=== PATIENT | female | born 1970 ===

== ENCOUNTER 2020-07-27 08:48 | Outpatient (REF) | payer OTHER, SELFPAY ==
[2020-07-27 13:50] LABS: CT PCR NOT DETECTED (Not Detect.)
[2020-07-27 13:52] LABS: NG PCR NOT DETECTED (Not Detect.)
[2020-07-28 08:00] LABS: Syphilis Screen Nonreactive (Nonreactive)
[2020-07-28 08:55] LABS: ~HepC Num1 0.29 S/CO (0.00-0.79); ~Hepatitis C Antibody Nonreactive (Nonreactive)
[2020-07-28 09:29] LABS: HBsAGNum1 0.22 S/CO (0.00-0.99); Hepatitis B Surface Antigen Negative (Negative)
[2020-07-28 09:34] LABS: BV Int Neg Control Negative (Negative); BV Int Pos Control Positive (Positive)
[2020-08-02 08:29] LABS: HIV AB/AG Nonreactive (Nonreactive); HIV Num 1 0.11 S/CO (0.00-0.99)
[2020-08-03 06:16] LABS: HPV mRNA E6/E7 Not Detected (Not Detected)
== END 2020-07-27 08:49 | disposition home or self-care (01) ==
LOC: CF 08:48
PROVIDERS: PCP Internal Medicine; Visit Provider Advanced Practice Midwife
DX: Z01.419 Encounter for gynecological examination (general) (routine) without abnormal findings (principal); Z11.59 Encounter for screening for other viral diseases; Z11.4 Encounter for screening for human immunodeficiency virus [HIV]; Z11.3 Encounter for screening for infections with a predominantly sexual mode of transmission; N89.8 Other specified noninflammatory disorders of vagina; R32 Unspecified urinary incontinence
CPT/HCPCS: 86695; 86696; 86780; 86803; 87340; 87389; 87480; 87491; 87510; 87591; 87624; 87625; 87660; 88142

== ENCOUNTER 2020-08-04 10:05 | Outpatient (REF) | payer OTHER, SELFPAY | END 2020-08-04 10:06 | disposition home or self-care (01) | LOC: HO.LAB 10:05 | PROVIDERS: PCP Internal Medicine; Visit Provider Internal Medicine | DX: Z20.828 Contact with and (suspected) exposure to other viral communicable diseases (principal) | CPT/HCPCS: 87635 ==

== ENCOUNTER 2020-09-11 07:52 | Outpatient (REF) | payer OTHER, SELFPAY ==
--- NOTE | 2020-09-11 07:57 | MM_ITS ---
EXAMINATION: MM SCREENING DIGITAL BREAST TOMOSYNTHESIS, BILATERAL CLINICAL INFORMATION: Screening. Asymptomatic. The lifetime risk of breast cancer based on the Tyrer-Cuzick Model is 7%. COMPARISON: Mammography: 09/06/2019, 08/21/2018, 08/25/2017, 04/08/2016 TECHNIQUE: Digital breast tomosynthesis is performed in both the craniocaudal and mediolateral oblique views along with computer-aided detection (CAD). Synthesized 2D images are generated from the tomosynthesis. FINDINGS: There are scattered areas of fibroglandular density (ACR BI-RADS breast composition Category b). Parenchymal pattern is similar to prior studies. There is no developing density or interval mass or architectural abnormality. There is small stable lobulated density mid 12:00 right breast. No abnormal calcifications. The skin contours are smooth. MM/MM tomosynthesis screening BI IMPRESSION: No significant changes from prior studies. ASSESSMENT: BI-RADS 2: Benign RECOMMENDATION: Routine annual mammography screening. This patient's information was entered into a reminder system with a target due date for their next mammogram.
== END 2020-09-11 07:53 | disposition home or self-care (01) ==
LOC: HO.MAMMO 07:52
PROVIDERS: PCP Internal Medicine; Visit Provider Hospitalist
DX: Z12.31 Encounter for screening mammogram for malignant neoplasm of breast (principal)
CPT/HCPCS: 77063; 77067

== ENCOUNTER → 2020-11-19 10:16 | Outpatient (REF) | payer OTHER, SELFPAY ==
--- NOTE | 2020-11-19 10:27 | ECG_ITS ---
Test Reason : UNSPEC CHEST PAIN Blood Pressure : / mmHG Vent. Rate : 073 BPM Atrial Rate : 073 BPM P-R Int : 142 ms QRS Dur : 070 ms QT Int : 376 ms P-R-T Axes : 012 -04 -17 degrees QTc Int : 414 ms Sinus rhythm with Premature atrial complexes Nonspecific T wave abnormality Abnormal ECG When compared with ECG of 11-APR-2017 11:44, Premature atrial complexes are now Present Referred By: Millie Agee Electronically Signed By:Rangle Nava
== END ==
LOC: HO.CARD 10:16
PROVIDERS: PCP Internal Medicine; Visit Provider Nurse Practitioner Family
DX: R07.9 Chest pain, unspecified (principal)
CPT/HCPCS: 93005

== ENCOUNTER 2020-11-20 07:51 | Outpatient (REF) | payer OTHER, SELFPAY ==
[2020-11-20 08:11] LABS: MANUAL DIFF FLAG NO
[2020-11-20 08:25] LABS: Basophils Percent Auto 0.6 % (0-2); Eosinophils Absolute Auto 0.1 X10*3/uL (0.0-0.4); Eosinophils Percent Auto 0.8 % (0-4); Hematocrit 34.7 % (37-47); Hemoglobin 10.9 g/dl (12.0-16.0); Imm Gran Abs Auto 0.01 X10*3/uL (0.00-0.03); Imm Gran Pct Auto 0.2 % (0.0-0.4); Lymphocytes Absolute Auto 2.3 X10*3/uL (1.2-4.9); Lymphocytes Percent Auto 36.3 % (20-40); Mean Corpuscular HGB Conc 31.4 g/dl (31.0-35.0); Mean Corpuscular Volume 85.9 fL (80-98); Mean Platelet Volume 9.7 fL (9.4-12.3); Monocytes Absolute Auto 0.6 X10*3/uL (0.1-1.2); Monocytes Percent Auto 9.3 % (2-11); Neutrophils Absolute Auto 3.3 X10*3/uL (2.0-8.3); Neutrophils Percent Auto 52.8 % (45-73); Platelet Count 363 X10*3/uL (160-400); Red Blood Count 4.04 X10*6/uL (4.20-5.50); Red Cell Distribution Width 16.5 % (11.0-16.0); White Blood Count 6.2 X10*3/uL (4.8-10.8)
[2020-11-20 08:42] LABS: Anion Gap 9 (12-20); Blood Urea Nitrogen 12 mg/dL (9-16); Calcium 8.5 mg/dL (8.4-10.2); Carbon Dioxide 29 mmol/L (22-29); Chloride 105 mmol/L (96-108); Cholesterol 177 mg/dL; Estimated Glomerular Filt Rate > 60; Glucose Fasting 97 mg/dL (60-99); HDL Cholesterol 42 mg/dL; LDL Cholesterol Calculated 123 mg/dl; Potassium 4.3 mmol/L (3.3-5.1); Sodium 139 mmol/L (135-145); Triglycerides 61 mg/dL
[2020-11-20 08:48] LABS: Troponin-I High Sensitivity < 3.5 ng/L (<3.5-17.0)
== END 2020-11-20 07:52 | disposition home or self-care (01) ==
LOC: HO.LAB 07:51
PROVIDERS: PCP Internal Medicine; Visit Provider Nurse Practitioner Family
DX: R07.9 Chest pain, unspecified (principal)
CPT/HCPCS: 36415; 80048; 80061; 84484; 85025

== ENCOUNTER 2021-01-12 10:35 | Outpatient (REF) | payer OTHER, SELFPAY ==
--- NOTE | ~2021-01-12 | XR_ITS ---
EXAMINATION: BILATERAL FOOT X-RAY CLINICAL INFORMATION: Pain COMPARISON: CT of the left foot October 2019 and x-ray October 2014. X-ray of the right foot March 2019 TECHNIQUE: 3 views of each foot FINDINGS: Left: Bone alignment is normal. No fracture or dislocation is seen. Joint spaces are normal. There are small calcaneal spurs. Right foot: Bone alignment is normal. No fracture or dislocation is seen. Joint spaces are normal. There are small calcaneal spurs. XR/XR foot RT 2V IMPRESSION: Small bilateral calcaneal spurs.
--- NOTE | ~2021-01-12 | XR_ITS ---
EXAMINATION: BILATERAL FOOT X-RAY CLINICAL INFORMATION: Pain COMPARISON: CT of the left foot October 2019 and x-ray October 2014. X-ray of the right foot March 2019 TECHNIQUE: 3 views of each foot FINDINGS: Left: Bone alignment is normal. No fracture or dislocation is seen. Joint spaces are normal. There are small calcaneal spurs. Right foot: Bone alignment is normal. No fracture or dislocation is seen. Joint spaces are normal. There are small calcaneal spurs. XR/XR foot LT 2V IMPRESSION: Small bilateral calcaneal spurs.
--- NOTE | ~2021-01-12 | XR_ITS ---
EXAMINATION: XR LUMBOSACRAL SPINE CLINICAL INFORMATION: Pain COMPARISON: None TECHNIQUE: Three views of the lumbosacral spine. FINDINGS: The vertebral bodies and posterior elements are normal. The disc spaces are preserved and the vertebral alignment is normal. The paraspinal soft tissues are normal. XR/XR lumbar spine 2-3V IMPRESSION: Unremarkable examination.
[2021-01-12 12:02] LABS: MANUAL DIFF FLAG NO
[2021-01-12 12:12] LABS: Basophils Percent Auto 0.7 % (0-2); Eosinophils Percent Auto 0.7 % (0-4); Hematocrit 37.3 % (37-47); Hemoglobin 11.9 g/dl (12.0-16.0); Imm Gran Abs Auto 0.01 X10*3/uL (0.00-0.03); Imm Gran Pct Auto 0.2 % (0.0-0.4); Lymphocytes Absolute Auto 2.3 X10*3/uL (1.2-4.9); Lymphocytes Percent Auto 39.8 % (20-40); Mean Corpuscular HGB Conc 31.9 g/dl (31.0-35.0); Mean Corpuscular Hemoglobin 27.7 pg (27.0-33.0); Mean Corpuscular Volume 86.7 fL (80-98); Mean Platelet Volume 10.5 fL (9.4-12.3); Monocytes Absolute Auto 0.6 X10*3/uL (0.1-1.2); Monocytes Percent Auto 10.4 % (2-11); Neutrophils Absolute Auto 2.8 X10*3/uL (2.0-8.3); Neutrophils Percent Auto 48.2 % (45-73); Platelet Count 381 X10*3/uL (160-400); Red Cell Distribution Width 17.6 % (11.0-16.0); White Blood Count 5.9 X10*3/uL (4.8-10.8)
[2021-01-12 12:42] LABS: Alanine Aminotransferase 22 U/L (0-31); Albumin Level 4.2 g/dL (3.5-5.0); Alkaline Phosphatase 92 U/L (39-117); Anion Gap 13 (12-20); Aspartate Amino Transferase 28 U/L (5-31); Bilirubin Total 0.3 mg/dL (0.0-1.0); Blood Urea Nitrogen 11 mg/dL (9-16); C Reactive Protein 0.19 mg/dL (< or = 0.50); Calcium 8.9 mg/dL (8.4-10.2); Carbon Dioxide 26 mmol/L (22-29); Chloride 104 mmol/L (96-108); Estimated Glomerular Filt Rate > 60; Glucose Random 89 mg/dL (60-115); Potassium 4.1 mmol/L (3.3-5.1); Rheumatoid Factor < 15.0 IU/mL (<15.0); Sodium 139 mmol/L (135-145); Total Protein 6.9 g/dL (6.5-8.0)
[2021-01-12 12:52] LABS: Erythrocyte Sedimentation Rate 10 MM/HR (0-20)
[2021-01-12 13:03] LABS: Thyroid Stimulating Hormone 1.63 uIU/mL (0.32-4.0)
[2021-01-13 15:27] LABS: Cyclic Citrullinated Peptide <16 UNITS
[2021-01-14 22:17] LABS: Anti Nuclear Antibody Pattern Nuclear, Nucleolar; Anti Nuclear Antibody Screen POSITIVE (NEGATIVE); Anti Nuclear Antibody Titer 1:40 titer
[2021-01-16 14:06] LABS: Vitamin D 25-OH, D2 <4 ng/mL; Vitamin D 25-OH, D3 26 ng/mL; Vitamin D 25-OH, Total 26 ng/mL (30-100)
== END 2021-01-12 10:36 | disposition home or self-care (01) ==
LOC: HO.LAB 10:35
PROVIDERS: PCP Internal Medicine; Visit Provider Student in an Organized Health Care Education/Training Program
DX: M25.50 Pain in unspecified joint (principal); Z79.899 Other long term (current) drug therapy
CPT/HCPCS: 36415; 72100; 73620; 80053; 82306; 84443; 85025; 85652; 86038; 86039; 86140; 86200; 86431; 99202

== ENCOUNTER → 2021-01-13 13:01 | Outpatient (BNVA) | payer OTHER, SELFPAY | PROVIDERS: PCP Internal Medicine; Visit Provider Internal Medicine Cardiovascular Disease | DX: I49.1 Atrial premature depolarization (principal); R00.2 Palpitations | CPT/HCPCS: 93005; 99202 ==

== ENCOUNTER → 2021-02-24 13:54 | Outpatient (BNVA) | payer OTHER, SELFPAY | PROVIDERS: PCP Internal Medicine; Visit Provider Nurse Practitioner Family ==

== ENCOUNTER 2021-02-28 10:18 | Outpatient (REF) | payer OTHER, SELFPAY ==
[2021-02-28 11:08] LABS: MANUAL DIFF FLAG NO
[2021-02-28 11:19] LABS: Basophils Percent Auto 0.6 % (0-2); Eosinophils Percent Auto 0.3 % (0-4); Hematocrit 39.3 % (37-47); Hemoglobin 12.7 g/dl (12.0-16.0); Imm Gran Abs Auto 0.02 X10*3/uL (0.00-0.03); Imm Gran Pct Auto 0.3 % (0.0-0.4); Lymphocytes Percent Auto 32.4 % (20-40); Mean Corpuscular HGB Conc 32.3 g/dl (31.0-35.0); Mean Corpuscular Hemoglobin 28.5 pg (27.0-33.0); Mean Corpuscular Volume 88.1 fL (80-98); Monocytes Absolute Auto 0.5 X10*3/uL (0.1-1.2); Monocytes Percent Auto 7.8 % (2-11); Neutrophils Absolute Auto 3.7 X10*3/uL (2.0-8.3); Neutrophils Percent Auto 58.6 % (45-73); Platelet Count 355 X10*3/uL (160-400); Red Blood Count 4.46 X10*6/uL (4.20-5.50); Red Cell Distribution Width 16.1 % (11.0-16.0); White Blood Count 6.3 X10*3/uL (4.8-10.8)
[2021-02-28 11:38] LABS: Iron 56 mcg/dL (30-160); Percent Iron Saturation 16 % (15-50); Total Iron Binding Capacity 349 mcg/dL (228-428); Unsaturated Iron Binding 293 ug/dL
[2021-02-28 11:51] LABS: HIV AB/AG Nonreactive (Nonreactive); HIV Num 1 0.09 S/CO (0.00-0.99); ~HepC Num1 0.23 S/CO (0.00-0.79); ~Hepatitis C Antibody Nonreactive (Nonreactive)
[2021-02-28 11:57] LABS: HBsAGNum1 0.24 S/CO (0.00-0.99); Hepatitis B Surface Antigen Negative (Negative)
[2021-02-28 15:10] LABS: Syphilis Screen Nonreactive (Nonreactive)
[2021-03-01 01:37] LABS: CT PCR NOT DETECTED (Not Detect.); NG PCR NOT DETECTED (Not Detect.)
[2021-03-02 20:52] LABS: TS Negative Control Passed; TS Panel A 1; TS Panel B 0; TS Positive Control Passed; TSpotTB Negative (SeeBelow)
[2021-03-08 17:17] LABS: HSV 1 IgM IFA Negative (Negative); HSV 2 IgM IFA Negative (Negative)
== END 2021-02-28 10:19 | disposition home or self-care (01) ==
LOC: HO.LAB 10:18
PROVIDERS: Advanced Practice Midwife; Absent Provider Internal Medicine; PCP Internal Medicine; Visit Provider Nurse Practitioner Family
DX: Z01.419 Encounter for gynecological examination (general) (routine) without abnormal findings (principal); Z11.1 Encounter for screening for respiratory tuberculosis; Z01.84 Encounter for antibody response examination; Z11.3 Encounter for screening for infections with a predominantly sexual mode of transmission; Z20.2 Contact with and (suspected) exposure to infections with a predominantly sexual mode of transmission; K21.9 Gastro-esophageal reflux disease without esophagitis; D64.9 Anemia, unspecified
CPT/HCPCS: 36415; 83540; 85025; 86481; 86695; 86696; 86780; 86803; 87338; 87340; 87389; 87491; 87591

== ENCOUNTER → 2021-03-03 10:17 | Outpatient (BNVA) | payer OTHER, SELFPAY | PROVIDERS: PCP Internal Medicine; Visit Provider Student in an Organized Health Care Education/Training Program | DX: M25.50 Pain in unspecified joint (principal) | CPT/HCPCS: 99212 ==

== ENCOUNTER → 2021-03-18 12:52 | Outpatient (REF) | payer OTHER, SELFPAY ==
--- NOTE | 2021-03-18 12:56 | CA_ITS ---
Transthoracic Echocardiogram Patient (Last, First, Middle): Tere Schulte D Gender: Female Date of : 1970 Age: 50 Procedure Date: 03/18/2021 Procedure Type: Transthoracic Echocardiogram Location: OP Height: 162.56 cm Weight: 73.48 kg BSA: 1.79 m2 Heart Rate: bpm BP: 106 / 66 mmHg Bridge Repairer: Scott MD: Rangel Nava MD Symptoms: I49.1 - Atrial premature depolarization Study Quality: Good ECG Rhythm: Sinus Conclusions: - The left ventricular systolic function is normal. The visually estimated ejection fraction is between 55-60%. - No obvious valvular pathology seen on this study. Findings Left Ventricle Normal left ventricular cavity size. There is normal left ventricular wall thickness. The left ventricular systolic function is normal. The visually estimated ejection fraction is between 55-60%. There is no evidence of regional wall motion abnormalities. Diastolic function is normal for age. Right Ventricle Normal right ventricular cavity size and systolic function. Atria The left atrium is normal in size. The right atrium is normal in size. Aortic Valve There is a normal trileaflet aortic valve. There is no aortic valve stenosis. There is no aortic valve regurgitation. Mitral Valve The mitral valve appears normal. There is trace mitral valve regurgitation. There is no mitral valve stenosis. Pulmonic Valve The pulmonic valve was not well visualized. Tricuspid Valve Normal tricuspid valve structure. There is mild tricuspid valve regurgitation. The pulmonary artery systolic pressure is normal. Great Vessels The asc aorta and aortic arch are normal in size. Venous The inferior vena cava is normal in size and collapses greater than 50% with inspiration. Pericardium/Pleural There is no evidence of pericardial effusion. Prior Study Comparison No significant change compared to prior study dated: 09/01/2017. Recommendations, Care & Conclusions No obvious valvular pathology seen on this study. Measurements 2D Linear Measurements RVIDd: 3.10 RVIDd Index: 1.73 IVSd: 0.72 0.6-0.9/0.6-1.0 cm LVIDd: 4.48 3.9-5.3/4.2-5.9 cm LVIDd Index: 2.50 2.4-3.2/2.2-3.1 cm/m2 LVIDs: 2.59 2.0-3.6 cm LVPWd: 0.81 0.7-1.1 cm Ao Root: 2.90 2.1-3.5 cm LA Diam: 3.60 2.7-3.8/3.0-4.0 cm LAIDs Index: 2.01 1.5-2.3 cm/m2 LV Mass: 131.92 67-162/88-224 g LV Mass Index: 73.70 43-95/49-115 g/m2 LVOT Diam: 2.10 3.0+(-)1.3 cm 2D Systolic Function EF 4C: 56.70 >55% EF 2C: 61.90 >55% EF BiP: 57.80 >55% Mitral Valve MV Pk E: 0.69 MV PK A: 0.57 MV Decel Time: 301.00 E/A: 1.20 E'Lateral: 12.40 E'Medial: 11.30 E/E' Med: 6.10 E/E' Lat: 5.60 Aortic Valve AoV Pk Srini: 1.45 AoV Mn Srini: 1.05 AoV VTI: 0.28 AoV Pk Grad: 8.00 Aov Mn Grad: 5.00 MELCHOR Cont.VTI: 3.03 LVOT LVOT Pk Srini: 1.37 LVOT Mn Srini: 0.84 LVOT VTI: 0.25 LVOT Pk Grad: 8.00 LVOT Mn Grad: 3.00 LVOT Diam: 2.10 LVOT Area: 3.46 Diastolic Function MV Pk E: 0.69 MV Pk A: 0.57 E/A: 1.20 E'Medial: 11.30 E/E' Med: 6.10 E' Laterial: 12.40 E/E' Lat: 5.60 Tricuspid Valve TR Pk Srini: 2.21 TR Pk Grad: 20.00 RA Press: 3.00 RVSP: 23.00 Great Vessels Aorta Ao Root-2D: 2.90 2.0-3.7 cm Ao Asc: 2.50 2.1-3.4 cm Ao Arch: 2.70 Updated in Other Vendor System with Status of Final Donald Trevino MD electronically signed on 03/19/2021 12:38:35 PM with status of Final
--- NOTE | 2021-03-18 13:30 | ECG_ITS ---
Hook-up date: 2021-03-18 13:50:00 Duration: 47:59:00 Test Indications: ATRIAL PREMATURE DEPOLARIZATION Medications: 838807 QRS complexes 202 Ventricular ectopics which represent <1 % of total QRS comp. 2161 Supraventricular ectopics which represent 1 % of total QRS comp. * Paced QRS complexs which represent % of total QRS comp. VENTRICULAR ECTOPY 200 Isolated 3 Bigeminal Cycles 1 Couplets 0 Runs 0 Beats in Runs * Beats LONGEST at * BPM at :: -- * Beats FASTEST at * BPM at :: -- SUPRAVENTRICULAR ECTOPY 1792 Isolated 88 Couplets 35 Runs 193 Beats in Runs 17 Beats LONGEST at 142 BPM at 17:01:17 2021-03-19 3 Beats FASTEST at 161 BPM at 09:34:26 2021-03-19 HEART RATES 57 MIN at 03:51:45 2021-03-19 75 AVG 144 MAX at 14:52:47 2021-03-18 LONGEST RR 1.1440 secs at 11:31:01 2021-03-20 S-T LEVELS Channel 1 - 128 mm at 13:50:00 2021-03-18 - 128 mm at 13:50:00 2021-03-18 Channel 2 - 128 mm at 13:50:00 2021-03-18 - 128 mm at 13:50:00 2021-03-18 Channel 3 - 128 mm at 03:30:91 -- - 128 mm at 03:30:91 Basic rhythm Normal sinus rhythm No long pause or profound bradycardia Frequent Premature atrial complexes Occasional Premature ventricular complexes Patient did not report any symptoms in the diary Referred By: Rangel Nava Overread By: RADHA ROSA MD
== END ==
LOC: HO.CARD 12:52
PROVIDERS: Visit Provider Internal Medicine Cardiovascular Disease
DX: I49.1 Atrial premature depolarization (principal)
CPT/HCPCS: 93225; 93226; 93306

== ENCOUNTER → 2021-03-28 10:46 | Outpatient (BNVA) | payer OTHER, SELFPAY | PROVIDERS: PCP Internal Medicine; Visit Provider Nurse Practitioner Family ==

== ENCOUNTER 2021-03-30 10:42 | Outpatient (REF) | payer OTHER, SELFPAY ==
[2021-03-31 02:21] LABS: CT PCR NOT DETECTED (Not Detect.); NG PCR NOT DETECTED (Not Detect.)
[2021-03-31 09:41] LABS: BV Int Neg Control Negative (Negative); BV Int Pos Control Positive (Positive)
== END 2021-03-30 10:43 | disposition home or self-care (01) ==
LOC: HO.LAB 10:42
PROVIDERS: PCP Internal Medicine; Visit Provider Advanced Practice Midwife
DX: N76.0 Acute vaginitis (principal); R32 Unspecified urinary incontinence; R10.2 Pelvic and perineal pain; Z20.2 Contact with and (suspected) exposure to infections with a predominantly sexual mode of transmission
CPT/HCPCS: 81003; 87086; 87147; 87480; 87491; 87510; 87591; 87660; 99212

== ENCOUNTER 2021-04-23 11:19 | Emergency (ER) | payer OTHER, SELFPAY ==
--- NOTE | ~2021-04-23 | CT_ITS ---
EXAMINATION: CT ABDOMEN AND PELVIS WITH CONTRAST CLINICAL INFORMATION: Diffuse abdominal pain. Constipation. History of celiac disease. COMPARISON: CT of the abdomen and pelvis done on 03/18/2014. TECHNIQUE: Multidetector volumetric images were obtained from the superior aspect of the liver through the pubic symphysis following administration 85 mL of Omnipaque 350 intravenous contrast. I personally reviewed the images and, if necessary, I edited the report. I agree with the report as now presented. Oral contrast: No This CT examination was performed using dose optimization techniques as appropriate, variously including the following: *Automated exposure control *Adjustment of mA and/or kV according to patient size (this includes techniques or standardized protocols for targeted exams where dose is matched to indication/reason for exam; i.e. extremities or head) *Use of iterative reconstruction technique DLP: 605 mGy-cm FINDINGS: LUNG BASES: The visualized lung bases are unremarkable. LIVER, GALLBLADDER, AND BILIARY TREE: The liver is normal in size, shape, and attenuation. No focal hepatic lesion or biliary ductal dilatation is present. The gallbladder is unremarkable with no evidence of radiopaque gallstones, gallbladder wall thickening, or obvious pericholecystic inflammatory changes. PANCREAS: Unremarkable. SPLEEN: Unremarkable. ADRENAL GLANDS: Unremarkable. KIDNEYS AND URETERS: The kidneys are normal in size, shape, and attenuation. No hydronephrosis, hydroureter, or calculi seen. No perinephric stranding. BLADDER: Unremarkable. GASTROINTESTINAL TRACT: The small and large bowel are unremarkable. The appendix is unremarkable. Tip of the appendix is located along the inferior surface of the right lobe of the liver. ABDOMINAL WALL: No significant hernia is appreciated. LYMPH NODES: Normal. VASCULAR: Unremarkable. PELVIC VISCERA: Unremarkable. OSSEOUS STRUCTURES: Unremarkable. CT/CT abdomen pelvis w con IMPRESSION: No CT evidence of any acute intra-abdominal and/or intrapelvic pathology is present.
[2021-04-23 11:39] VITALS: BP 99/60; PULSE 79; RESP 21; TEMP 36.8; O2SAT 98; BMI 29.5
[2021-04-23 12:01] VITALS: BP 99/60; PULSE 79; RESP 21; TEMP 36.8; O2SAT 98
[2021-04-23] MEDS: 0.9 % Sodium Chloride 1,000 ML 999 ML IVCONT (12:43)
[2021-04-23] MEDS: Ketorolac Tromethamine 30 MG/ML VIAL IVPUSH (12:43)
[2021-04-23] MEDS: ondansetron HCL 4 MG/2 ML VIAL IVPUSH (12:44)
[2021-04-23 12:49] LABS: MANUAL DIFF FLAG NO
[2021-04-23 12:50] LABS: Basophils Percent Auto 0.3 % (0-2); Eosinophils Percent Auto 0.5 % (0-4); Hematocrit 37.9 % (37-47); Hemoglobin 12.3 g/dl (12.0-16.0); Imm Gran Abs Auto 0.04 X10*3/uL (0.00-0.03); Imm Gran Pct Auto 0.5 % (0.0-0.4); Lymphocytes Absolute Auto 1.5 X10*3/uL (1.2-4.9); Lymphocytes Percent Auto 17.8 % (20-40); Mean Corpuscular HGB Conc 32.5 g/dl (31.0-35.0); Mean Corpuscular Hemoglobin 28.9 pg (27.0-33.0); Mean Corpuscular Volume 89.2 fL (80-98); Mean Platelet Volume 9.6 fL (9.4-12.3); Monocytes Absolute Auto 0.6 X10*3/uL (0.1-1.2); Neutrophils Absolute Auto 6.3 X10*3/uL (2.0-8.3); Neutrophils Percent Auto 73.9 % (45-73); Platelet Count 360 X10*3/uL (160-400); Red Blood Count 4.25 X10*6/uL (4.20-5.50); Red Cell Distribution Width 14.7 % (11.0-16.0); White Blood Count 8.6 X10*3/uL (4.8-10.8)
[2021-04-23 12:56] LABS: INTERNATIONAL NORM RATIO 1.1 (0.9-1.1)
--- NOTE | 2021-04-23 13:13 | ED_ITS ---
HPI - Abdominal Pain General Chief Complaint: Abdominal Pain Stated Complaint: abdominal pain Time Seen by Provider: 04/23/21 12:12 Source: patient Mode of arrival: ambulatory Limitations: language barrier ( Ugandan-speaking) History of Present Illness HPI narrative: 50-year-old female with a past medical history of celiac disease, chronic kidney disease, constipation, GERD, anemia, anxiety and depression, herpes, premature atrial contractions and polyarthralgia presenting to the ED with complaints of Nausea with diffuse abdominal pain with associated constipation despite taking her senna on medications for her constipation. She denies any fevers, vomiting, chest pain, shortness of breath, diarrhea, black or bloody stools, dysuria, hematuria or any other symptoms complaints or concerns at this time. MD elicited complaint: abdominal pain Pertinent past history: none ( celiac disease) Onset (ago): day(s) ( today) Pain Consistency: constant Location: diffuse Severity: moderate Quality: cramping, aching and fullness Radiation: none Migration to: no migration Exacerbating factors: nothing Relieving factors: nothing Associated symptoms: nausea and constipation Treatments prior to arrival: other (senna last night no symptomatic relief) Related Data Home Medications Medication Instructions Recorded Confirmed fluticasone propionate 50 1 spray INTRANASAL DAILY 07/27/20 02/22/21 mcg/actuation nasal spray,suspension Previous Rx's Medication Instructions Recorded ferrous sulfate 325 mg (65 mg 325 mg PO DAILY 90 Days #90 tab 11/24/20 iron) tablet cholecalciferol (vitamin D3) 25 25 mcg PO DAILY #30 tab 01/19/21 mcg (1,000 unit) tablet escitalopram oxalate 10 mg tablet 10 mg PO DAILY 90 Days #90 tab 02/22/21 ketoconazole 2 % shampoo 1 appl TOPICAL 2XW 30 Days #120 ml 02/22/21 omeprazole 20 mg capsule,delayed 20 mg PO DAILY 90 Days #90 cap 02/22/21 release sennosides 8.6 mg capsule 8.6 mg PO BEDTIME 90 Days #90 cap 02/22/21 clotrimazole-betamethasone 1 1 appl TOPICAL BID PRN 7 Days #45 g 03/30/21 %-0.05 % topical cream fluconazole 150 mg tablet 150 mg PO ONCE PRN 1 Days #1 tab 03/30/21 polyethylene glycol 3350 [Miralax] 17 g PO DAILY #238 g 04/23/21 simethicone 166 mg PO BEDTIME PRN #14 cap 04/23/21 Allergies Allergy/AdvReac Type Severity Reaction Status Date / Time gluten [GLUTEN] Allergy Intermediate CELIAC Verified 04/23/21 11:39 DISEASE Penicillins [PENICILLINS] Allergy Intermediate AGITATION Unverified 04/23/21 11:39 Review of Systems Review of Systems Constitutional : No Weight loss, No Fever, No Chills, No Night Sweats, No Fatigue, NoMalaise ENT/Mouth: No ear pain, No sore throat, No Difficulty swallowing Cardiovascular : No Chest Pain, No SOB, No Dyspnea on Exertion, No Orthopnea, NoEdema, No Palpitations Respiratory : No Cough, No Sputum, No Wheezing, No Dyspnea Gastrointestinal : positive nausea /abdominal pain /constipation, No Vomiting, No Diarrhea, No blood streaked emesis, No coffee-ground emesis, No gross hematemesis, No blood streak stool, No gross hematochezia, No Melena Genitourinary : No irregular bleeding, No Dysuria, No Urinary Frequency, No Hematuria,No Urinary Incontinence, No Urgency, No Flank Pain Musculoskeletal : No joint pain, No Myalgias, No Joint Swelling Skin : No Skin Lesions, No rash Neuro : No Weakness, No Numbness, No Paresthesias, No Loss of Consciousness, NoDizziness, No Headache Psych : No Social Issues, Heme/Lymph: No Bruising, No Bleeding,No Lymphadenopathy Endocrine : No Polyuria, No Polydipsia, No Temperature Intolerance Yes all other systems are reviewed and are negative Physical Exam Vital Signs: Vital Signs: Last Vital Signs Temp 98.3 F 04/23/21 12:01 Pulse 79 04/23/21 12:01 Resp 21 H 04/23/21 12:01 BP 99/60 04/23/21 12:01 Pulse Ox 98 04/23/21 12:01 Body Mass Index 29.5 vital signs have been reviewed as normal and appeared to be correct. Blood pressure normal. Heart rate normal. Respiration rate normal. Temperature normal. Oxygen saturation normal. Appearance: Alert. Oriented X3. No acute distress. Head: Normal external exam. Normocephalic. Eyes: PERRLA. EOMI. Conjunctiva and sclera normal. Eyelids normal. ENT: Pharynx normal. Uvula midline. Moist mucous membranes. Neck: Normal inspection. Neck supple. FROM. No adenopathy. No meningeal signs. CVS: Normal heart rate and rhythm. Heart sound normal. No murmurs noted. Pulses normal throughout. Respiratory: No respiratory distress. Painless inspiration. Breath sounds normal. No wheezes/rales/rhonchi noted. Chest nontender. No accessory muscle usage noted or decreased air movement noted. Abdomen: Soft and mild tenderness diffusely. Nondistended. No guarding. No rigidity. Bowel sounds normal in all 4 quadrants. No distention noted. No organomegaly noted. No visible injury noted. No rebound tenderness. Negative Rovsing sign. Negative obturator's sign. Negative psoas sign. Negative Hand sign. Back: No CVA tenderness. Full range of motion noted. Skin: Skin warm and dry. Normal skin color. Normal skin turgor. No rashes/lesions/lacerations noted. Extremities: Extremities exhibit normal range of motion. Extremities nontender. Neuro: Oriented X 3. No motor deficit. No sensory deficit. Reflexes normal. Normal steady gait. Course Course Course Narrative: 12:25am - 50-year-old female with a past medical history of celiac disease, chronic kidney disease, constipation, GERD, anemia, anxiety and depression, herpes, premature atrial contractions and polyarthralgia presenting to the ED with complaints of Nausea with diffuse abdominal pain with associated constipation despite taking her senna on medications for her constipation. Plan: Labs, CT scan abdomen pelvis with IV contrast, UA. Provide a L of IV fluids, 4 mg of Zofran and 30 mg of IV Toradol then re-evaluate. Reevaluation(s) Reevaluation #1: - Labs returned and all within normal limits. UA within normal limits no evidence of UTI. CT scan abdomen and pelvis negative for any acute processes only revealed chronic changes. Therefore will DC home with MiraLax and instructions return if any new or worsening symptoms to follow up with primary care provider. Patient understands agrees with this plan. Time: 14:58 [facility] - Abdominal Pain Medical Records Attestation: I reviewed the patient's medical records. Lab Data Attestation: I reviewed the patient's lab results. Result diagrams: 04/23/21 12:40 04/23/21 12:40 Labs: Lab Results 04/23/21 04/23/21 04/23/21 Range/Units 12:40 12:40 12:40 WBC 8.6 (4.8-10.8) X10*3/uL RBC 4.25 (4.20-5.50) X10*6/uL Hgb 12.3 (12.0-16.0) g/dl Hct 37.9 (37-47) % MCV 89.2 (80-98) fL MCH 28.9 (27.0-33.0) pg MCHC 32.5 (31.0-35.0) g/dl RDW 14.7 (11.0-16.0) % Plt Count 360 (160-400) X10*3/uL MPV 9.6 (9.4-12.3) fL Immature Gran % (Auto) 0.5 H (0.0-0.4) % Neut % (Auto) 73.9 H (45-73) % Lymph % (Auto) 17.8 L (20-40) % Dodge % (Auto) 7.0 (2-11) % Eos % (Auto) 0.5 (0-4) % Baso % (Auto) 0.3 (0-2) % Lymph # (Auto) 1.5 (1.2-4.9) X10*3/uL Dodge # (Auto) 0.6 (0.1-1.2) X10*3/uL Eos # (Auto) 0.0 (0.0-0.4) X10*3/uL Baso # (Auto) 0.0 (0.0-0.2) X10*3/uL Abs Immat Gran (auto) 0.04 H (0.00-0.03) X10*3/uL Absolute Neuts (auto) 6.3 (2.0-8.3) X10*3/uL Absolute Nucleated RBC 0.000 (0.0-0.012) X10*3/uL Nucleated RBC % (auto) 0.0 (0.0-0.2) /100WBC PT 12.0 (9.9-13.0) SEC INR 1.1 (0.9-1.1) Sodium 138 (135-145) mmol/L Potassium 4.3 (3.3-5.1) mmol/L Chloride 108 (96-108) mmol/L Carbon Dioxide 22 (22-29) mmol/L Anion Gap 12 (12-20) BUN 12 (9-16) mg/dL Creatinine 0.75 (0.5-1.4) mg/dL Estim Creat Clear Calc 89.7 Estimated GFR > 60 Random Glucose 90 (60-115) mg/dL Calcium 9.2 (8.4-10.2) mg/dL Magnesium 2.0 (1.6-2.6) mg/dL Total Bilirubin 0.4 (0.0-1.0) mg/dL AST 27 (5-31) U/L ALT 27 (0-31) U/L Alkaline Phosphatase 80 (39-117) U/L Total Protein 6.6 (6.5-8.0) g/dL Albumin 3.9 (3.5-5.0) g/dL Urine Color Urine Appearance Urine pH (5.0-8.0) Ur Specific [place] (1.005-1.025) Urine Protein (NEG-TRACE) MG/DL Urine Glucose (UA) (NEG) MG/DL Urine Ketones (NEG) MG/DL Urine Blood (NEG) Urine Nitrite (NEG) Ur Leukocyte Esterase (NEG) 04/23/21 Range/Units 14:45 WBC (4.8-10.8) X10*3/uL RBC (4.20-5.50) X10*6/uL Hgb (12.0-16.0) g/dl Hct (37-47) % MCV (80-98) fL MCH (27.0-33.0) pg MCHC (31.0-35.0) g/dl RDW (11.0-16.0) % Plt Count (160-400) X10*3/uL MPV (9.4-12.3) fL Immature Gran % (Auto) (0.0-0.4) % Neut % (Auto) (45-73) % Lymph % (Auto) (20-40) % Dodge % (Auto) (2-11) % Eos % (Auto) (0-4) % Baso % (Auto) (0-2) % Lymph # (Auto) (1.2-4.9) X10*3/uL [place] # (Auto) (0.1-1.2) X10*3/uL Eos # (Auto) (0.0-0.4) X10*3/uL Baso # (Auto) (0.0-0.2) X10*3/uL Abs Immat Gran (auto) (0.00-0.03) X10*3/uL Absolute Neuts (auto) (2.0-8.3) X10*3/uL Absolute Nucleated RBC (0.0-0.012) X10*3/uL Nucleated RBC % (auto) (0.0-0.2) /100WBC PT (9.9-13.0) SEC INR (0.9-1.1) Sodium (135-145) mmol/L Potassium (3.3-5.1) mmol/L Chloride (96-108) mmol/L Carbon Dioxide (22-29) mmol/L Anion Gap (12-20) BUN (9-16) mg/dL Creatinine (0.5-1.4) mg/dL Estim Creat Clear Calc Estimated GFR Random Glucose (60-115) mg/dL Calcium (8.4-10.2) mg/dL Magnesium (1.6-2.6) mg/dL Total Bilirubin (0.0-1.0) mg/dL AST (5-31) U/L ALT (0-31) U/L Alkaline Phosphatase (39-117) U/L Total Protein (6.5-8.0) g/dL Albumin (3.5-5.0) g/dL Urine Color YELLOW Urine Appearance CLEAR Urine pH 6.5 (5.0-8.0) Ur Specific [place] <= 1.005 (1.005-1.025) Urine Protein NEG (NEG-TRACE) MG/DL Urine Glucose (UA) NEG (NEG) MG/DL Urine Ketones NEG (NEG) MG/DL Urine Blood NEG (NEG) Urine Nitrite NEG (NEG) Ur Leukocyte Esterase NEG (NEG) Imaging Data CT scan abdomen pelvis with IV contrast: Attestation: I personally reviewed and interpreted this imaging study as follows: Radiologist's impression: FINDINGS: LUNG BASES: The visualized lung bases are unremarkable. LIVER, GALLBLADDER, AND BILIARY TREE: The liver is normal in size, shape, and attenuation. No focal hepatic lesion or biliary ductal dilatation is present. The gallbladder is unremarkable with no evidence of radiopaque gallstones, gallbladder wall thickening, or obvious pericholecystic inflammatory changes. PANCREAS: Unremarkable. SPLEEN: Unremarkable. ADRENAL GLANDS: Unremarkable. KIDNEYS AND URETERS: The kidneys are normal in size, shape, and attenuation. No hydronephrosis, hydroureter, or calculi seen. No perinephric stranding. BLADDER: Unremarkable. GASTROINTESTINAL TRACT: The small and large bowel are unremarkable. The appendix is unremarkable. Tip of the appendix is located along the inferior surface of the right lobe of the liver. ABDOMINAL WALL: No significant hernia is appreciated. LYMPH NODES: Normal. VASCULAR: Unremarkable. PELVIC VISCERA: Unremarkable. OSSEOUS STRUCTURES: Unremarkable. CT/CT abdomen pelvis w con IMPRESSION: No CT evidence of any acute intra-abdominal and/or intrapelvic pathology is present. Discharge Plan Discharge Clinical Impression: Flatus Patient Disposition: Home, Self-Care Instructions: Constipation (ED), High Fiber Diet (ED), Gas and Bloating (ED) Prescriptions: New simethicone 166 mg capsule 166 mg PO BEDTIME PRN (Reason: abdominal distention) Qty: 14 RF: 0 polyethylene glycol 3350 [Miralax] 17 gram/dose powder 17 g PO DAILY Qty: 238 RF: 0 No Action ferrous sulfate 325 mg (65 mg iron) tablet 325 mg PO DAILY 90 Days Qty: 90 RF: 1 cholecalciferol (vitamin D3) [Vitamin D3] 25 mcg (1,000 unit) tablet 25 mcg PO DAILY Qty: 30 RF: 5 senna 8.6 mg capsule 8.6 mg PO BEDTIME 90 Days Qty: 90 RF: 3 omeprazole 20 mg capsule,delayed release(DR/EC) 20 mg PO DAILY 90 Days Qty: 90 RF: 3 ketoconazole 2 % shampoo 1 appl topical 2XW 30 Days Qty: 120 RF: 6 escitalopram oxalate 10 mg tablet 10 mg PO DAILY 90 Days Qty: 90 RF: 1 fluconazole [Diflucan] 150 mg tablet 150 mg PO ONCE PRN (Reason: personal) 1 Days Qty: 1 RF: 0 clotrimazole-betamethasone 1-0.05 % cream 1 appl topical BID PRN (Reason: itching) 7 Days Qty: 45 RF: 0 fluticasone propionate [Flonase Allergy Relief] 50 mcg/actuation spray,suspension 1 spray intranasal DAILY RF: 0 Referrals: Sisi Perez MD [Primary Care Provider] - 2 days Print Language: [place] [facility] Past Medical History Attestation statement: The following information was validated with the patient. Medical History Adult celiac disease Anemia Anxiety and depression Chest pain Depression GERD (gastroesophageal reflux disease) Herpes History of celiac disease Hx of chronic kidney disease Hx of constipation Hx of gastroesophageal reflux (GERD) PAC (premature atrial contraction) Polyarthralgia Surgical History Hx of section Hx of varicose vein ligation and stripping Family History Family History Mother Hx of diabetes mellitus Hx of hypertensive heart disease Father Hx of diabetes mellitus Hx of hypertensive heart disease Paternal Uncle History of colon cancer Maternal Grandmother Cancer Daughter No problems noted. Sister No problems noted. Son No problems noted. Son No problems noted. Brother No problems noted. Social History Social History Household Members: None Alcohol intake: unknown Smoked in Last 30 Days: No Use of substances other than those prescribed or required for medical reasons: No Advance Directives: Yes Advance Directives Information Provided: Yes Advance Directives on File: No Patient : No Current occupational status: employed
[2021-04-23 13:26] LABS: Alanine Aminotransferase 27 U/L (0-31); Albumin Level 3.9 g/dL (3.5-5.0); Alkaline Phosphatase 80 U/L (39-117); Anion Gap 12 (12-20); Aspartate Amino Transferase 27 U/L (5-31); Bilirubin Total 0.4 mg/dL (0.0-1.0); Blood Urea Nitrogen 12 mg/dL (9-16); Calcium 9.2 mg/dL (8.4-10.2); Carbon Dioxide 22 mmol/L (22-29); Chloride 108 mmol/L (96-108); Creatinine Clr Calc Pharmacy 89.7; Estimated Glomerular Filt Rate > 60; Glucose Random 90 mg/dL (60-115); Potassium 4.3 mmol/L (3.3-5.1); Sodium 138 mmol/L (135-145); Total Protein 6.6 g/dL (6.5-8.0)
[2021-04-23] MEDS: iohexoL 350 MG/ML 100 ML INFUS..BTL IV (14:18)
[2021-04-23 14:50] LABS: Glucose Urine UA NEG (NEG); Leukocyte Esterase Urine NEG (NEG); Nitrite Urine NEG (NEG); PH 6.5 (5.0-8.0); Specific Gravity - Urine <= 1.005 (1.005-1.025); Urine Blood NEG (NEG); Urine Ketones NEG (NEG); Urine Protein NEG (NEG-TRACE)
[2021-04-23 14:51] LABS: Appearance Urine CLEAR; Color Urine YELLOW
[2021-04-23 15:10] VITALS: BP 108/71; PULSE 76; RESP 16; TEMP 36.6; O2SAT 98
== END 2021-04-23 15:18 | disposition home or self-care (01) ==
PROVIDERS: Physician Assistant Medical; Emergency Provider Emergency Medicine Emergency Medical Services; PCP Internal Medicine
DX: R14.3 Flatulence (principal); R10.9 Unspecified abdominal pain; K90.0 Celiac disease; N18.9 Chronic kidney disease, unspecified
CPT/HCPCS: 36415; 74177; 80053; 81003; 83735; 85025; 85610; 96361; 96374; 96375; 99284; 99285; J1885; J2405; Q9967

== ENCOUNTER 2021-09-24 15:12 | Emergency (ER) | payer OTHER, SELFPAY | END 2021-09-24 17:30 | disposition left against medical advice (07) | PROVIDERS: Emergency Provider Emergency Medicine; PCP Internal Medicine | DX: M54.9 Dorsalgia, unspecified (principal) ==

== ENCOUNTER 2021-09-27 14:48 | Outpatient (REF) | payer OTHER, SELFPAY ==
--- NOTE | ~2021-09-27 | MM_ITS ---
EXAMINATION: MM SCREENING DIGITAL BREAST TOMOSYNTHESIS, BILATERAL CLINICAL INFORMATION: Screening. Asymptomatic. The lifetime risk of breast cancer based on the Tyrer-Cuzick Model is 10.7%. COMPARISON: Mammography: September 11, 2020 and studies dating back to January 07, 2014 TECHNIQUE: Digital breast tomosynthesis is performed in both the craniocaudal and mediolateral oblique views along with computer-aided detection (CAD). Synthesized 2D images are generated from the tomosynthesis. FINDINGS: There are scattered areas of fibroglandular density (ACR BI-RADS breast composition Category b). There are no significant masses, abnormal calcifications, or other abnormalities. MM/MM tomosynthesis screening BI IMPRESSION: There are no significant changes from prior study. ASSESSMENT: BI-RADS 1: Negative RECOMMENDATION: Routine annual mammography screening. This patient's information was entered into a reminder system with a target due date for their next mammogram.
== END 2021-09-27 14:49 | disposition home or self-care (01) ==
LOC: HO.MAMMO 14:48
PROVIDERS: Visit Provider Internal Medicine
DX: Z12.31 Encounter for screening mammogram for malignant neoplasm of breast (principal)
CPT/HCPCS: 77063; 77067

== ENCOUNTER → 2021-09-28 10:52 | Outpatient (BNVA) | payer OTHER, SELFPAY | PROVIDERS: PCP Internal Medicine; Referring Provider Internal Medicine; Visit Provider Nurse Practitioner Family | DX: K58.1 Irritable bowel syndrome with constipation (principal); K21.9 Gastro-esophageal reflux disease without esophagitis; K59.04 Chronic idiopathic constipation; R14.0 Abdominal distension (gaseous) | CPT/HCPCS: 99212 ==

== ENCOUNTER 2021-10-10 09:36 | Outpatient (REF) | payer OTHER, SELFPAY ==
[2021-10-10 09:51] LABS: MANUAL DIFF FLAG NO
[2021-10-10 10:08] LABS: Basophils Percent Auto 0.6 % (0-2); Eosinophils Absolute Auto 0.1 X10*3/uL (0.0-0.4); Eosinophils Percent Auto 1.3 % (0-4); Hematocrit 39.5 % (37.0-47.0); Hemoglobin 12.7 g/dl (12.0-16.0); Imm Gran Abs Auto 0.01 X10*3/uL (0.00-0.03); Imm Gran Pct Auto 0.2 % (0.0-0.4); Lymphocytes Percent Auto 31.7 % (20-40); Mean Corpuscular HGB Conc 32.2 g/dl (31.0-35.0); Mean Corpuscular Hemoglobin 28.9 pg (27.0-33.0); Mean Corpuscular Volume 89.8 fL (80.0-98.0); Mean Platelet Volume 9.9 fL (9.4-12.3); Monocytes Absolute Auto 0.6 X10*3/uL (0.1-1.2); Monocytes Percent Auto 9.1 % (2-11); Neutrophils Absolute Auto 3.5 x10*3/uL (2.0-8.3); Neutrophils Percent Auto 57.1 % (45-73); Platelet Count 401 X10*3/uL (160-400); Red Cell Distribution Width 15.4 % (11.0-16.0); White Blood Count 6.2 X10*3/uL (4.8-10.8)
[2021-10-10 10:36] LABS: Alanine Aminotransferase 28 U/L (0-31); Alkaline Phosphatase 84 U/L (39-117); Anion Gap 12 (12-20); Aspartate Amino Transferase 30 U/L (5-31); Bilirubin Total 0.3 mg/dL (0.0-1.0); Blood Urea Nitrogen 13 mg/dL (9-16); Calcium 9.2 mg/dL (8.4-10.2); Carbon Dioxide 25 mmol/L (22-29); Chloride 108 mmol/L (96-108); Cholesterol 185 mg/dL; Estimated Glomerular Filt Rate > 60; Glucose Fasting 89 mg/dL (60-99); HDL Cholesterol 35 mg/dL; LDL Cholesterol Calculated 132 mg/dl; Potassium 4.6 mmol/L (3.3-5.1); Sodium 140 mmol/L (135-145); Total Protein 7.1 g/dL (6.5-8.0); Triglycerides 93 mg/dL
[2021-10-16 13:16] LABS: Vitamin D 25-OH, D2 <4 ng/mL; Vitamin D 25-OH, D3 25 ng/mL; Vitamin D 25-OH, Total 25 ng/mL (30-100)
== END 2021-10-10 09:37 | disposition home or self-care (01) ==
LOC: HO.LAB 09:36
PROVIDERS: PCP Internal Medicine; Visit Provider Internal Medicine
DX: Z00.00 Encounter for general adult medical examination without abnormal findings (principal); E55.9 Vitamin D deficiency, unspecified; E78.5 Hyperlipidemia, unspecified; D64.9 Anemia, unspecified; Z87.19 Personal history of other diseases of the digestive system
CPT/HCPCS: 36415; 80053; 80061; 82306; 85025

== ENCOUNTER 2021-10-25 17:02 | Emergency (ER) | payer OTHER, SELFPAY ==
[2021-10-25 18:08] VITALS: BP 113/76; PULSE 81; RESP 18; TEMP 36.4; O2SAT 99; BMI 29.5
[2021-10-25 18:23] LABS: Appearance Urine CLEAR; Color Urine YELLOW; Glucose Urine UA NEG (NEG); Leukocyte Esterase Urine NEG (NEG); Nitrite Urine NEG (NEG); Urine Blood NEG (NEG); Urine Ketones NEG (NEG); Urine Protein NEG (NEG-TRACE)
[2021-10-25 20:25] VITALS: BP 119/83; PULSE 73; RESP 16; O2SAT 100
--- NOTE | 2021-10-25 20:36 | ED_ITS ---
HPI - Back Pain/Injury General Chief Complaint: Back Pain/Injury Stated Complaint: back pain x 2 months Time Seen by Provider: 10/25/21 20:36 Source: patient Mode of arrival: ambulatory Limitations: no limitations History of Present Illness HPI Narrative: 51 y/o female presenting with acute on chronic middle right sided back pain. She reports pain started in July and she has had multiple rounds of medications for this and seen multiple different providers. She had normal x-rays. She reports being given muscle relaxers, pain patches, anti- inflammatories with minimal relief. She denies any shortness of breath or chest pain. She reports the pain is radiating down the right side of her back. Pain is worse with palpation, movement and deep breaths. She has no urinary symptoms. She denies any nausea, vomiting, abdominal pain. She works as a [employer] does a lot of bending and twisting but denies any heavy lifting. MD elicited complaint: back pain Pertinent past history: prior back pain Onset (ago): month(s) Timing: constant Severity: moderate Similar Symptoms Previously: Yes Quality: spasming and throbbing Location: right upper back Radiation: other (Right lower back) Exacerbating factors: movement, deep breaths and coughing/sneezing Relieving factors: immobilization Context: unknown Associated symptoms: denies other symptoms Treatments prior to arrival: other medications Related Data Home Medications Medication Instructions Recorded Confirmed fluticasone propionate 50 1 spray INTRANASAL DAILY 07/27/20 10/18/21 mcg/actuation nasal spray,suspension (Flonase Allergy Relief) Previous Rx's Medication Instructions Recorded ketoconazole 2 % shampoo 1 appl TOPICAL 2XW 30 Days #120 ml 02/22/21 clotrimazole-betamethasone 1 1 appl TOPICAL BID PRN 7 Days #45 g 03/30/21 %-0.05 % topical cream sennosides 8.6 mg capsule (senna) 8.6 mg PO BEDTIME 90 Days #90 cap 05/25/21 cholecalciferol (vitamin D3) 25 25 mcg PO DAILY #30 tab 07/19/21 mcg (1,000 unit) tablet (Vitamin D3) pantoprazole 40 mg tablet,delayed 40 mg PO DAILY #30 tab 09/28/21 release simethicone 180 mg capsule (Gas 180 mg PO BID PRN #60 cap 12/08/21 Relief (simethicone)) escitalopram oxalate 10 mg tablet 10 mg PO DAILY 90 Days #90 tab 10/05/21 linaclotide 145 mcg capsule 145 mcg PO DAILY #30 cap 10/05/21 (Linzess) baclofen 10 mg tablet 10 mg PO BEDTIME PRN #7 tab 10/18/21 ibuprofen 600 mg tablet 600 mg PO Q8H PRN #21 tab 10/18/21 hydrocodone 5 mg-acetaminophen 325 1 tab PO Q8H PRN #8 tab 10/25/21 mg tablet naproxen 500 mg tablet 500 mg PO BID PRN #20 tab 10/25/21 Allergies Allergy/AdvReac Type Severity Reaction Status Date / Time gluten [GLUTEN] Allergy Intermediate CELIAC Verified 10/25/21 18:08 DISEASE Penicillins [PENICILLINS] Allergy Intermediate AGITATION Verified 10/25/21 18:08 Review of Systems Review of Systems: Constitutional: No Fever, No Chills Cardiovascular: No Chest Pain, No SOB Respiratory: No Cough, No Sputum Gastrointestinal: No Nausea, No Vomiting, No Diarrhea, No abdominal Pain Genitourinary: No Dysuria, No Urinary Frequency, No Hematuria Musculoskeletal: + joint pain, + Myalgias Skin: No Skin Lesions, No rash Neuro: No Weakness, No Numbness Heme/Lymph: No Bruising, No Lymphadenopathy PMFSH Past Medical History Medical History Adult celiac disease Anemia Anxiety and depression Chest pain Depression GERD (gastroesophageal reflux disease) Herpes History of celiac disease Hx of chronic kidney disease Hx of constipation Hx of gastroesophageal reflux (GERD) Mild recurrent major depression PAC (premature atrial contraction) Physical exam Polyarthralgia Surgical History Hx of section Hx of varicose vein ligation and stripping Family History Family History Mother Hx of diabetes mellitus Hx of hypertensive heart disease Father Hx of diabetes mellitus Hx of hypertensive heart disease Paternal Uncle History of colon cancer Maternal Grandmother Cancer Daughter No problems noted. Sister No problems noted. Son No problems noted. Son No problems noted. Brother No problems noted. Social History Social History Household Members: None Housing: Apartment Alcohol intake: current Alcohol intake frequency: a few times a month Alcohol type: hard liquor Patient Tobacco Use Status: Former Tobacco user Tobacco use type: Cigarette e-Cigarette/Vaping Use: Never Used Second Hand Smoke Exposure: No Advance Directives: No Advance Directives Information Provided: Yes service: No Current occupational status: employed Current occupational exposures/hazards: No Cognitive needs: No Hearing needs: No Vision needs: No Physical Exam Vital Signs: Vital Signs: Last Vital Signs Temp 97.6 F 10/25/21 18:08 Pulse 73 10/25/21 20:25 Resp 16 10/25/21 20:25 BP 119/83 10/25/21 20:25 Pulse Ox 100 10/25/21 20:25 BMI result Body Mass Index 29.5 Appearance: Alert. Oriented X3. No acute distress. Eyes: Pupils equal, round and reactive to light. ENT: Pharynx normal. Neck: Normal inspection. Neck supple. CVS: Normal heart rate and rhythm. Pulses normal. Respiratory: No respiratory distress. Breath sounds normal. Abdomen: Soft and nontender. +BS x4 Back: middle right thoracic area with soft tissue tenderness and palpable muscle spasm. no spinal tenderness. no CVA tenderness Skin: Skin warm and dry. Normal skin color. Normal skin turgor. No rashes. Extremities: No lower extremity edema. Neuro: Oriented X 3.Grossly normal, nonfocal Course Course Course Narrative: 51-year-old female presents to the ER with acute on chronic middle right thoracic back pain, nontraumatic and has been going on since July. She has no urinary symptoms. She has palpable tenderness and spasm on exam consistent with muscular pain. Will give her a dose of oxycodone and Toradol and reassess. Her urinalysis is negative for infection or blood. She had recent x-rays that were negative. Her lungs are clear, doubt PE. Reevaluation(s) Reevaluation #1: Patient feeling better after medication. She was encourage follow-up with her primary care doctor. She has appointment physical therapy on Sunday. Will give her short course of narcotics for acute pain as well as NSAID for anti-inflammatory effects. Stable for discharge home with close outpatient follow-up. MDM - Back Pain/Injury Lab Data Labs: Lab Results 10/25/21 Range/Units 18:17 Urine Color YELLOW Urine Appearance CLEAR Urine pH 6.0 (5.0-8.0) Ur Specific [place] 1.020 (1.005-1.025) Urine Protein NEG (NEG-TRACE) MG/DL Urine Glucose (UA) NEG (NEG) MG/DL Urine Ketones NEG (NEG) MG/DL Urine Blood NEG (NEG) Urine Nitrite NEG (NEG) Ur Leukocyte Esterase NEG (NEG) Critical Care Time Critical Care Time Critical Care Time: No Discharge Plan Discharge Clinical Impression: Muscle strain of right upper back Qualifiers: Encounter type: initial encounter Qualified Code(s): S29.012A - Strain of muscle and tendon of back wall of thorax, initial encounter Patient Disposition: Home, Self-Care Instructions: Thoracic Back Strain (ED) Additional Instructions: Your pain is most likely muscular. Your urine test was normal. No bending, lifting or twisting. Use ice several times per day for 20 minutes at a time for the next 48 hours and then change to heat. Take medications as prescribed to help with pain and discomfort. Follow up with your Primary Care Doctor this week. If your pain worsens, if you develop new numbness, tingling, weakness, loss of function or incontinence call 911 or come back to the ER right away for evaluation. Lo m?s probable es que [place] dolor sea muscular. [place] an?lisis de orina fue normal. Sin agacharse, levantar ni torcer. Use hielo varias veces al d?a dino 20 minutos a la vez dino las pr?ximas 48 horas y luego cambie a calor. Tiburones los medicamentos recetados para aliviar el dolor y la incomodidad. Kassie un seguimiento con [place] m?dico de atenci?n primaria esta semana. Si [place] dolor empeora, si presenta entumecimiento, hormigueo, debilidad, p?rdida de funci?n o incontinencia nuevos, llame al 911 o regrese a la perla de emergencias de inmediato para lucinda evaluaci?n. Prescriptions: New naproxen 500 mg tablet 500 mg PO BID PRN (Reason: pain) Qty: 20 RF: 0 hydrocodone-acetaminophen 5-325 mg tablet 1 tab PO Q8H PRN (Reason: pain) Qty: 8 RF: 0 No Action senna 8.6 mg capsule 8.6 mg PO BEDTIME 90 Days Qty: 90 RF: 3 cholecalciferol (vitamin D3) [Vitamin D3] 25 mcg (1,000 unit) tablet 25 mcg PO DAILY Qty: 30 RF: 5 Linzess 145 mcg capsule 145 mcg PO DAILY Qty: 30 RF: 2 ketoconazole 2 % shampoo 1 appl topical 2XW 30 Days Qty: 120 RF: 6 escitalopram oxalate 10 mg tablet 10 mg PO DAILY 90 Days Qty: 90 RF: 1 baclofen 10 mg tablet 10 mg PO BEDTIME PRN (Reason: pain) Qty: 7 RF: 0 ibuprofen 600 mg tablet 600 mg PO Q8H PRN (Reason: pain) Qty: 21 RF: 0 clotrimazole-betamethasone 1-0.05 % cream 1 appl topical BID PRN (Reason: itching) 7 Days Qty: 45 RF: 0 fluticasone propionate [Flonase Allergy Relief] 50 mcg/actuation spray,suspension 1 spray intranasal DAILY RF: 0 pantoprazole 40 mg tablet,delayed release (DR/EC) 40 mg PO DAILY Qty: 30 RF: 2 simethicone [Gas Relief (simethicone)] 180 mg capsule 180 mg PO BID PRN (Reason: abdominal distention) Qty: 60 RF: 1
[2021-10-25] MEDS: oxyCODONE HCl Immed Release 5 MG TABLET PO (21:03)
[2021-10-25] MEDS: Ketorolac Tromethamine 30 MG/ML VIAL IM (21:03)
== END 2021-10-25 22:17 | disposition home or self-care (01) ==
PROVIDERS: Emergency Provider Emergency Medicine Emergency Medical Services; PCP Internal Medicine
DX: S29.012A Strain of muscle and tendon of back wall of thorax, initial encounter (principal); X50.0XXA Overexertion from strenuous movement or load, initial encounter; Y93.89 Activity, other specified; Y92.9 Unspecified place or not applicable; Y99.9 Unspecified external cause status
CPT/HCPCS: 81003; 96372; 99283; 99284; J1885

== ENCOUNTER → 2021-11-07 11:40 | Outpatient (BNVA) | payer OTHER, SELFPAY | PROVIDERS: PCP Internal Medicine; Referring Provider Internal Medicine; Visit Provider Nurse Practitioner Family | DX: K21.9 Gastro-esophageal reflux disease without esophagitis (principal); K59.04 Chronic idiopathic constipation | CPT/HCPCS: 99212 ==

== ENCOUNTER 2021-11-13 11:02 | Emergency (ER) | payer OTHER, SELFPAY ==
--- NOTE | ~2021-11-13 | XR_ITS ---
EXAMINATION: XR KNEE, RIGHT CLINICAL INFORMATION: Pain post fall COMPARISON: Previous x-ray July 2016 TECHNIQUE: Four views of the right knee. FINDINGS: Bones and soft tissues are normal. No fracture or joint effusion. Alignment is anatomic. Joint spaces are well maintained. No abnormal soft tissue calcification. XR/XR knee RT 4V IMPRESSION: Normal right knee.
--- NOTE | ~2021-11-13 | CT_ITS ---
CT HEAD WITHOUT IV CONTRAST CT CERVICAL SPINE WITHOUT IV CONTRAST CT MAXILLOFACIAL WITHOUT IV CONTRAST INDICATION: Loss of consciousness with headache. COMPARISON: Head CT 03/16/2019. TECHNIQUE: Multidetector CT acquisitions of the head, maxillofacial region, and cervical spine were obtained without IV contrast. Multiplanar reformats were acquired and utilized for image interpretation. This CT examination was performed using dose optimization techniques as appropriate, variously including the following: *Automated exposure control *Adjustment of mA and/or kV according to patient size (this includes techniques or standardized protocols for targeted exams where dose is matched to indication/reason for exam; i.e. extremities or head) *Use of iterative reconstruction technique FINDINGS: HEAD: There is no intracranial hemorrhage, hydrocephalus, extra-axial surface collection, midline shift, or other herniation pattern. Betts to white matter differentiation is diffusely maintained without evidence of an evolved acute territorial infarct. The basilar cisterns are preserved. No significant soft tissue abnormality. No acute osseous abnormality. The paranasal sinuses and the mastoid air cells are well aerated. MAXILLOFACIAL: Slightly depressed nasal bone fractures bilaterally, on the right side associated with soft tissue swelling and mild subcutaneous gas. No additional fractures. Small retention cyst within the right maxillary sinus. Nasal septum deviated to the right side. Bony orbits are intact. CERVICAL SPINE: There is anatomic alignment of the vertebral bodies and posterior elements. There is no acute fracture and there is no acute subluxation. The craniocervical and atlantoaxial articulations are normal. There is no prevertebral soft tissue swelling. No significant soft tissue abnormality within the neck. The visualized lung apices are clear. CT/CT cervical spine wo con IMPRESSION: - Slightly depressed nasal bone fractures bilaterally, on the right side associated with soft tissue swelling and mild subcutaneous gas. - No acute intracranial findings. - No acute osseous findings within the cervical spine.
[2021-11-13 11:07] VITALS: BP 142/76; PULSE 90; O2SAT 98
--- NOTE | 2021-11-13 11:12 | ED_ITS ---
HPI - Fall General Chief Complaint: General Medical <ELSA Edwards - Last Filed: 11/13/21 14:04> Stated Complaint: fell on water <ELSA Edwards - Last Filed: 11/13/21 14:04> Time Seen by Provider: 11/13/21 11:04 <ELSA Edwards - Last Filed: 11/13/21 14:04> Source: patient <ELSA Edwards - Last Filed: 11/13/21 14:04> Mode of arrival: ambulatory <ELSA Edwards Last Filed: 11/13/21 14:04> Limitations: no limitations <ELSA Edwards Last Filed: 11/13/21 14:04> History of Present Illness HPI Narrative: This is a 51-year-old female past medical history significant for celiac disease, depression presenting to the emergency department status post fall with pain to her nose, head, neck and face. Patient tells me that she got her sneaker caught on something on the ground, she fell forward, she tried to catch herself on a cabinet however she was unable to catch herself so she ended up hitting her face on the cabinet, and falling to the ground. She tells me this happened just prior to her arrival. She also reports associated right knee pain which she hit when she fell on the ground. Patient is not on blood thinners. She tells me that she think she lost consciousness. She denies vision changes, nausea, vomiting, abdominal pain, chest pain, shortness of breath. She also denies all preceding symptoms. <ELSA Edwards - Last Filed: 11/13/21 14:04> MD complaint: fall <ELSA Edwards Last Filed: 11/13/21 14:04> Onset (ago): minute(s) (30) <ELSA Edwards Last Filed: 11/13/21 14:04> Fall from: standing <ELSA Edwards - Last Filed: 11/13/21 14:04> Fall witnessed: no <ELSA Edwards Last Filed: 11/13/21 14:04> Place fall occurred: home <ELSA Edwards - Last Filed: 11/13/21 14:04> Loss of consciousness: yes <ELSA Edwards - Last Filed: 11/13/21 14:04> Prolonged down time: no <ELSA Edwards - Last Filed: 11/13/21 14:04> Symptoms prior to fall: none <ELSA Edwards - Last Filed: 11/13/21 14:04> Context: tripped/slipped <ELSA Edwards - Last Filed: 11/13/21 14:04> Location of injury: head, face and neck <ELSA Edwards - Last Filed: 11/13/21 14:04> Severity: moderate <ELSA Edwards - Last Filed: 11/13/21 14:04> Quality: aching <ELSA Edwards - Last Filed: 11/13/21 14:04> Associated symptoms (after fall): headache <ELSA Edwards - Last Filed: 11/13/21 14:04> Related Data Home Medications: Home Medications Medication Instructions Recorded Confirmed fluticasone propionate 50 1 spray INTRANASAL DAILY 07/27/20 10/18/21 mcg/actuation nasal spray,suspension (Flonase Allergy Relief) Previous Rx's Medication Instructions Recorded ketoconazole 2 % shampoo 1 appl TOPICAL 2XW 30 Days #120 ml 02/22/21 clotrimazole-betamethasone 1 1 appl TOPICAL BID PRN 7 Days #45 g 03/30/21 %-0.05 % topical cream simethicone 180 mg capsule (Gas 180 mg PO BID PRN #60 cap 09/28/21 Relief (simethicone)) escitalopram oxalate 10 mg tablet 10 mg PO DAILY 90 Days #90 tab 10/05/21 baclofen 10 mg tablet 10 mg PO BEDTIME PRN #7 tab 10/18/21 ibuprofen 600 mg tablet 600 mg PO Q8H PRN #21 tab 10/18/21 hydrocodone 5 mg-acetaminophen 325 1 tab PO Q8H PRN #8 tab 10/25/21 mg tablet naproxen 500 mg tablet 500 mg PO BID PRN #20 tab 10/25/21 cholecalciferol (vitamin D3) 50 50 mcg PO DAILY #90 cap 11/07/21 mcg (2,000 unit) capsule linaclotide 145 mcg capsule 145 mcg PO DAILY #90 cap 11/07/21 (Linzess) pantoprazole 40 mg tablet,delayed 40 mg PO DAILY #90 tab 11/07/21 release oxycodone 5 mg capsule 5 mg PO BID PRN #8 cap 11/13/21 <ELSA Edwards Last Filed: 11/13/21 14:04> Allergies/Adverse Reactions: Allergies Allergy/AdvReac Type Severity Reaction Status Date / Time gluten [GLUTEN] Allergy Intermediate CELIAC Verified 11/07/21 11:43 DISEASE Penicillins [PENICILLINS] Allergy Intermediate AGITATION Verified 11/07/21 11:43 <ELSA Edwards Last Filed: 11/13/21 14:04> Review of Systems Review of Systems: Constitutional : No Weight loss, No Fever, No Chills, No Fatigue, No Malaise ENT/Mouth : No sore throat, No Rhinorrhea Eyes: No Eye Pain, No Swelling, No Redness Cardiovascular : No Chest Pain, No SOB, No Dyspnea on Exertion, No Orthopnea, No Edema, No Palpitations Respiratory : No Cough, No Sputum, No Wheezing Gastrointestinal : No Nausea, No Vomiting, No Diarrhea, No Constipation, No abdominal Pain, No Hematochezia, No Melena Genitourinary : No Dysuria, No Urinary Frequency, No Hematuria, Musculoskeletal : No joint pain, No Myalgias, No Joint Swelling, + pain to face, +pain to nose, + neck pain Skin : No Skin Lesions, No rash Neuro : No Weakness, No Numbness, No Dizziness, + Headache Psych : No Anxiety/Panic, No Depression All other systems reviewed and are negative <ELSA Edwards Last Filed: 11/13/21 14:04> Yes all other systems are reviewed and are negative <ELSA Edwards Last Filed: 11/13/21 14:04> [facility] Past Medical History Attestation statement: The following information was validated with the patient. <ELSA Edwards Last Filed: 11/13/21 14:04> Source: old records reviewed and nursing notes reviewed <ELSA Edwards - Last Filed: 11/13/21 14:04> Medical History: Medical History Adult celiac disease Anemia Anxiety and depression Chest pain Depression GERD (gastroesophageal reflux disease) Herpes History of celiac disease Hx of chronic kidney disease Hx of constipation Hx of gastroesophageal reflux (GERD) Mild recurrent major depression PAC (premature atrial contraction) Physical exam Polyarthralgia <ELSA Edwards - Last Filed: 11/13/21 14:04> Surgical History: Surgical History Hx of section Hx of varicose vein ligation and stripping <ELSA Edwards - Last Filed: 11/13/21 14:04> Family History Family History: Family History Mother Hx of diabetes mellitus Hx of hypertensive heart disease Father Hx of diabetes mellitus Hx of hypertensive heart disease Paternal Uncle History of colon cancer Maternal Grandmother Cancer Daughter No problems noted. Sister No problems noted. Son No problems noted. Son No problems noted. Brother No problems noted. <ELSA Edwards - Last Filed: 11/13/21 14:04> Social History Social History: Social History Household Members: None Housing: Apartment Alcohol intake: current Alcohol intake frequency: a few times a month Alcohol type: hard liquor Patient Tobacco Use Status: Former Tobacco user Tobacco use type: Cigarette e-Cigarette/Vaping Use: Never Used Second Hand Smoke Exposure: No Advance Directives: No Advance Directives Information Provided: No Patient : No service: No Current occupational status: employed Current occupational exposures/hazards: No Cognitive needs: No Hearing needs: No Vision needs: No <ELSA Edwards - Last Filed: 11/13/21 14:04> Physical Exam Vital Signs: Vital Signs: Last Vital Signs Temp 97.7 F 11/13/21 11:17 Pulse 73 11/13/21 11:17 Resp 18 11/13/21 13:20 BP 117/57 L 11/13/21 11:17 Pulse Ox 97 11/13/21 11:17 BMI result Body Mass Index 29.5 VSS <ELSA Edwards - Last Filed: 11/13/21 14:04> Vital Signs: Last Vital Signs Temp 97.7 F 11/13/21 11:17 Pulse 73 11/13/21 11:17 Resp 18 11/13/21 13:20 BP 117/57 L 11/13/21 11:17 Pulse Ox 97 11/13/21 11:17 BMI result Body Mass Index 29.5 <Narinder Johnson MD - Last Filed: 11/15/21 06:51> Appearance: Alert.? Oriented X3.? No acute distress.? Head: Normocephalic, atraumatic, no step-offs or deformities Eyes: Pupils equal, round and reactive to light.? ENT: Pharynx normal.?+ pain with palpation over bilateral sides of nose, and bridge of nose. + deformity to nose + pain w/ palpation of bilateral zygomatic arches. Neck: Normal inspection.? Neck supple.? CVS: Normal heart rate and rhythm.? Pulses normal.? Respiratory: No respiratory distress.? Breath sounds normal.? Abdomen: Soft and nontender.? Skin: Skin warm and dry.? Normal skin color.? Normal skin turgor.? Extremities: No lower extremity edema.? No calf ttp. 5/5 strength to bilateral upper and lower extremities, + pain with ROM of right knee Back: No midline tenderness, no C-spine tenderness, full range of motion, no CVA tenderness bilaterally +pain with palpation of paraspinous muscles in cervical region Neuro: Oriented X 3.? No motor deficit.? No sensory deficit. <ELSA Edwards - Last Filed: 11/13/21 14:04> Course Reevaluation(s) Reevaluation #1: CT shows no intracranial hemorrhages, no acute findings with the cervical spine. It does show however, a slightly depressed nasal bone fracture bilaterally with soft tissue swelling. I discussed these findings with my attending . I have also discussed these findings with the patient and advised her to follow-up with ENT. I have given her strict return precautions and have advised her to return with new or worsening symptoms. I have provided her information with ENT is in the area so she can call and make an appointment as soon as possible. I have also given patient narcotics for pain as she reports severe 10/10 pain. Comfortable discharge home. I attest that I have reviewed patients [facility], and at the time prescribing the patient a controlled substance is appropriate based off of patients diagnosis and treatment plan. <ELSA Edwards - Last Filed: 11/13/21 14:04> Time: 14:03 <ELSA Edwards - Last Filed: 11/13/21 14:04> MDM - Fall MDM Narrative Medical decision making narrative: 1120 51 yo female presnts to ED w/ right knee pain, face pain and pain to her nose s/p falling forward and hitting her head on a cabinet, + LOC, not on thinners. PE with palpation over bilateral sides of nose, and bridge of nose. There is a deformity to nose and pain w/ palpation of bilateral zygomatic arches. Also pain with palpation of paraspinous muscles in cervical region. She also reprots pain with ROM of righ knee. Neuro nonfocal Plan - ct head/ brain, cervical spine and facial bones. Xray of right knee <ELSA Edwards - Last Filed: 11/13/21 14:04> Medical Records Attestation: I reviewed the patient's medical records. <ELSA Edwards - Last Filed: 11/13/21 14:04> Lab Data Attestation: I reviewed the patient's lab results. <ELSA Edwards - Last Filed: 11/13/21 14:04> Labs: Lab Results 11/13/21 Range/Units 13:19 Urine Test NEGATIVE (NEGATIVE) <ELSA Edwards - Last Filed: 11/13/21 14:04> Lab Results 11/13/21 Range/Units 13:19 Urine Test NEGATIVE (NEGATIVE) <Narinder Johnson MD - Last Filed: 11/15/21 06:51> Imaging Data r. knee xray : Attestation: I personally reviewed and interpreted this imaging study as follows: <ELSA Edwards - Last Filed: 11/13/21 14:04> Radiologist's impression: FINDINGS: Bones and soft tissues are normal. No fracture or joint effusion. Alignment is anatomic. Joint spaces are well maintained. No abnormal soft tissue calcification.? XR/XR knee RT 4V IMPRESSION: Normal right knee. ? <ELSA Edwards - Last Filed: 11/13/21 14:04> facial bones, head, cervical spine: Attestation: I personally reviewed and interpreted this imaging study as follows: <ELSA Edwards - Last Filed: 11/13/21 14:04> Radiologist's impression: CT/CT facial bones wo con IMPRESSION: - Slightly depressed nasal bone fractures bilaterally, on the right side associated with soft tissue swelling and mild subcutaneous gas. ? - No acute intracranial findings. ? - No acute osseous findings within the cervical spine. <ELSA Edwards - Last Filed: 11/13/21 14:04> Critical Care Time Critical Care Time Critical Care Time: No <ELSA Edwards - Last Filed: 11/13/21 14:04> Discharge Plan Discharge Clinical Impression: Fall, Knee pain, Fracture of nasal bones <ELSA Edwards - Last Filed: 11/13/21 14:04> Patient Disposition: Home, Self-Care <ELSA Edwards - Last Filed: 11/13/21 14:04> Instructions: Nasal Fracture (ED) <ELSA Edwards - Last Filed: 11/13/21 14:04> Additional Instructions: Take your medications as prescribed. If you were prescribed antibiotics today, it is important that you take your medication to their entirety, do not skip any doses, do not finish them early. Follow-up with your primary care provider this week. Follow up with ENT Return to the emergency department with new or worsening symptoms. In case of emergency call 911 [facility], [address] [address], [place] [address] <ELSA Edwards - Last Filed: 11/13/21 14:04> Prescriptions: New oxycodone 5 mg capsule 5 mg PO BID PRN (Reason: pain) Qty: 8 RF: 0 No Action naproxen 500 mg tablet 500 mg PO BID PRN (Reason: pain) Qty: 20 RF: 0 hydrocodone-acetaminophen 5-325 mg tablet 1 tab PO Q8H PRN (Reason: pain) Qty: 8 RF: 0 ketoconazole 2 % shampoo 1 appl topical 2XW 30 Days Qty: 120 RF: 6 escitalopram oxalate 10 mg tablet 10 mg PO DAILY 90 Days Qty: 90 RF: 1 baclofen 10 mg tablet 10 mg PO BEDTIME PRN (Reason: pain) Qty: 7 RF: 0 ibuprofen 600 mg tablet 600 mg PO Q8H PRN (Reason: pain) Qty: 21 RF: 0 clotrimazole-betamethasone 1-0.05 % cream 1 appl topical BID PRN (Reason: itching) 7 Days Qty: 45 RF: 0 fluticasone propionate [Flonase Allergy Relief] 50 mcg/actuation spray,suspension 1 spray intranasal DAILY RF: 0 simethicone [Gas Relief (simethicone)] 180 mg capsule 180 mg PO BID PRN (Reason: abdominal distention) Qty: 60 RF: 1 cholecalciferol (vitamin D3) 50 mcg (2,000 unit) capsule 50 mcg PO DAILY Qty: 90 RF: 3 pantoprazole 40 mg tablet,delayed release (DR/EC) 40 mg PO DAILY Qty: 90 RF: 2 Linzess 145 mcg capsule 145 mcg PO DAILY Qty: 90 RF: 2 <ELSA Edwards - Last Filed: 11/13/21 14:04> Referrals: Juan Hoffman [Physician] - 2 days Sisi Perez MD [Primary Care Provider] - 2 days <ELSA Edwards - Last Filed: 11/13/21 14:04> Stand Alone Forms: Work/School Release <ELSA Edwards - Last Filed: 11/13/21 14:04> Interventions: ED Discharge Assessment Last Done: 11/13/21 14:17 <ELSA Edwards - Last Filed: 11/13/21 14:04> Discharge Date/Time: 11/13/21 14:17 <ELSA Edwards - Last Filed: 11/13/21 14:04>
[2021-11-13 11:17] VITALS: BP 117/57; PULSE 73; RESP 18; TEMP 36.5; O2SAT 97; BMI 29.5
[2021-11-13] MEDS: oxyCODONE HCl Immed Release 5 MG TABLET PO (12:12)
[2021-11-13 13:20] VITALS: RESP 18
[2021-11-13 13:40] LABS: UPreg QC Valid YES; Urine Pregnancy NEGATIVE (NEGATIVE)
== END 2021-11-13 14:17 | disposition home or self-care (01) ==
PROVIDERS: Physician Assistant; Emergency Provider Emergency Medicine; PCP Internal Medicine
DX: S02.2XXA Fracture of nasal bones, initial encounter for closed fracture (principal); S89.91XA Unspecified injury of right lower leg, initial encounter; M25.561 Pain in right knee; M54.2 Cervicalgia; W01.190A Fall on same level from slipping, tripping and stumbling with subsequent striking against furniture, initial encounter; Y93.9 Activity, unspecified; Y92.000 Kitchen of unspecified non-institutional (private) residence as the place of occurrence of the external cause; Y99.9 Unspecified external cause status; Z79.899 Other long term (current) drug therapy; Z87.891 Personal history of nicotine dependence
CPT/HCPCS: 70450; 70486; 72125; 73564; 81025; 99283

== ENCOUNTER 2021-11-28 11:29 | Outpatient (REF) | payer OTHER, SELFPAY ==
[2021-11-28 17:05] LABS: CT PCR NOT DETECTED (Not Detect.); NG PCR NOT DETECTED (Not Detect.)
[2021-11-29 09:05] LABS: BV Int Neg Control Negative (Negative); BV Int Pos Control Positive (Positive)
== END 2021-11-28 11:30 | disposition home or self-care (01) ==
LOC: HO.LAB 11:29
PROVIDERS: PCP Internal Medicine; Visit Provider Advanced Practice Midwife
DX: Z01.419 Encounter for gynecological examination (general) (routine) without abnormal findings (principal); Z20.2 Contact with and (suspected) exposure to infections with a predominantly sexual mode of transmission
CPT/HCPCS: 87480; 87491; 87510; 87591; 87660

== ENCOUNTER 2022-03-02 08:14 | Outpatient (REF) | payer OTHER, SELFPAY ==
[2022-03-02 10:35] LABS: HIV AB/AG Nonreactive (Nonreactive); HIV Num 1 0.14 S/CO (0.00-0.99); ~HepC Num1 0.25 S/CO (0.00-0.79); ~Hepatitis C Antibody Nonreactive (Nonreactive)
[2022-03-03 04:17] LABS: HBsAGNum1 0.25 S/CO (0.00-0.99); Hepatitis B Surface Antigen Negative (Negative)
[2022-03-03 08:34] LABS: Syphilis Screen Nonreactive (Nonreactive)
== END 2022-03-02 08:15 | disposition home or self-care (01) ==
LOC: HO.LAB 08:14
PROVIDERS: PCP Internal Medicine; Visit Provider Advanced Practice Midwife
DX: Z12.4 Encounter for screening for malignant neoplasm of cervix (principal); Z11.4 Encounter for screening for human immunodeficiency virus [HIV]; Z20.2 Contact with and (suspected) exposure to infections with a predominantly sexual mode of transmission
CPT/HCPCS: 36415; 86780; 86803; 87340; 87389

== ENCOUNTER → 2022-05-15 11:45 | Outpatient (BNVA) | payer OTHER, SELFPAY | PROVIDERS: PCP Internal Medicine; Referring Provider Internal Medicine; Visit Provider Nurse Practitioner Family | DX: K59.01 Slow transit constipation (principal); K90.0 Celiac disease; K64.9 Unspecified hemorrhoids | CPT/HCPCS: 99212 ==

== ENCOUNTER 2022-07-09 11:50 | Emergency (ER) | payer OTHER, SELFPAY ==
[2022-07-09 11:59] VITALS: BP 118/67; PULSE 73; RESP 18; TEMP 37.2; O2SAT 98; BMI 29.2
--- NOTE | 2022-07-09 14:25 | PC.NURSE ---
called x3 to triage for reassessment. Presumed LWT at 1725
== END 2022-07-09 15:30 | disposition left against medical advice (07) ==
LOC: HO.ED 15:27
PROVIDERS: Emergency Provider Emergency Medicine; PCP Internal Medicine
DX: M54.2 Cervicalgia (principal)
CPT/HCPCS: 99281

== ENCOUNTER 2022-08-12 11:34 | Emergency (ER) | payer OTHER, SELFPAY ==
[2022-08-12 11:37] VITALS: BP 121/78; PULSE 73; RESP 18; TEMP 36.7; O2SAT 99; BMI 29.5
--- OUTSIDE RECORDS SUMMARY | 2022-08-12 13:51 | XMS_ITS ---
:1970 Author Care Team Providers Name Role Phone MARIEL COLLIER MD Primary Care Provider [phone] KVNG FIGUEROA PA-C Referring Provider [phone] MIK LIM Rn Home [facility] [phone] Allergies Code Code System Name Reaction Severity Status Onset Penicillins ? ? Active ? Medications Name Status Start Date Stop Date ? ? acetaminophen 300 mg-codeine 30 mg tablet Active ? Not available TOME JUAN LUIS TABLETA POR V?A ORAL CADA SEIS HORAS CUANDO SEA NECESARIO PARA EL DOLOR aspirin 81 mg tablet,delayed release Active ? Not available TOME JUAN LUIS TABLETA POR VIA ORAL TODOS LOS COBB azithromycin 250 mg tablet Completed ? 12/03 TOME 2 TABLETAS POR V?A ORAL HOY, [place] TOME 1 TABLETA POR D?A ZUNILDA 4 D? bupropion HCl 100 mg tablet Completed ? 04/23 TOME JUAN LUIS TABLETA DOS VECES AL ANJALI bupropion HCl XL 150 mg 24 hr tablet, extended release Completed ? 05/21/2017 TAKE 1 TABLET IN THE MORNING bqkhpofbvn-zwepgytzxhgxd-fuvvazbl 50 mg-325 mg-40 mg tablet Acti ve ? Not available TOME JUAN LUIS TABLETA TODOS LOS COBB CUANDO SEA NECESARIO Calcium 500 + D Active ? Not available calcium carbonate 600 mg-vitamin D3 20 mcg (800 unit) tablet Act get ? Not available TOME JUAN LUIS TABLETA POR VIA ORAL DOS VECES AL ANJALI cholecalciferol (vitamin D3) 25 mcg (1,000 unit) capsule Active ? Not available TOME JUAN LUIS CAPSULA POR V?A ORAL TODOS LOS D? clindamycin HCl 300 mg capsule Completed ? 0 07/03/2017 TAKE ONE CAPSULE BY MOUTH EVERY 6 HOURS UNTIL FINISHED Daily-Brandee tablet Active ? Not available TOME JUAN LUIS TABLETA POR VIA ORAL TODOS LOS COBB docusate sodium 100 mg capsule Active ? N ot available TOME JUAN LUIS CAPSULA POR VIA ORAL TODOS LOS COBB CUANDO SEA NECESAR IO famotidine 40 mg tablet Completed ? 07/03/20 17 TOME JUAN LUIS TABLETA POR VIA ORAL DOS VECES AL ANJALI CUANDO SEA NECESARIO FOR REFLUX fluconazole 150 mg tablet Completed ? 2017 TAKE ONE TABLET TODAY, REPEAT IN 3 DAYS IF SYMPTOMS PERSIST fluticasone propionate 50 mcg/actuation nasal spray,suspension A ctive ? Not available PUMP 1 SPRAY INTO CADA VENTANILLA DE LA NARIZ TODOS LOS D? ibuprofen 600 mg tablet Completed ? 12/26/19 18 TOME JUAN LUIS TABLETA POR V?A ORAL CADA OCHO HORAS CUANDO SEA NECESARIO PARA EL DOLOR ibuprofen 800 mg tablet Completed ? 12/26/19 18 TAKE 1 TABLET BY MOUTH EVERY 6 TO 8 HOURS NEEDED lactulose 10 gram/15 mL oral solution Active ? Not available TAKE 15 ML ONCE A DAY ORALLY 30 DAY(S) lidocaine-prilocaine 2.5 %-2.5 % topical cream Active ? Not available APLIQUE AL ?ENEIDA AFECTADA CADA DOS HORAS PRIOR TO PROCEDURE loratadine 10 mg tablet Active ? Not avai lable TAKE 1 TABLET EVERY DAY lorazepam 1 mg tablet Active ? Not availa ble TOME JUAN LUIS TABLETA POR V?A ORAL TODOS LOS D? AL ACOSTARSE Y 1 TABLETA 2 HORAS ANTES DEL PROCEDIMIENT Motrin IB 200 mg tablet Completed ? 07/03/20 17 Take 1 tablet every 6 hours by oral route. oxycodone 5 mg tablet Active ? Not availa ble TOME JUAN LUIS TABLETA POR V?A ORAL CADA CUATRO HORAS CUANDO SEA NECE SARIO Oyster Shell Calcium-Vitamin D3 500 mg-5 mcg (200 unit) tablet A ctive ? Not available TAKE 1 TABLET BY MOUTH ONCE A DAY Pain and Fever 325 mg tablet Active ? Not available TOME DOS TABLETAS POR V?A ORAL CADA SEIS HORAS CUANDO SEA NECES ARIO polyethylene glycol 3350 17 gram oral powder packet Active ? Not available TAKE 1 PACKET (17GM) DAILY senna Completed ? 12/25/2017 senna 8.6 mg tablet Active ? Not availabl e TOME DOS TABLETAS POR V?A ORAL TODOS LO S D? AL ACOSTARSE CUANDO SEA NECESARIO sulfamethoxazole 800 mg-trimethoprim 160 mg tablet Completed ? 12/25/2017 TOME JUAN LUIS TABLETA POR V?A ORAL CADA DOCE HORAS tizanidine 2 mg tablet Completed ? 7 TAKE 1 TABLET BY MOUTH EVERY 8 HOURS NEEDED tramadol 50 mg tablet Active ? Not availa ble TOME JUAN LUIS TABLETA POR VIA ORAL CADA SEIS HORAS CUANDO SEA NECESARIO PARA EL DOLOR triamcinolone acetonide 0.025 % topical cream Active ? Not available APPLY TO AFFECTED AREA TWICE A DAY vitamin A Active ? Not available vitamin A 10,000 unit capsule Active ? No t available TOME JUAN LUIS CAPSULA POR VIA ORAL TODOS LOS COBB WITH FOOD OR MILK Vitamin D3 25 mcg (1,000 unit) tablet Active ? Not available TAKE 1 TABLET EVERY DAY Voltaren 1 % topical gel Active ? Not efren ilable APPLY 4G TO THE AFFECTED AREA 3 TIMES A DAY Problems Name Status Onset Date Source ? Lumbosacral Spondylosis without Myelopathy Active 05/21 ? Displacement of Lumbar Intervertebral Disc without Myelopathy Ac tive 05/21/2017 ? Spinal Stenosis of Lumbar Region Active 05/21/2017 ? Lumbosacral Radiculitis Active 05/21/2017 ? Muscle Pain Active 05/21/2017 ? Procedures Date Name Performed by ? ? Other Information not avai lable Notes: Right leg vein stripping ? Other Information not avai lable Notes: Biopsy ? Caesarean Section Information not avai lable Notes: times 3 Results Lab Results None recorded. Past Encounters None recorded. Social History Tobacco Smoking Status Never Smoker Vaccine List None recorded. Plan of Care Reminders Provider Appointments None recorded. ? ? Lab None recorded. ? ? Referral None recorded. ? ? Procedures None recorded. ? ? Surgeries None recorded. ? ? Imaging None recorded. ? ? Vitals 12/25/2017 02:00PM PROCEDURE Height Blood Pressure 5 ft 4 in 122/88 mm[Hg] 12/03/2017 02:00PM RETURN Height Weight BMI Blood Pressure 5 ft 4 in 174 lbs 29.9 kg/m2 114/84 mm[Hg] 09/10/2017 11:00AM RETURN Height Blood Pressure 5 ft 4 in 116/72 mm[Hg] 07/17/2017 11:00AM PROCEDURE Height Blood Pressure 5 ft 4 in 117/76 mm[Hg] 07/03/2017 11:30AM RETURN Height Blood Pressure 5 ft 4 in 106/77 mm[Hg] 05/21/2017 01:00PM RETURN Height Blood Pressure 5 ft 4 in 03/27/2017 03:00PM PROCEDURE Height Blood Pressure 5 ft 4 in 121/73 mm[Hg] 03/08/2017 10:00AM NEW PATIENT VISIT Height Weight BMI Blood Pressure 5 ft 4 in 174 lbs 29.9 kg/m2 114/75 mm[Hg]
--- NOTE | 2022-08-12 14:32 | ED.GENADULT ---
HPI - General Adult General Chief complaint: General Medical Stated complaint: Hemorrhoid Time Seen by Provider: 08/12/22 13:50 Source: patient Mode of arrival: ambulatory History of Present Illness HPI narrative: 51-year-old female with a past medical history of anemia, celiac disease, anxiety/depression, GERD, presenting to the ED complaining painful hemorrhoid x months. Reports intermittent bleeding. Has been using OTC medications without relief. Denies abdominal pain, flank pain, dysuria/hematuria, lightheadedness Related Data Home Medications Medication Instructions Recorded Confirmed fluticasone propionate 50 1 spray intranasal DAILY 07/27/20 02/14/22 mcg/actuation nasal spray,suspension (Flonase Allergy Relief) Previous Rx's Medication Instructions Recorded ketoconazole 2 % shampoo 1 appl topical 2XW 30 days #120 mL 02/22/21 clotrimazole-betamethasone 1 1 appl topical BID PRN itching 7 03/30/21 %-0.05 % topical cream days #45 grams ibuprofen 600 mg tablet 600 mg PO Q8H PRN pain #21 tabs 10/18/21 cholecalciferol (vitamin D3) 50 50 mcg PO DAILY #90 caps 11/07/21 mcg (2,000 unit) capsule docusate sodium 100 mg capsule 100 mg PO BID #180 caps 05/15/22 sennosides 8.6 mg tablet (Natural 17.2 mg PO BID constipation #60 05/15/22 Senna Laxative) tabs escitalopram oxalate 10 mg tablet 10 mg PO DAILY 90 days #90 tabs 05/17/22 Proctosol HC 2.5 % topical cream 1 appl MI BID-QID PRN hemorrhoids 05/18/22 perineal applicator 30 days #28.35 grams (hydrocortisone) hydrocortisone 2.5 % topical cream 1 appl MI DAILY PRN hemorrhoids 08/12/22 with perineal applicator #30 grams lidocaine 5 % topical ointment 1 appl topical BID PRN skin 08/12/22 irritation #35.44 grams Allergies Allergy/AdvReac Type Severity Reaction Status Date / Time gluten [GLUTEN] Allergy Intermediate CELIAC Verified 08/12/22 11:37 DISEASE Penicillins [PENICILLINS] Allergy Intermediate AGITATION Verified 08/12/22 11:37 Review of Systems Review of Systems: Constitutional: No Fever, No Chills ENT/Mouth: No Ear Pain, No Nasal Congestion, No sore throat, No Rhinorrhea, No Swallowing Difficulty Cardiovascular: No Chest Pain, No SOB Respiratory: No Cough, No Sputum, No Wheezing Gastrointestinal: No Nausea, No Vomiting, No Diarrhea, No Constipation, No Abdominal pain Genitourinary: +rectal pain/hemmorrhoids, No Dysuria, No Urinary Frequency, No Hematuria, No Urinary Incontinence/retention Musculoskeletal: No joint pain, No Myalgias, No Joint Swelling Skin: No Skin Lesions, No rash Neuro: No Weakness, No Numbness, No Paresthesias Yes all other systems are reviewed and are negative Constitutional: Constitutional: Reports as per [facility] Past Medical History Attestation statement: The following information was validated with the patient. Medical History Adult celiac disease Anemia Anxiety and depression Blurry vision Chest pain Constipation by delayed colonic transit Depression GERD (gastroesophageal reflux disease) Herpes History of celiac disease Hx of chronic kidney disease Hx of constipation Hx of gastroesophageal reflux (GERD) Mild recurrent major depression PAC (premature atrial contraction) Physical exam Polyarthralgia Surgical History Hx of section Hx of varicose vein ligation and stripping Family History Family History Mother Hx of diabetes mellitus Hx of hypertensive heart disease Father Hx of diabetes mellitus Hx of hypertensive heart disease Paternal Uncle History of colon cancer Maternal Grandmother Cancer Daughter No problems noted. Sister No problems noted. Son No problems noted. Son No problems noted. Brother No problems noted. Social History Social History Household Members: None Housing: Apartment Alcohol intake: current Alcohol intake frequency: a few times a month Alcohol type: hard liquor Patient Tobacco Use Status: Former Tobacco user Tobacco use type: Cigarette e-Cigarette/Vaping Use: Never Used Second Hand Smoke Exposure: No Advance Directives: No service: No Current occupational status: employed Current occupational exposures/hazards: No Cognitive needs: No Hearing needs: No Vision needs: No Physical Exam ED Vital Signs: Vital Signs - 24 hr 08/12/22 11:37 Temperature 98.0 F Pulse Rate 73 Respiratory Rate 18 Blood Pressure 121/78 Pulse Oximetry 99 Oxygen Delivery Method Room Air BMI result Body Mass Index 29.5 Const General: cooperative, healthy appearing and no acute distress Orientation/consciousness: patient oriented x3 Limitations: no limitations HENMT Head: Yes normal to inspection and Yes atraumatic Ears: hearing grossly normal bilaterally General nose exam: Normal external nose present Face and sinus: Yes normal facial exam Eyes General: appearance normal, both eyes and all related structures EOM: EOMs intact bilaterally Neck Neck: Yes normal visual inspection and Yes no meningeal signs Resp Effort & Inspection: normal respiratory effort and no respiratory distress Cardio Rate: regular rate Heart sounds: S1 normal heart sound present and S2 normal heart sound present GI Inspection: Yes normal to inspection Palpation (GI): Soft to palpation, nontender, no guarding and not rigid Rectal Exam - Female: normal sphincter tone, Internal hemorrhoid(s) present (Prolapsed. No thrombosis or active bleeding) and No Fistula present (GI) General: Yes no CVA tenderness Back/Spine/Pelvis Back: no CVA tenderness Skin Rashes: no rashes Wounds: no wounds Neuro General: patient oriented x3, tone normal and no meningeal signs Gait exam (Neuro): Normal gait present Extrem General: Yes normal to inspection Medical Decision Making MDM Narrative Medical decision making narrative: 51-year-old female with a past medical history of anemia, celiac disease, anxiety/depression, GERD, presenting to the ED complaining painful hemorrhoid x months. On exam vital signs stable, NAD, nontoxic appearing, prolapsed internal hemorrhoid noted without evidence of thrombosis or bleeding. Low suspicion for GI bleed, no evidence of abscess. Rectal tone WNL Plan: Topical hydrocortisone, topical lidocaine, surgical follow-up Medical Records Medical records reviewed: Yes I reviewed the patient's medical records. Lab Data Lab results reviewed: Yes I reviewed the patient's lab results. Discharge Plan Discharge Clinical Impression: Prolapsed internal hemorrhoids Patient Disposition: Home, Self-Care Instructions: Hemorrhoids (ED) Additional Instructions: You have a prolapsed internal hemorrhoid. Topical hydrocortisone cream is a steroid which will help shrink hemorrhoid, lidocaine is a numbing medication, he can mixed in a 50 / 50 mixture these to appointments and apply to your rectum. Place of close follow-up with Colorectal You should be practicing Sitz baths at home If you develop bleeding, persistent/unremitting pain, abdominal pain or fever return to the ED Tienes lucinda hemorroide interna prolapsada. La crema de hidrocortisona t?pica es un esteroide que ayudar? a reducir las hemorroides, la lidoca?na es un medicamento anest?sico, se puede mezclar en lucinda mezcla 50/50 de estos en las citas y aplicar en el recto. Lugar de seguimiento cercano con Colorrectal Deber?as estar practicando ba?os de asiento en casa. Si presenta sangrado, dolor persistente/incesante, dolor abdominal o fiebre, regrese al servicio de urgencias. Prescriptions: New hydrocortisone 2.5 % cream with perineal applicator 1 appl MI DAILY PRN (Reason: hemorrhoids) Qty: 30 0RF lidocaine 5 % ointment 1 appl topical BID PRN (Reason: skin irritation) Qty: 35.44 0RF No Action escitalopram oxalate 10 mg tablet 10 mg PO DAILY 90 Days Qty: 90 1RF hydrocortisone [Proctosol HC] 2.5 % cream with perineal applicator 1 appl MI BID-QID PRN (Reason: hemorrhoids) 30 Days Qty: 28.35 0RF ketoconazole 2 % shampoo 1 appl topical 2XW 30 Days Qty: 120 6RF ibuprofen 600 mg tablet 600 mg PO Q8H PRN (Reason: pain) Qty: 21 0RF clotrimazole-betamethasone 1-0.05 % cream 1 appl topical BID PRN (Reason: itching) 7 Days Qty: 45 0RF fluticasone propionate [Flonase Allergy Relief] 50 mcg/actuation spray,suspension 1 spray intranasal DAILY Rx Instructions: administer into each nostril docusate sodium 100 mg capsule 100 mg PO BID Qty: 180 3RF sennosides [Natural Senna Laxative] 8.6 mg tablet 17.2 mg PO BID Qty: 60 3RF cholecalciferol (vitamin D3) 50 mcg (2,000 unit) capsule 50 mcg PO DAILY Qty: 90 3RF [place] [facility] [facility] [place] Group] Sisi Perez MD [Primary Care Provider] - 1 week Print Language: Cameroonian
== END 2022-08-12 14:52 | disposition home or self-care (01) ==
PROVIDERS: Emergency Provider Emergency Medicine; PCP Internal Medicine
DX: K64.8 Other hemorrhoids (principal); K62.89 Other specified diseases of anus and rectum
CPT/HCPCS: 99283

== ENCOUNTER → 2022-08-17 13:50 | Outpatient (BNVA) | payer OTHER, SELFPAY | PROVIDERS: PCP Internal Medicine; Visit Provider Surgery | DX: K64.8 Other hemorrhoids (principal); K64.4 Residual hemorrhoidal skin tags | CPT/HCPCS: 46600; 99202 ==

== ENCOUNTER 2022-08-24 07:55 | Outpatient (REF) | payer OTHER, SELFPAY ==
[2022-08-24 08:42] LABS: Alanine Aminotransferase 18 U/L (0-31); Alkaline Phosphatase 75 U/L (39-117); Anion Gap 14 (12-20); Aspartate Amino Transferase 23 U/L (5-31); Bilirubin Total 0.3 mg/dL (0.0-1.0); Blood Urea Nitrogen 9 mg/dL (9-16); Calcium 9.2 mg/dL (8.4-10.2); Carbon Dioxide 25 mmol/L (22-29); Chloride 105 mmol/L (96-108); Cholesterol 203 mg/dL; Estimated Glomerular Filt Rate > 60; Glucose Fasting 93 mg/dL (60-99); HDL Cholesterol 42 mg/dL; LDL Cholesterol Calculated 145 mg/dl; Potassium 4.2 mmol/L (3.3-5.1); Sodium 140 mmol/L (135-145); Total Protein 6.7 g/dL (6.5-8.0); Triglycerides 84 mg/dL
[2022-08-24 09:05] LABS: TSH reflex Free T4 1.53 uIU/mL (0.32-4.0); Vitamin D 25-OH Total 26.9 ng/mL (>30)
[2022-08-24 10:22] LABS: Folate 5.5 ng/mL (> or = 4.0); Vitamin B12 305 pg/mL (200-900)
== END 2022-08-24 07:56 | disposition home or self-care (01) ==
LOC: HO.LAB 07:55
PROVIDERS: PCP Internal Medicine; Visit Provider Nurse Practitioner Family
DX: Z87.19 Personal history of other diseases of the digestive system (principal)
CPT/HCPCS: 36415; 80053; 80061; 82306; 82607; 82746; 84443

== ENCOUNTER 2022-09-01 18:28 | Emergency (ER) | payer OTHER, SELFPAY ==
--- NOTE | ~2022-09-01 | CT_ITS ---
EXAMINATION: CT HEAD WITHOUT CONTRAST CLINICAL INFORMATION: Chronic left-sided facial droop COMPARISON: 11/13/2021 TECHNIQUE: Contiguous axial imaging was performed from the skull base to vertex without intravenous administration of contrast. This CT examination was performed using dose optimization techniques as appropriate, variously including the following: *Automated exposure control *Adjustment of mA and/or kV according to patient size (this includes techniques or standardized protocols for targeted exams where dose is matched to indication/reason for exam; i.e. extremities or head) *Use of iterative reconstruction technique DLP: 692 mGy-cm FINDINGS: There is no evidence of acute intracranial hemorrhage or territorial infarction. No abnormal mass effect or midline shift is seen. Betts to white matter differentiation is well preserved. No extra-axial fluid collections are identified. No significant volume loss. No hydrocephalus. There is no abnormal attenuation within the brain parenchyma. The osseous structures and soft tissues are normal. The mastoid air cells and visualized portions of the paranasal sinuses are well aerated. CT/CT head/brain wo IV con IMPRESSION: No acute intracranial pathology. Recommend MRI for further evaluation given the chronic symptoms.
[2022-09-01 18:33] VITALS: BP 104/78; PULSE 86; RESP 18; TEMP 36.6; O2SAT 100; BMI 29.3
[2022-09-01 18:51] LABS: MANUAL DIFF FLAG NO
[2022-09-01 18:55] LABS: Basophils Absolute Auto 0.1 X10*3/uL (0.0-0.2); Basophils Percent Auto 0.7 % (0-2); Eosinophils Absolute Auto 0.1 X10*3/uL (0.0-0.4); Eosinophils Percent Auto 1.1 % (0-4); Hematocrit 35.2 % (37.0-47.0); Hemoglobin 11.3 g/dl (12.0-16.0); Imm Gran Abs Auto 0.02 X10*3/uL (0.00-0.03); Imm Gran Pct Auto 0.2 % (0.0-0.4); Lymphocytes Absolute Auto 3.3 X10*3/uL (1.2-4.9); Lymphocytes Percent Auto 38.1 % (20-40); Mean Corpuscular HGB Conc 32.1 g/dl (31.0-35.0); Mean Corpuscular Hemoglobin 27.7 pg (27.0-33.0); Mean Corpuscular Volume 86.3 fL (80.0-98.0); Mean Platelet Volume 9.4 fL (9.4-12.3); Monocytes Absolute Auto 0.8 X10*3/uL (0.1-1.2); Monocytes Percent Auto 9.1 % (2-11); Neutrophils Absolute Auto 4.3 x10*3/uL (2.0-8.3); Neutrophils Percent Auto 50.8 % (45-73); Platelet Count 375 X10*3/uL (160-400); Red Blood Count 4.08 X10*6/uL (4.20-5.50); Red Cell Distribution Width 17.4 % (11.0-16.0); White Blood Count 8.5 X10*3/uL (4.8-10.8)
[2022-09-01 19:22] LABS: Alanine Aminotransferase 19 U/L (0-31); Alkaline Phosphatase 79 U/L (39-117); Anion Gap 15 (12-20); Aspartate Amino Transferase 24 U/L (5-31); Bilirubin Total 0.3 mg/dL (0.0-1.0); Blood Urea Nitrogen 8 mg/dL (9-16); C Reactive Protein 0.24 mg/dL (< or = 0.50); Calcium 8.8 mg/dL (8.4-10.2); Carbon Dioxide 23 mmol/L (22-29); Chloride 104 mmol/L (96-108); Creatinine Clr Calc Pharmacy 88.6; Estimated Glomerular Filt Rate > 60; Glucose Random 88 mg/dL (60-115); Potassium 3.6 mmol/L (3.3-5.1); Sodium 138 mmol/L (135-145); Total Protein 6.7 g/dL (6.5-8.0)
[2022-09-01 19:29] LABS: Erythrocyte Sedimentation Rate 12 MM/HR (0-20)
--- NOTE | 2022-09-01 19:35 | ED_ITS ---
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 Patient denies any difficulty swallowing, shortness of breath or impaired speech. She states that she has been to see the manager of regulatory affairs as well as her primary care provider both whom have recommended eyedrops, but patient states that these do not help. Patient states that 1st thing in the morning she is ?just fine? but then by later morning she begins to experience her eyelid drooping. She denies any fever, chills, headaches, dizziness. <Chrissy Guadalupe MD - Last Filed: 09/01/22 22:57> Related Data Home Medications: Home Medications Medication Instructions Recorded Confirmed fluticasone propionate 50 1 spray intranasal DAILY 07/27/20 08/22/22 mcg/actuation nasal spray,suspension (Flonase Allergy Relief) Previous Rx's Medication Instructions Recorded ketoconazole 2 % shampoo 1 appl topical 2XW 30 days #120 mL 02/22/21 clotrimazole-betamethasone 1 1 appl topical BID PRN itching 7 03/30/21 %-0.05 % topical cream days #45 grams docusate sodium 100 mg capsule 100 mg PO BID #180 caps 05/15/22 Proctosol HC 2.5 % topical cream 1 appl MO BID-QID PRN hemorrhoids 05/18/22 perineal applicator 30 days #28.35 grams (hydrocortisone) hydrocortisone 2.5 % topical cream 1 appl MO DAILY PRN hemorrhoids 08/12/22 with perineal applicator #30 grams lidocaine 5 % topical ointment 1 appl topical BID PRN skin 08/12/22 irritation #35.44 grams hydrocortisone 1 % topical cream 1 appl topical TID PRN skin 08/18/22 (Anti-Itch (hydrocortisone)) irritation 2 weeks #28.4 grams escitalopram oxalate 10 mg tablet 10 mg PO DAILY 90 days #90 tabs 08/22/22 hydroxyzine HCl 25 mg tablet 25 mg PO BEDTIME PRN insomnia #14 08/22/22 tabs sennosides 8.6 mg tablet (Natural 17.2 mg PO BID constipation #60 08/22/22 Senna Laxative) tabs cholecalciferol (vitamin D3) 50 50 mcg PO DAILY #90 caps 08/29/22 mcg (2,000 unit) capsule <ELSA Montes - Last Filed: 09/01/22 19:38> Allergies/Adverse Reactions: Allergies Allergy/AdvReac Type Severity Reaction Status Date / Time gluten [GLUTEN] Allergy Intermediate CELIAC Verified 08/22/22 15:30 DISEASE Penicillins [PENICILLINS] Allergy Intermediate AGITATION Verified 08/22/22 15:30 <ELSA Montes - Last Filed: 09/01/22 19:38> Review of Systems Review of Systems: Pertinent positives and negatives as stated HPI 10 point review of systems otherwise negative <Chrissy Guadalupe MD - Last Filed: 09/01/22 22:57> FORMERLY [facility] Past Medical History Source: nursing notes reviewed <Chrissy Guadalupe MD - Last Filed: 09/01/22 22:57> Medical History: Medical History Adult celiac disease Anemia Anxiety and depression Blurry vision Chest pain Constipation by delayed colonic transit Depression GERD (gastroesophageal reflux disease) Herpes History of celiac disease Hx of chronic kidney disease Hx of constipation Hx of gastroesophageal reflux (GERD) Internal and external prolapsed hemorrhoids Mild recurrent major depression PAC (premature atrial contraction) Physical exam Polyarthralgia <ELSA Montes - Last Filed: 09/01/22 19:38> Surgical History: Surgical History Hx of section Hx of varicose vein ligation and stripping <ELSA Montes - Last Filed: 09/01/22 19:38> Family History Family History: Family History Mother Hx of diabetes mellitus Hx of hypertensive heart disease Father Hx of diabetes mellitus Hx of hypertensive heart disease Paternal Uncle History of colon cancer Maternal Grandmother Cancer Daughter No problems noted. Sister No problems noted. Son No problems noted. Son No problems noted. Brother No problems noted. <ELSA Montes - Last Filed: 09/01/22 19:38> Social History Social History: Social History Household Members: None Housing: Apartment Alcohol intake: current Alcohol intake frequency: a few times a month Alcohol type: hard liquor Patient Tobacco Use Status: Former Tobacco user Tobacco use type: Cigarette e-Cigarette/Vaping Use: Never Used Second Hand Smoke Exposure: No Advance Directives: No Advance Directives Information Provided: No service: No Current occupational status: employed Current occupational exposures/hazards: No Cognitive needs: No Hearing needs: No Vision needs: No <ELSA Montes - Last Filed: 09/01/22 19:38> Physical Exam Vital Signs: Vital Signs: Last Vital Signs Temp 97.8 F 09/01/22 21:37 Pulse 73 09/01/22 21:37 Resp 16 09/01/22 21:37 BP 112/67 09/01/22 21:37 Pulse Ox 98 09/01/22 21:37 O2 Del Method 09/01/22 21:37 BMI result Body Mass Index 29.3 <ELSA Montes - Last Filed: 09/01/22 19:38> Vital Signs: Last Vital Signs Temp 97.8 F 09/01/22 21:37 Pulse 73 09/01/22 21:37 Resp 16 09/01/22 21:37 BP 112/67 09/01/22 21:37 Pulse Ox 98 09/01/22 21:37 O2 Del Method 09/01/22 21:37 BMI result Body Mass Index 29.3 VITAL SIGNS: Reviewed. GENERAL: Well developed, well nourished, in no acute distress. HEAD: Normocephalic/atraumatic EYES: PERRLA, EOMI, there is noted left eyelid droop, otherwise no evidence of gaze palsy or nystagmus EARS: Ext canals without abnormality, TMs non-bulging and non-erythematous NOSE: Nares patent bilateral OROPHARYNX: no oral lesions noted, posterior pharynx clear LUNGS: Normal breath sounds. No adventitious sounds or accessory muscle use. SpO2<98> CARDIOVASCULAR: Regular rate and rhythm without noted murmurs ABDOMEN: Soft, non-tender, non-distended with bowel sounds. MUSCULOSKELETAL: No tenderness, deformities, or effusions noted on gross inspection. EXTREMITIES: No cyanosis, clubbing or edema. SKIN: Inspection of the skin reveals no rashes NEUROLOGIC: Alert and oriented x 4. Strength and sensation to light touch were grossly intact x 4. <Chrissy Guadalupe MD - Last Filed: 09/01/22 22:57> Course Course Course Narrative: RME performed by Sarah Morin PA-C. Patient states that she has had this issue worked up multiple times at [facility] and they keep telling her it is an allergic reaction. Patient states that she has left sided facial droop that radiates over to her right side, back to the left, and then goes away completely. Patient states that the side that's affected is usually itchy as w ell. Labs + head CT ordered. Patient placed back in the waiting room pending room availability and results of work up. Patient's strength was equal bilaterally. <ELSA Montes - Last Filed: 09/01/22 19:38> RME performed by Sarah Morin PA-C. Patient states that she has had this issue worked up multiple times at [facility] and they keep telling her it is an allergic reaction. Patient states that she has left sided facial droop that radiates over to her right side, back to the left, and then goes away completely. Patient states that the side that's affected is usually itchy as well. Labs + head CT ordered. Patient placed back in the waiting room pending room availability and results of work up. Patient's strength was equal bilaterally. Review of all investigations along with patient's history, there is no elevation of inflammatory markers, no evidence to suggest intra cranial pathology as there is no gaze palsy, no evidence to suggest Perez's palsy, however there is a possibility that this is a myasthenia gravis presentation given the timing of patient's complaint of left eyelid symptoms and fortunately at this time she is not experiencing any difficulty with blurred vision/shortness of breath or difficulty swallowing. Patient has had no loss of vision and at this time will send off lab testing for anti acetylcholine receptor antibody and provided her with a referral to follow-up with Ophthalmology, Dr Peralta as well as Neurology. TSH is within normal limits and patient has no other symptoms to s uggest thyroid dysfunction at this time. <Chrissy Guadalupe MD - Last Filed: 09/01/22 22:57> MDM - Neuro Symptoms/Deficit Lab Data Result diagrams: : 09/01/22 18:47 09/01/22 18:47 <ELSA Montes - Last Filed: 09/01/22 19:38> Labs: Lab Results 09/01/22 09/01/22 09/01/22 Range/Units 18:47 18:47 18:48 WBC 8.5 (4.8-10.8) X10*3/uL RBC 4.08 L (4.20-5.50) X10*6/uL Hgb 11.3 L (12.0-16.0) g/dl Hct 35.2 L (37.0-47.0) % MCV 86.3 (80.0-98.0) fL MCH 27.7 (27.0-33.0) pg MCHC 32.1 (31.0-35.0) g/dl RDW 17.4 H (11.0-16.0) % Plt Count 375 (160-400) X10*3/uL MPV 9.4 (9.4-12.3) fL Immature Gran % (Auto) 0.2 (0.0-0.4) % Neut % (Auto) 50.8 (45-73) % Lymph % (Auto) 38.1 (20-40) % Cross % (Auto) 9.1 (2-11) % Eos % (Auto) 1.1 (0-4) % Baso % (Auto) 0.7 (0-2) % Lymph # (Auto) 3.3 (1.2-4.9) X10*3/uL Cross # (Auto) 0.8 (0.1-1.2) X10*3/uL Eos # (Auto) 0.1 (0.0-0.4) X10*3/uL Baso # (Auto) 0.1 (0.0-0.2) X10*3/uL Abs Immat Gran (auto) 0.02 (0.00-0.03) X10*3/uL Absolute Neuts (auto) 4.3 (2.0-8.3) x10*3/uL Absolute Nucleated RBC 0.000 (0.0-0.012) X10*3/uL Nucleated RBC % (auto) 0.0 (0.0-0.2) /100WBC ESR 12 (0-20) MM/HR Sodium 138 (135-145) mmol/L Potassium 3.6 (3.3-5.1) mmol/L Chloride 104 (96-108) mmol/L Carbon Dioxide 23 (22-29) mmol/L Anion Gap 15 (12-20) BUN 8 L (9-16) mg/dL Creatinine 0.74 (0.5-1.4) mg/dL Estim Creat Clear Calc 88.6 Estimated GFR > 60 POC Glucose (60-115) mg/dL Random Glucose 88 (60-115) mg/dL Calcium 8.8 (8.4-10.2) mg/dL Magnesium 2.0 (1.6-2.6) mg/dL Total Bilirubin 0.3 (0.0-1.0) mg/dL AST 24 (5-31) U/L ALT 19 (0-31) U/L Alkaline Phosphatase 79 (39-117) U/L C-Reactive Protein 0.24 (< or = 0.50) mg/dL Total Protein 6.7 (6.5-8.0) g/dL Albumin 4.0 (3.5-5.0) g/dL 09/01/22 Range/Units 20:32 WBC (4.8-10.8) X10*3/uL RBC (4.20-5.50) X10*6/uL Hgb (12.0-16.0) g/dl Hct (37.0-47.0) % MCV (80.0-98.0) fL MCH (27.0-33.0) pg MCHC (31.0-35.0) g/dl RDW (11.0-16.0) % Plt Count (160-400) X10*3/uL MPV (9.4-12.3) fL Immature Gran % (Auto) (0.0-0.4) % Neut % (Auto) (45-73) % Lymph % (Auto) (20-40) % Cross % (Auto) (2-11) % Eos % (Auto) (0-4) % Baso % (Auto) (0-2) % Lymph # (Auto) (1.2-4.9) X10*3/uL Cross # (Auto) (0.1-1.2) X10*3/uL Eos # (Auto) (0.0-0.4) X10*3/uL Baso # (Auto) (0.0-0.2) X10*3/uL Abs Immat Gran (auto) (0.00-0.03) X10*3/uL Absolute Neuts (auto) (2.0-8.3) x10*3/uL Absolute Nucleated RBC (0.0-0.012) X10*3/uL Nucleated RBC % (auto) (0.0-0.2) /100WBC ESR (0-20) MM/HR Sodium (135-145) mmol/L Potassium (3.3-5.1) mmol/L Chloride (96-108) mmol/L Carbon Dioxide (22-29) mmol/L Anion Gap (12-20) BUN (9-16) mg/dL Creatinine (0.5-1.4) mg/dL Estim Creat Clear Calc Estimated GFR POC Glucose 78 (60-115) mg/dL Random Glucose (60-115) mg/dL Calcium (8.4-10.2) mg/dL Magnesium (1.6-2.6) mg/dL Total Bilirubin (0.0-1.0) mg/dL AST (5-31) U/L ALT (0-31) U/L Alkaline Phosphatase (39-117) U/L C-Reactive Protein (< or = 0.50) mg/dL Total Protein (6.5-8.0) g/dL Albumin (3.5-5.0) g/dL <ELSA Montes - Last Filed: 09/01/22 19:38> Lab Results 09/01/22 09/01/22 09/01/22 Range/Units 18:47 18:47 18:48 WBC 8.5 (4.8-10.8) X10*3/uL RBC 4.08 L (4.20-5.50) X10*6/uL Hgb 11.3 L (12.0-16.0) g/dl Hct 35.2 L (37.0-47.0) % MCV 86.3 (80.0-98.0) fL MCH 27.7 (27.0-33.0) pg MCHC 32.1 (31.0-35.0) g/dl RDW 17.4 H (11.0-16.0) % Plt Count 375 (160-400) X10*3/uL MPV 9.4 (9.4-12.3) fL Immature Gran % (Auto) 0.2 (0.0-0.4) % Neut % (Auto) 50.8 (45-73) % Lymph % (Auto) 38.1 (20-40) % Cross % (Auto) 9.1 (2-11) % Eos % (Auto) 1.1 (0-4) % Baso % (Auto) 0.7 (0-2) % Lymph # (Auto) 3.3 (1.2-4.9) X10*3/uL Cross # (Auto) 0.8 (0.1-1.2) X10*3/uL Eos # (Auto) 0.1 (0.0-0.4) X10*3/uL Baso # (Auto) 0.1 (0.0-0.2) X10*3/uL Abs Immat Gran (auto) 0.02 (0.00-0.03) X10*3/uL Absolute Neuts (auto) 4.3 (2.0-8.3) x10*3/uL Absolute Nucleated RBC 0.000 (0.0-0.012) X10*3/uL Nucleated RBC % (auto) 0.0 (0.0-0.2) /100WBC ESR 12 (0-20) MM/HR Sodium 138 (135-145) mmol/L Potassium 3.6 (3.3-5.1) mmol/L Chloride 104 (96-108) mmol/L Carbon Dioxide 23 (22-29) mmol/L Anion Gap 15 (12-20) BUN 8 L (9-16) mg/dL Creatinine 0.74 (0.5-1.4) mg/dL Estim Creat Clear Calc 88.6 Estimated GFR > 60 POC Glucose (60-115) mg/dL Random Glucose 88 (60-115) mg/dL Calcium 8.8 (8.4-10.2) mg/dL Magnesium 2.0 (1.6-2.6) mg/dL Total Bilirubin 0.3 (0.0-1.0) mg/dL AST 24 (5-31) U/L ALT 19 (0-31) U/L Alkaline Phosphatase 79 (39-117) U/L C-Reactive Protein 0.24 (< or = 0.50) mg/dL Total Protein 6.7 (6.5-8.0) g/dL Albumin 4.0 (3.5-5.0) g/dL 09/01/22 Range/Units 20:32 WBC (4.8-10.8) X10*3/uL RBC (4.20-5.50) X10*6/uL Hgb (12.0-16.0) g/dl Hct (37.0-47.0) % MCV (80.0-98.0) fL MCH (27.0-33.0) pg MCHC (31.0-35.0) g/dl RDW (11.0-16.0) % Plt Count (160-400) X10*3/uL MPV (9.4-12.3) fL Immature Gran % (Auto) (0.0-0.4) % Neut % (Auto) (45-73) % Lymph % (Auto) (20-40) % Cross % (Auto) (2-11) % Eos % (Auto) (0-4) % Baso % (Auto) (0-2) % Lymph # (Auto) (1.2-4.9) X10*3/uL Cross # (Auto) (0.1-1.2) X10*3/uL Eos # (Auto) (0.0-0.4) X10*3/uL Baso # (Auto) (0.0-0.2) X10*3/uL Abs Immat Gran (auto) (0.00-0.03) X10*3/uL Absolute Neuts (auto) (2.0-8.3) x10*3/uL Absolute Nucleated RBC (0.0-0.012) X10*3/uL Nucleated RBC % (auto) (0.0-0.2) /100WBC ESR (0-20) MM/HR Sodium (135-145) mmol/L Potassium (3.3-5.1) mmol/L Chloride (96-108) mmol/L Carbon Dioxide (22-29) mmol/L Anion Gap (12-20) BUN (9-16) mg/dL Creatinine (0.5-1.4) mg/dL Estim Creat Clear Calc Estimated GFR POC Glucose 78 (60-115) mg/dL Random Glucose (60-115) mg/dL Calcium (8.4-10.2) mg/dL Magnesium (1.6-2.6) mg/dL Total Bilirubin (0.0-1.0) mg/dL AST (5-31) U/L ALT (0-31) U/L Alkaline Phosphatase (39-117) U/L C-Reactive Protein (< or = 0.50) mg/dL Total Protein (6.5-8.0) g/dL Albumin (3.5-5.0) g/dL <Chrissy Guadalupe MD - Last Filed: 09/01/22 22:57> Discharge Plan Discharge Clinical Impression: Eyelid abnormality <ELSA Montes - Last Filed: 09/01/22 19:38> Patient Disposition: Home, Self-Care <ELSA Montes - Last Filed: 09/01/22 19:38> Instructions: Myasthenia Gravis (ED) <ELSA Montes - Last Filed: 09/01/22 19:38> Additional Instructions: 1. Reanudar todos los medicamentos caseros seg?n lo prescrito. 2. Se le casanova proporcionado lucinda derivaci?n para seguimiento con oftalmolog?a y neurolog?a. Por favor llame a estas oficinas el lunes por la ma?jessica. No le recomiendo que conduzca en serena momento. Regrese a la perla de emergencias si los s?ntomas empeoran, josi dificultad para hablar, dificultad para tragar. <ELSA Montes - Last Filed: 09/01/22 19:38> Prescriptions: No Action hydrocortisone [Proctosol HC] 2.5 % cream with perineal applicator 1 appl MO BID-QID PRN (Reason: hemorrhoids) 30 Days Qty: 28.35 0RF hydrocortisone [Anti-Itch (HC)] 1 % cream 1 appl topical TID PRN (Reason: skin irritation) 14 Days Qty: 28.4 1RF cholecalciferol (vitamin D3) 50 mcg (2,000 unit) capsule 50 mcg PO DAILY Qty: 90 3RF hydrocortisone 2.5 % cream with perineal applicator 1 appl MO DAILY PRN (Reason: hemorrhoids) Qty: 30 0RF lidocaine 5 % ointment 1 appl topical BID PRN (Reason: skin irritation) Qty: 35.44 0RF ketoconazole 2 % shampoo 1 appl topical 2XW 30 Days Qty: 120 6RF sennosides [Natural Senna Laxative] 8.6 mg tablet 17.2 mg PO BID Qty: 60 3RF escitalopram oxalate 10 mg tablet 10 mg PO DAILY 90 Days Qty: 90 1RF hydroxyzine HCl 25 mg tablet 25 mg PO BEDTIME PRN (Reason: insomnia) Qty: 14 0RF clotrimazole-betamethasone 1-0.05 % cream 1 appl topical BID PRN (Reason: itching) 7 Days Qty: 45 0RF fluticasone propionate [Flonase Allergy Relief] 50 mcg/actuation spray,suspension 1 spray intranasal DAILY Rx Instructions: administer into each nostril docusate sodium 100 mg capsule 100 mg PO BID Qty: 180 3RF <ELSA Montes - Last Filed: 09/01/22 19:38> Referrals: Yonny Rodriguez MD [Primary Care Provider] - Saloni Parker MD [Physician] - (52-year-old female with possible onset of myasthenia gravis symptoms, anti acetylcholine receptor antibody sent, NO resp symptoms/dbl vision/difficulty swallowing) Oleg Peralta [Physician] - (52-year-old female with possible onset of myasthenia gravis symptoms, anti acetylcholine receptor antibody sent, NO resp symptoms/dbl vision/difficulty swallowing) <ELSA Montes - Last Filed: 09/01/22 19:38> Stand Alone Forms: Work/School Release <ELSA Montes - Last Filed: 09/01/22 19:38> Print Language: Azeri <ELSA Montes - Last Filed: 09/01/22 19:38>
[2022-09-01 20:33] VITALS: BP 121/75; PULSE 69; RESP 16; TEMP 37.1; O2SAT 99
[2022-09-01 20:41] LABS: Glucose, Whole Blood 78 mg/dL (60-115)
--- NOTE | 2022-09-01 21:20 | PC.NURSE ---
pt neuro alert and oriented x3, talking in full sentences, co of headache 10/10. pt moa equally. pt has left facial eye droop with very very slight droop in left side of smile.
[2022-09-01 21:37] VITALS: BP 112/67; PULSE 73; RESP 16; TEMP 36.6; O2SAT 98
[2022-09-01 22:53] LABS: Thyroid Stimulating Hormone 4.61 uIU/mL (0.32-4.0)
[2022-09-01 23:25] VITALS: BP 107/68; PULSE 64; RESP 16; TEMP 36.8; O2SAT 97
--- NOTE | 2022-09-04 07:30 | ECG_ITS ---
Test Reason : STROKE SYMPTOM Blood Pressure : / mmHG Vent. Rate : 070 BPM Atrial Rate : 070 BPM P-R Int : 156 ms QRS Dur : 072 ms QT Int : 388 ms P-R-T Axes : 013 -02 -25 degrees QTc Int : 419 ms Normal sinus rhythm Low voltage QRS Nonspecific T wave abnormality Abnormal ECG When compared with ECG of 19-NOV-2020 10:33, Premature atrial complexes are no longer Present Referred By: Chrissy Guadalupe Electronically Signed By:TALIA BAUER MD
[2022-09-09 18:06] LABS: Acetylcholine Receptor Binding 30.35 nmol/L
== END 2022-09-01 23:34 | disposition home or self-care (01) ==
PROVIDERS: Physician Assistant Medical; Emergency Provider Student in an Organized Health Care Education/Training Program; PCP Internal Medicine
DX: R29.810 Facial weakness (principal); H57.12 Ocular pain, left eye; R51.9 Headache, unspecified; Z87.891 Personal history of nicotine dependence; Z79.899 Other long term (current) drug therapy
CPT/HCPCS: 36415; 70450; 80053; 82947; 83519; 83735; 84443; 85025; 85652; 86140; 93005; 99284

== ENCOUNTER 2022-09-29 15:56 | Outpatient (REF) | payer OTHER, SELFPAY ==
--- NOTE | ~2022-09-29 | MM_ITS ---
EXAMINATION: MM SCREENING DIGITAL BREAST TOMOSYNTHESIS, BILATERAL CLINICAL INFORMATION: Screening. Asymptomatic. The lifetime risk of breast cancer based on the Tyrer-Cuzick Model is 9%. COMPARISON: Mammography: 09/27/2021, 09/11/2020, 09/06/2019 TECHNIQUE: Digital breast tomosynthesis is performed in both the craniocaudal and mediolateral oblique views along with computer-aided detection (CAD). Synthesized 2D images are generated from the tomosynthesis. FINDINGS: There are scattered areas of fibroglandular density (ACR BI-RADS breast composition Category b). There are no significant masses, abnormal calcifications, or other abnormalities. Parenchymal pattern is similar to prior studies. There is no developing density or architectural abnormality. The axilla and skin contours are unremarkable. No significant changes. MM/MM tomosynthesis screening BI IMPRESSION: No mammographic evidence of malignancy. ASSESSMENT: BI-RADS 1: Negative RECOMMENDATION: Routine annual mammography screening. This patient's information was entered into a reminder system with a target due date for their next mammogram.
== END 2022-09-29 15:57 | disposition home or self-care (01) ==
LOC: HO.MAMMO 15:56
PROVIDERS: PCP Internal Medicine; Visit Provider Internal Medicine
DX: Z12.31 Encounter for screening mammogram for malignant neoplasm of breast (principal)
CPT/HCPCS: 77063; 77067

== ENCOUNTER 2022-11-14 14:09 | Emergency (ER) | payer OTHER, SELFPAY ==
[2022-11-14 15:11] VITALS: BP 107/61; PULSE 69; RESP 16; TEMP 36.3; O2SAT 98; BMI 25.7
--- NOTE | 2022-11-14 15:13 | ED_ITS ---
HPI - Back Pain/Injury General Chief Complaint: Back Pain/Injury Stated Complaint: Upper back pain Time Seen by Provider: 11/14/22 15:13 Source: patient Mode of arrival: ambulatory Limitations: no limitations History of Present Illness HPI Narrative: 52-year-old female with a history of chronic back pain, depression, celiac, GERD, depression, palpitations who presents to the ER for evaluation of upper back pain for the last 2 months. 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 She feels like the muscles in her upper back are hard as a rock. She has been taking Tylenol with minimal relief. She reports the pain is worse with movement and deep breaths. She tried to call her PCP today but was 1 able to make an appointment. She came here for further evaluation as she did not feel like she did go to work today. She denies any shortness of breath or chest pain. No injuries. MD elicited complaint: back pain Pertinent past history: prior back pain Onset (ago): month(s) (2) Timing: progressively worsening Severity: severe Similar Symptoms Previously: Yes Quality: aching and spasming Radiation: none Exacerbating factors: movement and deep breaths Relieving factors: immobilization and supine Context: unknown Associated symptoms: denies other symptoms Treatments prior to arrival: acetaminophen Related Data Home Medications Medication Instructions Recorded Confirmed fluticasone propionate 50 1 spray intranasal DAILY 07/27/20 08/22/22 mcg/actuation nasal spray,suspension (Flonase Allergy Relief) Previous Rx's Medication Instructions Recorded ketoconazole 2 % shampoo 1 appl topical 2XW 30 days #120 mL 02/22/21 clotrimazole-betamethasone 1 1 appl topical BID PRN itching 7 03/30/21 %-0.05 % topical cream days #45 grams docusate sodium 100 mg capsule 100 mg PO BID #180 caps 05/15/22 Proctosol HC 2.5 % topical cream 1 appl AL BID-QID PRN hemorrhoids 05/18/22 perineal applicator 30 days #28.35 grams (hydrocortisone) hydrocortisone 2.5 % topical cream 1 appl AL DAILY PRN hemorrhoids 08/12/22 with perineal applicator #30 grams lidocaine 5 % topical ointment 1 appl topical BID PRN skin 08/12/22 irritation #35.44 grams hydrocortisone 1 % topical cream 1 appl topical TID PRN skin 08/18/22 (Anti-Itch (hydrocortisone)) irritation 2 weeks #28.4 grams escitalopram oxalate 10 mg tablet 10 mg PO DAILY 90 days #90 tabs 08/22/22 hydroxyzine HCl 25 mg tablet 25 mg PO BEDTIME PRN insomnia #14 08/22/22 tabs sennosides 8.6 mg tablet (Natural 17.2 mg PO BID constipation #60 08/22/22 Senna Laxative) tabs cholecalciferol (vitamin D3) 50 50 mcg PO DAILY #90 caps 08/29/22 mcg (2,000 unit) capsule cromolyn 4 % eye drops 1 drp ophthalmic (eye) QID 5 days 09/11/22 #10 mL cyclobenzaprine 10 mg tablet 10 mg PO TID PRN muscle spasm #14 11/14/22 tabs ibuprofen 600 mg tablet 600 mg PO Q8H PRN pain #14 tabs 11/14/22 lidocaine 5 % topical patch 1 patch topical DAILY #15 ea 11/14/22 Allergies Allergy/AdvReac Type Severity Reaction Status Date / Time gluten [GLUTEN] Allergy Intermediate CELIAC Verified 08/22/22 15:30 DISEASE Penicillins [PENICILLINS] Allergy Intermediate AGITATION Verified 08/22/22 15:30 Review of Systems Review of Systems: Yes all other systems are reviewed and are negative PMFSH Past Medical History Medical History Adult celiac disease Anemia Anxiety and depression Blurry vision Chest pain Constipation by delayed colonic transit Depression GERD (gastroesophageal reflux disease) Herpes History of celiac disease Hx of chronic kidney disease Hx of constipation Hx of gastroesophageal reflux (GERD) Internal and external prolapsed hemorrhoids Mild recurrent major depression PAC (premature atrial contraction) Physical exam Polyarthralgia Surgical History Hx of section Hx of varicose vein ligation and stripping Family History Family History Mother Hx of diabetes mellitus Hx of hypertensive heart disease Father Hx of diabetes mellitus Hx of hypertensive heart disease Paternal Uncle History of colon cancer Maternal Grandmother Cancer Daughter No problems noted. Sister No problems noted. Son No problems noted. Son No problems noted. Brother No problems noted. Social History Social History Household Members: None Housing: Apartment Alcohol intake: current Alcohol intake frequency: a few times a month Alcohol type: hard liquor Patient Tobacco Use Status: Former Tobacco user Tobacco use type: Cigarette e-Cigarette/Vaping Use: Never Used Second Hand Smoke Exposure: No Advance Directives: No Advance Directives Information Provided: Yes service: No Current occupational status: employed Current occupational exposures/hazards: No Cognitive needs: No Hearing needs: No Vision needs: No Physical Exam Vital Signs: Vital Signs: Last Vital Signs Temp 97.4 F 11/14/22 15:11 Pulse 69 11/14/22 15:11 Resp 16 11/14/22 15:11 BP 107/61 11/14/22 15:11 Pulse Ox 98 11/14/22 15:11 O2 Del Method 11/14/22 15:11 BMI result Body Mass Index 25.7 Appearance: Alert. Oriented X3. No acute distress. HEENT: normal inspection Neck: Normal inspection, normal range of motion. No midline tenderness. There is soft tissue tenderness and palpable spasm of the upper trapezius on the bilateral neck. Back: Normal inspection, normal range of motion. There is soft tissue tenderness to the medial scapula was extending to the upper trapezius. CVS: Normal heart rate and rhythm. Pulses normal. Respiratory: No respiratory distress. Breath sounds normal. Skin: Skin warm and dry. Normal skin color. Normal skin turgor. No rashes. Extremities: Normal inspection x4, normal ROM x4 Neuro: Oriented X 3. Grossly normal, nonfocal. Equal blow molder strength bilaterally. Course Course Course Narrative: 52-year-old female presenting to the ER for evaluation of upper back pain, bilateral shoulder pain and neck pain for the last several months. Pain is worse with palpation, movement. Feels like the muscles are tight and and spasm. On examination clinical presentation is consistent with muscle strain and spasm. He has been taking Tylenol with no relief. Will add NSAID, muscle relaxer, Lidoderm patches. She would like a work note for the next couple days so she can rest. She will follow-up with her PCP. Stable for discharge home. Medical Decision Making Differential Diagnosis Differential Diagnoses: The differential diagnosis associated with the presentation includes 52-year-old female presents to the ER with upper back pain differential includes but not limited to muscle strain, spasm, degenerative disc disease, cervical radiculopathy, rotator cuff injury, overuse injury, tendinitis, doubt PE, gallbladder etiology Radiology Impression Discussion of test interpretation with radiology: I have reviewed the radiologist's reading. External Record Review External record reviewed: Outpatient record, Prior outpatient labs and Prior outpatient radiology normal renal function - ok for nsaids Tests considered The following testing was considered but not selected: xr not indicated - soft tissue tenderness only Prescription Management I considered prescription management with: Pain Medication Critical Care Time Critical Care Time Critical Care Time: No Discharge Plan Discharge Clinical Impression: Chronic upper back pain Patient Disposition: Home, Self-Care Instructions: Back Pain (ED) Additional Instructions: Your pain is due to muscle strain, spasm and tension. No bending, lifting or twisting. Recommend using a heating pad to the area and gently massage to relieve the muscle tension. Take medications as prescribed to help with pain and discomfort. Follow up with your Primary Care Doctor this week. If you develop new or worsening symptoms call 911 or come back to the ER for further evaluation. [place] dolor se debe a tensi?n, espasmo y distensi?n muscular. Sin doblar, levantar o torcer. Se recomienda utilizar lucinda almohadilla t?rmica en la ariel y masajear suavemente para aliviar la tensi?n muscular. [place] los medicamentos seg?n lo prescrito para ayudar con el dolor y la incomodidad. Kassie un seguimiento con [place] m?dico de atenci?n primaria esta semana. Si desarrolla s?ntomas nuevos o que empeoran, llame al 911 o regrese a la perla de emergencias para lucinda evaluaci?n adicional. Prescriptions: New cyclobenzaprine 10 mg tablet 10 mg PO TID PRN (Reason: muscle spasm) Qty: 14 0RF ibuprofen 600 mg tablet 600 mg PO Q8H PRN (Reason: pain) Qty: 14 0RF lidocaine 5 % adhesive patch,medicated 1 patch topical DAILY Qty: 15 0RF Rx Instructions: leave on most painful area for up to 12 hrs No Action hydrocortisone [Proctosol HC] 2.5 % cream with perineal applicator 1 appl AL BID-QID PRN (Reason: hemorrhoids) 30 Days Qty: 28.35 0RF hydrocortisone [Anti-Itch (HC)] 1 % cream 1 appl topical TID PRN (Reason: skin irritation) 14 Days Qty: 28.4 1RF cholecalciferol (vitamin D3) 50 mcg (2,000 unit) capsule 50 mcg PO DAILY Qty: 90 3RF cromolyn 4 % drops 1 drp ophthalmic (eye) QID 5 Days Qty: 10 0RF hydrocortisone 2.5 % cream with perineal applicator 1 appl AL DAILY PRN (Reason: hemorrhoids) Qty: 30 0RF lidocaine 5 % ointment 1 appl topical BID PRN (Reason: skin irritation) Qty: 35.44 0RF ketoconazole 2 % shampoo 1 appl topical 2XW 30 Days Qty: 120 6RF sennosides [Natural Senna Laxative] 8.6 mg tablet 17.2 mg PO BID Qty: 60 3RF escitalopram oxalate 10 mg tablet 10 mg PO DAILY 90 Days Qty: 90 1RF hydroxyzine HCl 25 mg tablet 25 mg PO BEDTIME PRN (Reason: insomnia) Qty: 14 0RF clotrimazole-betamethasone 1-0.05 % cream 1 appl topical BID PRN (Reason: itching) 7 Days Qty: 45 0RF fluticasone propionate [Flonase Allergy Relief] 50 mcg/actuation spray,suspension 1 spray intranasal DAILY Rx Instructions: administer into each nostril docusate sodium 100 mg capsule 100 mg PO BID Qty: 180 3RF Referrals: Sisi Perez MD [Primary Care Provider] - Stand Alone Forms: Work/School Release Interventions: ED Discharge Assessment Last Done: 11/14/22 15:44
== END 2022-11-14 15:45 | disposition home or self-care (01) ==
LOC: HO.ED 15:19
PROVIDERS: Emergency Provider Emergency Medicine; PCP Internal Medicine
DX: M54.50 Low back pain, unspecified (principal); M54.6 Pain in thoracic spine
CPT/HCPCS: 99282; 99283

== ENCOUNTER 2022-12-10 19:59 | Emergency (ER) | payer OTHER, SELFPAY ==
--- NOTE | ~2022-12-10 | CT_ITS ---
EXAMINATION: CT ABDOMEN AND PELVIS WITHOUT CONTRAST CLINICAL INFORMATION: Epigastric pain COMPARISON: Previous CT of the abdomen and pelvis most recent April 2021 TECHNIQUE: Multidetector volumetric imaging was performed from the superior aspect of the liver through the pubic symphysis. Sagittal and coronal reformatted images were obtained on the technologist's workstation. This CT examination was performed using dose optimization techniques as appropriate, variously including the following: *Automated exposure control *Adjustment of mA and/or kV according to patient size (this includes techniques or standardized protocols for targeted exams where dose is matched to indication/reason for exam; i.e. extremities or head) *Use of iterative reconstruction technique DLP: 545 mGy-cm FINDINGS: LUNG BASES: The visualized lung bases are unremarkable. LIVER, GALLBLADDER, AND BILIARY TREE: The liver is normal in size, shape, and attenuation. No focal hepatic lesion or biliary ductal dilatation is present. The gallbladder is unremarkable with no evidence of radiopaque gallstones, gallbladder wall thickening, or obvious pericholecystic inflammatory changes. PANCREAS: Unremarkable. SPLEEN: Unremarkable. ADRENAL GLANDS: Unremarkable. KIDNEYS AND URETERS: The kidneys are normal in size, shape, and attenuation. No hydronephrosis, hydroureter, or calculi seen. No perinephric stranding. BLADDER: Unremarkable. GASTROINTESTINAL TRACT: Stool throughout the colon questionable for constipation. The small and large bowel are unremarkable. The appendix is unremarkable. ABDOMINAL WALL: Small umbilical hernia containing fat. LYMPH NODES: Normal. VASCULAR: Unremarkable. PELVIC VISCERA: Unremarkable. OSSEOUS STRUCTURES: Unremarkable. CT/CT abdomen pelvis wo IV con IMPRESSION: Mild constipation. Small umbilical hernia containing fat. Fleischner guidelines were followed.
--- NOTE | 2022-12-10 20:25 | ED.ABDPAIN ---
HPI - Abdominal Pain General Chief Complaint: Abdominal Pain <ELSA Edwards - Last Filed: 12/10/22 20:27> Stated Complaint: abd pain <ELSA Edwards - Last Filed: 12/10/22 20:27> Time Seen by Provider: 12/10/22 21:17 <ELSA Edwards - Last Filed: 12/10/22 20:27> Source: patient <Joe La MD - Last Filed: 12/10/22 22:07> Mode of arrival: ambulatory <oJe La MD - Last Filed: 12/10/22 22:07> Limitations: no limitations <Joe La MD - Last Filed: 12/10/22 22:07> History of Present Illness HPI narrative: Patient with history of chronic constipation comes in for diffuse abdominal pain for last 2 weeks no nausea no vomiting no fever no urinary complaints patient taking senna without much response <Joe La MD - Last Filed: 12/10/22 22:07> Related Data Home Medications: Home Medications Medication Instructions Recorded Confirmed fluticasone propionate 50 1 spray intranasal DAILY 07/27/20 08/22/22 mcg/actuation nasal spray,suspension (Flonase Allergy Relief) Previous Rx's Medication Instructions Recorded ketoconazole 2 % shampoo 1 appl topical 2XW 30 days #120 mL 02/22/21 clotrimazole-betamethasone 1 1 appl topical BID PRN itching 7 03/30/21 %-0.05 % topical cream days #45 grams docusate sodium 100 mg capsule 100 mg PO BID #180 caps 05/15/22 Proctosol HC 2.5 % topical cream 1 appl UT BID-QID PRN hemorrhoids 05/18/22 perineal applicator 30 days #28.35 grams (hydrocortisone) hydrocortisone 2.5 % topical cream 1 appl UT DAILY PRN hemorrhoids 08/12/22 with perineal applicator #30 grams lidocaine 5 % topical ointment 1 appl topical BID PRN skin 08/12/22 irritation #35.44 grams hydrocortisone 1 % topical cream 1 appl topical TID PRN skin 08/18/22 (Anti-Itch (hydrocortisone)) irritation 2 weeks #28.4 grams escitalopram oxalate 10 mg tablet 10 mg PO DAILY 90 days #90 tabs 08/22/22 hydroxyzine HCl 25 mg tablet 25 mg PO BEDTIME PRN insomnia #14 08/22/22 tabs sennosides 8.6 mg tablet (Natural 17.2 mg PO BID constipation #60 08/22/22 Senna Laxative) tabs cholecalciferol (vitamin D3) 50 50 mcg PO DAILY #90 caps 08/29/22 mcg (2,000 unit) capsule cromolyn 4 % eye drops 1 drp ophthalmic (eye) QID 5 days 09/11/22 #10 mL cyclobenzaprine 10 mg tablet 10 mg PO TID PRN muscle spasm #14 11/14/22 tabs ibuprofen 600 mg tablet 600 mg PO Q8H PRN pain #14 tabs 11/14/22 lidocaine 5 % topical patch 1 patch topical DAILY #15 ea 11/14/22 acetaminophen 650 mg 1,300 mg PO Q8H PRN fever or pain 11/24/22 tablet,extended release (Mapap 30 days #180 tabs Arthritis Pain) bisacodyl 5 mg tablet,delayed 10 mg PO BEDTIME 2 days #4 tabs 12/10/22 release (Dulcolax (bisacodyl)) polyethylene glycol 3350 17 17 g PO DAILY #510 grams 12/10/22 gram/dose oral powder (Miralax) <ELSA Edwards - Last Filed: 12/10/22 20:27> Allergies/Adverse Reactions: Allergies Allergy/AdvReac Type Severity Reaction Status Date / Time gluten [GLUTEN] Allergy Intermediate CELIAC Verified 08/22/22 15:30 DISEASE Penicillins [PENICILLINS] Allergy Intermediate AGITATION Verified 08/22/22 15:30 <ELSA Edwards - Last Filed: 12/10/22 20:27> Review of Systems Review of Systems Yes all other systems are reviewed and are negative <Joe La MD - Last Filed: 12/10/22 22:07> [facility] Past Medical History Medical History: Medical History Adult celiac disease Anemia Anxiety and depression Blurry vision Chest pain Constipation by delayed colonic transit Depression GERD (gastroesophageal reflux disease) Herpes History of celiac disease Hx of chronic kidney disease Hx of constipation Hx of gastroesophageal reflux (GERD) Internal and external prolapsed hemorrhoids Mild recurrent major depression PAC (premature atrial contraction) Physical exam Polyarthralgia <ELSA Edwards - Last Filed: 12/10/22 20:27> Surgical History: Surgical History Hx of section Hx of varicose vein ligation and stripping <ELSA Edwards - Last Filed: 12/10/22 20:27> Family History Family History: Family History Mother Hx of diabetes mellitus Hx of hypertensive heart disease Father Hx of diabetes mellitus Hx of hypertensive heart disease Paternal Uncle History of colon cancer Maternal Grandmother Cancer Daughter No problems noted. Sister No problems noted. Son No problems noted. Son No problems noted. Brother No problems noted. <ELSA Edwards - Last Filed: 12/10/22 20:27> Social History Social History: Social History Household Members: None Housing: Apartment Alcohol intake: current Alcohol intake frequency: a few times a month Alcohol type: hard liquor Patient Tobacco Use Status: Former Tobacco user Tobacco use type: Cigarette e-Cigarette/Vaping Use: Never Used Second Hand Smoke Exposure: No Advance Directives: No Advance Directives Information Provided: Yes service: No Current occupational status: employed Current occupational exposures/hazards: No Cognitive needs: No Hearing needs: No Vision needs: No <ELSA Edwards Last Filed: 12/10/22 20:27> Physical Exam ED Vital Signs: Vital Signs - 24 hr 12/10/22 20:27 12/10/22 20:51 Temperature 98 F 97.5 F Pulse Rate 82 77 Respiratory Rate 16 17 Blood Pressure 153/90 H 109/80 Pulse Oximetry 99 95 Oxygen Delivery Method Room Air BMI result Body Mass Index 25.7 <ELSA Edwards Last Filed: 12/10/22 20:27> Vital Signs - 24 hr 12/10/22 20:27 12/10/22 20:51 Temperature 98 F 97.5 F Pulse Rate 82 77 Respiratory Rate 16 17 Blood Pressure 153/90 H 109/80 Pulse Oximetry 99 95 Oxygen Delivery Method Room Air BMI result Body Mass Index 25.7 <Joe La MD - Last Filed: 12/10/22 22:07> Appearance: Alert. Oriented X3. No acute distress. Eyes: PERRLA, No Nystagmus ENT: Pharynx normal. Oral Mucosa moist Neck: Normal inspection. Neck supple. CVS: Normal heart rate and rhythm. Pulses normal. Respiratory: No respiratory distress. Equal air entry bilateral, no wheezing/rales/rhonchi Abdomen: Soft , mild diffuse tenderness. Bowel sounds are present, no mass palpable, no CVA tenderness Skin: Skin warm and dry. Normal skin color. Normal skin turgor. Extremities: No lower extremity edema. No calf tenderness Neuro: Oriented X 3. No motor deficit. <Joe La MD - Last Filed: 12/10/22 22:07> Course Course Course Narrative: This is an RME: Additional HPI, ROS, PE not included below will be deferred to primary provider 52-year-old female presents with complaints of epigastric pain x2 weeks intermittent severe in nature. Patient tells me she that is getting better however it seems to be worsening. She tells me that her father had abdominal pain and ended up dying from it so she wanted to come and get checked out. Denies fevers, chills, nausea, vomiting, headache, vision changes, dizziness and weakness. PE with diffuse tenderness. Vital signs stable. No signs of acute abdomen. Plan labs, urine, CT of abdomen pelvis without contrast. <ELSA Edwards - Last Filed: 12/10/22 20:27> Medical Decision Making Medical Decision Making [facility] Narrative: Patient with stable labs CT scan of the abdomen done by the triage provider which shows constipation no other acute pathology will treat patient with MiraLax advised to follow-up with PCP <Joe La MD - Last Filed: 12/10/22 22:07> Lab Data [facility] Lab Attestation statement: I reviewed the patient's lab results. <Joe La MD - Last Filed: 12/10/22 22:07> Result Diagrams: 12/10/22 20:23 12/10/22 20:23 <LESA Edwards - Last Filed: 12/10/22 20:27> Labs: Lab Results 12/10/22 12/10/22 12/10/22 Range/Units 20:15 20:15 20:23 WBC 8.5 (4.8-10.8) X10*3/uL RBC 4.15 L (4.20-5.50) X10*6/uL Hgb 11.6 L (12.0-16.0) g/dl Hct 35.0 L (37.0-47.0) % MCV 84.3 (80.0-98.0) fL MCH 28.0 (27.0-33.0) pg MCHC 33.1 (31.0-35.0) g/dl RDW 16.5 H (11.0-16.0) % Plt Count 405 H (160-400) X10*3/uL MPV 9.7 (9.4-12.3) fL Immature Gran % (Auto) 0.1 (0.0-0.4) % Neut % (Auto) 52.5 (45-73) % Lymph % (Auto) 37.7 (20-40) % [place] % (Auto) 8.7 (2-11) % Eos % (Auto) 0.5 (0-4) % Baso % (Auto) 0.5 (0-2) % Lymph # (Auto) 3.2 (1.2-4.9) X10*3/uL [place] # (Auto) 0.7 (0.1-1.2) X10*3/uL Eos # (Auto) 0.0 (0.0-0.4) X10*3/uL Baso # (Auto) 0.0 (0.0-0.2) X10*3/uL Abs Immat Gran (auto) 0.01 (0.00-0.03) X10*3/uL Absolute Neuts (auto) 4.5 (2.0-8.3) x10*3/uL Absolute Nucleated RBC 0.000 (0.0-0.012) X10*3/uL Nucleated RBC % (auto) 0.0 (0.0-0.2) /100WBC Sodium (135-145) mmol/L Potassium (3.3-5.1) mmol/L Chloride (96-108) mmol/L Carbon Dioxide (22-29) mmol/L Anion Gap (12-20) BUN (9-16) mg/dL Creatinine (0.5-1.4) mg/dL Estim Creat Clear Calc Estimated GFR Random Glucose (60-115) mg/dL Calcium (8.4-10.2) mg/dL Total Bilirubin (0.0-1.0) mg/dL AST (5-31) U/L ALT (0-31) U/L Alkaline Phosphatase (39-117) U/L Total Protein (6.5-8.0) g/dL Albumin (3.5-5.0) g/dL Lipase (8-78) U/L COVID-19 ([facility]AT[facility]) Negative (Negative) COVID-19 Clin Com See Note Influenza Type A (MANISH) Negative (Negative) Influenza Type B (MANISH) Negative (Negative) Influenza A & B Note See Note 12/10/22 Range/Units 20:23 WBC (4.8-10.8) X10*3/uL RBC (4.20-5.50) X10*6/uL Hgb (12.0-16.0) g/dl Hct (37.0-47.0) % MCV (80.0-98.0) fL MCH (27.0-33.0) pg MCHC (31.0-35.0) g/dl RDW (11.0-16.0) % Plt Count (160-400) X10*3/uL MPV (9.4-12.3) fL Immature Gran % (Auto) (0.0-0.4) % Neut % (Auto) (45-73) % Lymph % (Auto) (20-40) % [place] % (Auto) (2-11) % Eos % (Auto) (0-4) % Baso % (Auto) (0-2) % Lymph # (Auto) (1.2-4.9) X10*3/uL [place] # (Auto) (0.1-1.2) X10*3/uL Eos # (Auto) (0.0-0.4) X10*3/uL Baso # (Auto) (0.0-0.2) X10*3/uL Abs Immat Gran (auto) (0.00-0.03) X10*3/uL Absolute Neuts (auto) (2.0-8.3) x10*3/uL Absolute Nucleated RBC (0.0-0.012) X10*3/uL Nucleated RBC % (auto) (0.0-0.2) /100WBC Sodium 137 (135-145) mmol/L Potassium 4.2 (3.3-5.1) mmol/L Chloride 105 (96-108) mmol/L Carbon Dioxide 25 (22-29) mmol/L Anion Gap 11 L (12-20) BUN 11 (9-16) mg/dL Creatinine 0.72 (0.5-1.4) mg/dL Estim Creat Clear Calc 85.6 Estimated GFR > 60 Random Glucose 92 (60-115) mg/dL Calcium 9.1 (8.4-10.2) mg/dL Total Bilirubin 0.3 (0.0-1.0) mg/dL AST 27 (5-31) U/L ALT 23 (0-31) U/L Alkaline Phosphatase 69 (39-117) U/L Total Protein 6.8 (6.5-8.0) g/dL Albumin 4.1 (3.5-5.0) g/dL Lipase 36 (8-78) U/L COVID-19 ([facility]) (Negative) COVID-19 Clin Com Influenza Type A (MANISH) (Negative) Influenza Type B (MANISH) (Negative) Influenza A & B Note <ELSA Edwards - Last Filed: 12/10/22 20:27> Lab Results 12/10/22 12/10/22 12/10/22 Range/Units 20:15 20:15 20:23 WBC 8.5 (4.8-10.8) X10*3/uL RBC 4.15 L (4.20-5.50) X10*6/uL Hgb 11.6 L (12.0-16.0) g/dl Hct 35.0 L (37.0-47.0) % MCV 84.3 (80.0-98.0) fL MCH 28.0 (27.0-33.0) pg MCHC 33.1 (31.0-35.0) g/dl RDW 16.5 H (11.0-16.0) % Plt Count 405 H (160-400) X10*3/uL MPV 9.7 (9.4-12.3) fL Immature Gran % (Auto) 0.1 (0.0-0.4) % Neut % (Auto) 52.5 (45-73) % Lymph % (Auto) 37.7 (20-40) % [place] % (Auto) 8.7 (2-11) % Eos % (Auto) 0.5 (0-4) % Baso % (Auto) 0.5 (0-2) % Lymph # (Auto) 3.2 (1.2-4.9) X10*3/uL [place] # (Auto) 0.7 (0.1-1.2) X10*3/uL Eos # (Auto) 0.0 (0.0-0.4) X10*3/uL Baso # (Auto) 0.0 (0.0-0.2) X10*3/uL Abs Immat Gran (auto) 0.01 (0.00-0.03) X10*3/uL Absolute Neuts (auto) 4.5 (2.0-8.3) x10*3/uL Absolute Nucleated RBC 0.000 (0.0-0.012) X10*3/uL Nucleated RBC % (auto) 0.0 (0.0-0.2) /100WBC Sodium (135-145) mmol/L Potassium (3.3-5.1) mmol/L Chloride (96-108) mmol/L Carbon Dioxide (22-29) mmol/L Anion Gap (12-20) BUN (9-16) mg/dL Creatinine (0.5-1.4) mg/dL Estim Creat Clear Calc Estimated GFR Random Glucose (60-115) mg/dL Calcium (8.4-10.2) mg/dL Total Bilirubin (0.0-1.0) mg/dL AST (5-31) U/L ALT (0-31) U/L Alkaline Phosphatase (39-117) U/L Total Protein (6.5-8.0) g/dL Albumin (3.5-5.0) g/dL Lipase (8-78) U/L COVID-19 ([facility]) Negative (Negative) COVID-19 Clin Com See Note Influenza Type A (MAN[facility]) Negative (Negative) Influenza Type B (MAN[facility]) Negative (Negative) Influenza A & B Note See Note 12/10/22 Range/Units 20:23 WBC (4.8-10.8) X10*3/uL RBC (4.20-5.50) X10*6/uL Hgb (12.0-16.0) g/dl Hct (37.0-47.0) % MCV (80.0-98.0) fL MCH (27.0-33.0) pg MCHC (31.0-35.0) g/dl RDW (11.0-16.0) % Plt Count (160-400) X10*3/uL MPV (9.4-12.3) fL Immature Gran % (Auto) (0.0-0.4) % Neut % (Auto) (45-73) % Lymph % (Auto) (20-40) % [place] % (Auto) (2-11) % Eos % (Auto) (0-4) % Baso % (Auto) (0-2) % Lymph # (Auto) (1.2-4.9) X10*3/uL [place] # (Auto) (0.1-1.2) X10*3/uL Eos # (Auto) (0.0-0.4) X10*3/uL Baso # (Auto) (0.0-0.2) X10*3/uL Abs Immat Gran (auto) (0.00-0.03) X10*3/uL Absolute Neuts (auto) (2.0-8.3) x10*3/uL Absolute Nucleated RBC (0.0-0.012) X10*3/uL Nucleated RBC % (auto) (0.0-0.2) /100WBC Sodium 137 (135-145) mmol/L Potassium 4.2 (3.3-5.1) mmol/L Chloride 105 (96-108) mmol/L Carbon Dioxide 25 (22-29) mmol/L Anion Gap 11 L (12-20) BUN 11 (9-16) mg/dL Creatinine 0.72 (0.5-1.4) mg/dL Estim Creat Clear Calc 85.6 Estimated GFR > 60 Random Glucose 92 (60-115) mg/dL Calcium 9.1 (8.4-10.2) mg/dL Total Bilirubin 0.3 (0.0-1.0) mg/dL AST 27 (5-31) U/L ALT 23 (0-31) U/L Alkaline Phosphatase 69 (39-117) U/L Total Protein 6.8 (6.5-8.0) g/dL Albumin 4.1 (3.5-5.0) g/dL Lipase 36 (8-78) U/L COVID-19 ([facility]) (Negative) COVID-19 Clin Com Influenza Type A (MAN[facility]) (Negative) Influenza Type B (MAN[facility]) (Negative) Influenza A & B Note <Joe La MD - Last Filed: 12/10/22 22:07> Medications Administered Discontinued Medications Generic Name Dose Route Start Last Admin Trade Name Freq PRN Reason Stop Dose Admin Bisacodyl 10 mg 12/10/22 21:43 12/10/22 22:02 Bisacodyl 5 Mg Tablet. PO 12/10/22 21:44 10 mg ONCE ONE Administration Magnesium Hydroxide 30 ml 12/10/22 21:43 12/10/22 22:01 Milk Of Magnesia 30 Ml Oral.Susp PO 12/10/22 21:44 30 ml ONCE ONE Administration <ELSA Edwards - Last Filed: 12/10/22 20:27> Medications Administered Discontinued Medications Generic Name Dose Route Start Last Admin Trade Name Freq PRN Reason Stop Dose Admin Bisacodyl 10 mg 12/10/22 21:43 12/10/22 22:02 Bisacodyl 5 Mg Tablet.Dr CRISTOBAL 12/10/22 21:44 10 mg ONCE ONE Administration Magnesium Hydroxide 30 ml 12/10/22 21:43 12/10/22 22:01 Milk Of Magnesia 30 Ml Oral.Susp PO 12/10/22 21:44 30 ml ONCE ONE Administration <Joe La MD - Last Filed: 12/10/22 22:07> Discharge Plan Discharge Clinical Impression: Constipation <ELSA Edwards - Last Filed: 12/10/22 20:27> Patient Disposition: Home, Self-Care <ELSA Edwards - Last Filed: 12/10/22 20:27> Instructions: Constipation (ED) <ELSA Edwards - Last Filed: 12/10/22 20:27> Additional Instructions: Drink plenty of fluids Take MiraLax once or twice daily for constipation Take senna/Dulcolax daily Have prunes daily Eat lot of fibers <ELSA Edwards - Last Filed: 12/10/22 20:27> Prescriptions: New polyethylene glycol 3350 [Miralax] 17 gram/dose powder 17 g PO DAILY Qty: 510 0RF bisacodyl [Dulcolax (bisacodyl)] 5 mg tablet,delayed release (DR/EC) 10 mg PO BEDTIME 2 Days Qty: 4 0RF No Action hydrocortisone [Proctosol HC] 2.5 % cream with perineal applicator 1 appl UT BID-QID PRN (Reason: hemorrhoids) 30 Days Qty: 28.35 0RF hydrocortisone [Anti-Itch (HC)] 1 % cream 1 appl topical TID PRN (Reason: skin irritation) 14 Days Qty: 28.4 1RF cholecalciferol (vitamin D3) 50 mcg (2,000 unit) capsule 50 mcg PO DAILY Qty: 90 3RF cromolyn 4 % drops 1 drp ophthalmic (eye) QID 5 Days Qty: 10 0RF acetaminophen [Mapap Arthritis Pain] 650 mg tablet extended release 1,300 mg PO Q8H PRN (Reason: fever or pain) 30 Days Qty: 180 0RF hydrocortisone 2.5 % cream with perineal applicator 1 appl UT DAILY PRN (Reason: hemorrhoids) Qty: 30 0RF lidocaine 5 % ointment 1 appl topical BID PRN (Reason: skin irritation) Qty: 35.44 0RF cyclobenzaprine 10 mg tablet 10 mg PO TID PRN (Reason: muscle spasm) Qty: 14 0RF ibuprofen 600 mg tablet 600 mg PO Q8H PRN (Reason: pain) Qty: 14 0RF lidocaine 5 % adhesive patch,medicated 1 patch topical DAILY Qty: 15 0RF Rx Instructions: leave on most painful area for up to 12 hrs ketoconazole 2 % shampoo 1 appl topical 2XW 30 Days Qty: 120 6RF sennosides [Natural Senna Laxative] 8.6 mg tablet 17.2 mg PO BID Qty: 60 3RF escitalopram oxalate 10 mg tablet 10 mg PO DAILY 90 Days Qty: 90 1RF hydroxyzine HCl 25 mg tablet 25 mg PO BEDTIME PRN (Reason: insomnia) Qty: 14 0RF clotrimazole-betamethasone 1-0.05 % cream 1 appl topical BID PRN (Reason: itching) 7 Days Qty: 45 0RF fluticasone propionate [Flonase Allergy Relief] 50 mcg/actuation spray,suspension 1 spray intranasal DAILY Rx Instructions: administer into each nostril docusate sodium 100 mg capsule 100 mg PO BID Qty: 180 3RF <ELSA Edwards - Last Filed: 12/10/22 20:27>
[2022-12-10 20:27] VITALS: BP 153/90; PULSE 82; RESP 16; TEMP 36.6; O2SAT 99; BMI 25.7
[2022-12-10 20:29] LABS: MANUAL DIFF FLAG NO
[2022-12-10 20:32] LABS: Basophils Percent Auto 0.5 % (0-2); Eosinophils Percent Auto 0.5 % (0-4); Hemoglobin 11.6 g/dl (12.0-16.0); Imm Gran Abs Auto 0.01 X10*3/uL (0.00-0.03); Imm Gran Pct Auto 0.1 % (0.0-0.4); Lymphocytes Absolute Auto 3.2 X10*3/uL (1.2-4.9); Lymphocytes Percent Auto 37.7 % (20-40); Mean Corpuscular HGB Conc 33.1 g/dl (31.0-35.0); Mean Corpuscular Volume 84.3 fL (80.0-98.0); Mean Platelet Volume 9.7 fL (9.4-12.3); Monocytes Absolute Auto 0.7 X10*3/uL (0.1-1.2); Monocytes Percent Auto 8.7 % (2-11); Neutrophils Absolute Auto 4.5 x10*3/uL (2.0-8.3); Neutrophils Percent Auto 52.5 % (45-73); Platelet Count 405 X10*3/uL (160-400); Red Blood Count 4.15 X10*6/uL (4.20-5.50); Red Cell Distribution Width 16.5 % (11.0-16.0); White Blood Count 8.5 X10*3/uL (4.8-10.8)
[2022-12-10 20:46] LABS: Alanine Aminotransferase 23 U/L (0-31); Albumin Level 4.1 g/dL (3.5-5.0); Alkaline Phosphatase 69 U/L (39-117); Anion Gap 11 (12-20); Aspartate Amino Transferase 27 U/L (5-31); Bilirubin Total 0.3 mg/dL (0.0-1.0); Blood Urea Nitrogen 11 mg/dL (9-16); Calcium 9.1 mg/dL (8.4-10.2); Carbon Dioxide 25 mmol/L (22-29); Chloride 105 mmol/L (96-108); Creatinine Clr Calc Pharmacy 85.6; Estimated Glomerular Filt Rate > 60; Glucose Random 92 mg/dL (60-115); Lipase 36 U/L (8-78); Potassium 4.2 mmol/L (3.3-5.1); Sodium 137 mmol/L (135-145); Total Protein 6.8 g/dL (6.5-8.0)
[2022-12-10 20:51] VITALS: BP 109/80; PULSE 77; RESP 17; TEMP 36.4; O2SAT 95
[2022-12-10 20:54] LABS: COVID-19 Test Negative (Negative); IDNOW Serial# 6674DD1D
[2022-12-10 20:58] LABS: IDNOW Serial# 55D5AD1C; Influenza A Negative (Negative); Influenza B2 Negative (Negative)
[2022-12-10] MEDS: Milk of Magnesia 30 ML ORAL.SUSP PO (22:01)
[2022-12-10] MEDS: bisacodyL 5 MG TABLET.DR 10 MG PO (22:02)
== END 2022-12-10 22:09 | disposition home or self-care (01) ==
PROVIDERS: Physician Assistant; Emergency Provider Internal Medicine; PCP Internal Medicine
DX: K59.00 Constipation, unspecified (principal); Z20.822 Contact with and (suspected) exposure to COVID-19; Z20.828 Contact with and (suspected) exposure to other viral communicable diseases; Z79.899 Other long term (current) drug therapy; Z87.891 Personal history of nicotine dependence
CPT/HCPCS: 36415; 74176; 80053; 83690; 85025; 87502; 87635; 99283

== ENCOUNTER → 2022-12-26 10:21 | Outpatient (BNVA) | payer OTHER, SELFPAY | PROVIDERS: PCP Internal Medicine; Visit Provider Surgery | DX: K42.9 Umbilical hernia without obstruction or gangrene (principal); K59.01 Slow transit constipation; K90.0 Celiac disease; D64.9 Anemia, unspecified; D75.839 Thrombocytosis, unspecified | CPT/HCPCS: 99202 ==

== ENCOUNTER → 2023-01-05 10:13 | Outpatient (BNVA) | payer OTHER, SELFPAY | PROVIDERS: PCP Internal Medicine; Visit Provider Nurse Practitioner Family | DX: K59.01 Slow transit constipation (principal); K90.0 Celiac disease; R10.13 Epigastric pain | CPT/HCPCS: 99212 ==

== ENCOUNTER 2023-03-07 19:02 | Emergency (ER) | payer OTHER, SELFPAY ==
--- NOTE | 2023-03-07 07:29 | ECG_ITS ---
Test Reason : si Blood Pressure : / mmHG Vent. Rate : 070 BPM Atrial Rate : 070 BPM P-R Int : 158 ms QRS Dur : 074 ms QT Int : 390 ms P-R-T Axes : 032 005 -12 degrees QTc Int : 421 ms Normal sinus rhythm Normal ECG When compared with ECG of 07-MAR-2023 19:47, QT has shortened Referred By: Heidi Ventura Electronically Signed By:Rangel Nava
[2023-03-07 19:07] VITALS: BP 133/76; PULSE 80; RESP 18; TEMP 36.9; O2SAT 100; BMI 28.8
--- NOTE | 2023-03-07 19:09 | ED.PSYCH ---
HPI - Psych General Chief Complaint: Psychiatric Symptoms Stated Complaint: anxiety, agitated, depression, crisis Time Seen by Provider: 03/07/23 19:16 Related Data Home Medications Medication Instructions Recorded Confirmed fluticasone propionate 50 1 spray intranasal DAILY 07/27/20 12/20/22 mcg/actuation nasal spray,suspension (Flonase Allergy Relief) Previous Rx's Medication Instructions Recorded clotrimazole-betamethasone 1 1 appl topical BID PRN itching 7 03/30/21 %-0.05 % topical cream days #45 grams lidocaine 5 % topical ointment 1 appl topical BID PRN skin 08/12/22 irritation #35.44 grams cholecalciferol (vitamin D3) 50 50 mcg PO DAILY #90 caps 08/29/22 mcg (2,000 unit) capsule ibuprofen 600 mg tablet 600 mg PO Q8H PRN pain #14 tabs 11/14/22 lidocaine 5 % topical patch 1 patch topical DAILY #15 ea 11/14/22 hydrocortisone 1 % topical cream 1 appl topical TID PRN skin 12/11/22 (Anti-Itch (hydrocortisone)) irritation 2 weeks #28.4 grams sennosides 8.6 mg tablet (Natural 17.2 mg PO BID constipation #60 12/26/22 Senna Laxative) tabs acetaminophen 650 mg 1,300 mg PO Q8H PRN fever or pain 01/10/23 tablet,extended release (Mapap 30 days #180 tabs Arthritis Pain) cromolyn 4 % eye drops 1 drp ophthalmic (eye) QID 5 days 01/10/23 #10 mL nitrofurantoin 100 mg PO BID 5 days #10 caps 01/30/23 monohydrate/macrocrystals 100 mg capsule (Macrobid) phenazopyridine 200 mg tablet 200 mg PO TID 6 doses #6 tabs 01/30/23 (Pyridium) Allergies Allergy/AdvReac Type Severity Reaction Status Date / Time gluten [GLUTEN] Allergy Intermediate CELIAC Verified 01/30/23 11:33 DISEASE Penicillins [PENICILLINS] Allergy Intermediate AGITATION Verified 01/30/23 11:33 [facility] Past Medical History Medical History Adult celiac disease Anemia Anxiety and depression Blurry vision Chest pain Constipation by delayed colonic transit Depression GERD (gastroesophageal reflux disease) Herpes History of celiac disease Hx of chronic kidney disease Hx of constipation Hx of gastroesophageal reflux (GERD) Internal and external prolapsed hemorrhoids Mild recurrent major depression PAC (premature atrial contraction) Physical exam Polyarthralgia Surgical History Hx of section Hx of varicose vein ligation and stripping Family History Family History Mother Hx of diabetes mellitus Hx of hypertensive heart disease Father Hx of diabetes mellitus Hx of hypertensive heart disease Paternal Uncle History of colon cancer Maternal Grandmother Cancer Daughter No problems noted. Sister No problems noted. Son No problems noted. Son No problems noted. Brother No problems noted. Social History Social History Household Members: None Housing: Apartment Alcohol intake: current Alcohol intake frequency: a few times a month Alcohol type: hard liquor Patient Tobacco Use Status: Former Tobacco user Tobacco use type: Cigarette e-Cigarette/Vaping Use: Never Used Second Hand Smoke Exposure: No Advance Directives: No Advance Directives Information Provided: No service: No Current occupational status: employed Current occupational exposures/hazards: No Cognitive needs: No Hearing needs: No Vision needs: No Physical Exam Vital Signs: Vital Signs: Last Vital Signs Temp 98.9 F 03/07/23 19:52 Pulse 70 03/07/23 19:52 Resp 16 03/07/23 19:52 BP 106/54 L 03/07/23 19:52 Pulse Ox 97 03/07/23 19:52 O2 Del Method Room Air 03/07/23 19:07 BMI result Body Mass Index 28.8 Course Course Course Narrative: RME - 52 yo female with history of anxiety, depression, CKD, anemia, who presents to the ER for evaluation of agitation and anxiety. She used to be on a medication for anxiety but stopped taking them because she was geeling better. She had no medicine at home to help with the anxiety so she came to the ER. She reports longstanding depression, increased stress w/ relationship problems. No SI or HI. Plan: medical clearance and CARE team evaluation Medical Decision Making Lab Data 03/07/23 20:03 03/07/23 20:03 Labs: Lab Results 03/07/23 03/07/23 03/07/23 Range/Units 20:03 20:03 20:03 WBC 7.6 (4.8-10.8) X10*3/uL RBC 3.87 L (4.20-5.50) X10*6/uL Hgb 10.3 L (12.0-16.0) g/dl Hct 32.0 L (37.0-47.0) % MCV 82.7 (80.0-98.0) fL MCH 26.6 L (27.0-33.0) pg MCHC 32.2 (31.0-35.0) g/dl RDW 16.2 H (11.0-16.0) % Plt Count 338 (160-400) X10*3/uL MPV 9.5 (9.4-12.3) fL Immature Gran % (Auto) 0.1 (0.0-0.4) % Neut % (Auto) 47.8 (45-73) % Lymph % (Auto) 38.2 (20-40) % [place] % (Auto) 12.5 H (2-11) % Eos % (Auto) 0.7 (0-4) % Baso % (Auto) 0.7 (0-2) % Lymph # (Auto) 2.9 (1.2-4.9) X10*3/uL [place] # (Auto) 1.0 (0.1-1.2) X10*3/uL Eos # (Auto) 0.1 (0.0-0.4) X10*3/uL Baso # (Auto) 0.1 (0.0-0.2) X10*3/uL Abs Immat Gran (auto) 0.01 (0.00-0.03) X10*3/uL Absolute Neuts (auto) 3.6 (2.0-8.3) x10*3/uL Absolute Nucleated RBC 0.000 (0.0-0.012) X10*3/uL Nucleated RBC % (auto) 0.0 (0.0-0.2) /100WBC Sodium 140 (135-145) mmol/L Potassium 3.9 (3.3-5.1) mmol/L Chloride 109 H (96-108) mmol/L Carbon Dioxide 24 (22-29) mmol/L Anion Gap 11 L (12-20) BUN 8 L (9-16) mg/dL Creatinine 0.70 (0.5-1.4) mg/dL Estim Creat Clear Calc 92.8 Estimated GFR > 60 Random Glucose 103 (60-115) mg/dL Calcium 8.8 (8.4-10.2) mg/dL Magnesium 1.9 (1.6-2.6) mg/dL Total Bilirubin 0.3 (0.0-1.0) mg/dL AST 32 H (5-31) U/L ALT 23 (0-31) U/L Alkaline Phosphatase 64 (39-117) U/L Troponin I High Sens (<3.5-17.0) ng/L Total Protein 6.3 L (6.5-8.0) g/dL Albumin 3.7 (3.5-5.0) g/dL Salicylates < 5.0 L (15-30) mg/dL Urine Opiates Screen (Not Detect) Urine Fentanyl Screen (Not Detect) Acetaminophen < 17 (<30) mcg/mL Ur Barbiturates Screen (Not Detect) Ur Phencyclidine Scrn (Not Detect) Ur Amphetamines Screen (Not Detect) U Benzodiazepines Scrn (Not Detect) Urine Cocaine Screen (Not Detect) U Marijuana (THC) Screen (Not Detect) Ethyl Alcohol < 10 mg/dL COVID-19 (SAT[facility]) Negative (Negative) COVID-19 Clin Com See Note 03/07/23 03/07/23 Range/Units 20:03 20:03 WBC (4.8-10.8) X10*3/uL RBC (4.20-5.50) X10*6/uL Hgb (12.0-16.0) g/dl Hct (37.0-47.0) % MCV (80.0-98.0) fL MCH (27.0-33.0) pg MCHC (31.0-35.0) g/dl RDW (11.0-16.0) % Plt Count (160-400) X10*3/uL MPV (9.4-12.3) fL Immature Gran % (Auto) (0.0-0.4) % Neut % (Auto) (45-73) % Lymph % (Auto) (20-40) % [place] % (Auto) (2-11) % Eos % (Auto) (0-4) % Baso % (Auto) (0-2) % Lymph # (Auto) (1.2-4.9) X10*3/uL [place] # (Auto) (0.1-1.2) X10*3/uL Eos # (Auto) (0.0-0.4) X10*3/uL Baso # (Auto) (0.0-0.2) X10*3/uL Abs Immat Gran (auto) (0.00-0.03) X10*3/uL Absolute Neuts (auto) (2.0-8.3) x10*3/uL Absolute Nucleated RBC (0.0-0.012) X10*3/uL Nucleated RBC % (auto) (0.0-0.2) /100WBC Sodium (135-145) mmol/L Potassium (3.3-5.1) mmol/L Chloride (96-108) mmol/L Carbon Dioxide (22-29) mmol/L Anion Gap (12-20) BUN (9-16) mg/dL Creatinine (0.5-1.4) mg/dL Estim Creat Clear Calc Estimated GFR Random Glucose (60-115) mg/dL Calcium (8.4-10.2) mg/dL Magnesium (1.6-2.6) mg/dL Total Bilirubin (0.0-1.0) mg/dL AST (5-31) U/L ALT (0-31) U/L Alkaline Phosphatase (39-117) U/L Troponin I High Sens < 2.7 (<3.5-17.0) ng/L Total Protein (6.5-8.0) g/dL Albumin (3.5-5.0) g/dL Salicylates (15-30) mg/dL Urine Opiates Screen Not Detected (Not Detect) Urine Fentanyl Screen Not Detected (Not Detect) Acetaminophen (<30) mcg/mL Ur Barbiturates Screen Not Detected (Not Detect) Ur Phencyclidine Scrn Not Detected (Not Detect) Ur Amphetamines Screen Not Detected (Not Detect) U Benzodiazepines Scrn Not Detected (Not Detect) Urine Cocaine Screen Not Detected (Not Detect) U Marijuana (THC) Screen Not Detected (Not Detect) Ethyl Alcohol mg/dL COVID-19 ([facility]) (Negative) COVID-19 Clin Com Discharge Plan Discharge Clinical Impression: Chest pain, Anxiety and depression Patient Disposition: Still a Patient Prescriptions: No Action cholecalciferol (vitamin D3) 50 mcg (2,000 unit) capsule 50 mcg PO DAILY Qty: 90 3RF hydrocortisone [Anti-Itch (HC)] 1 % cream 1 appl topical TID PRN (Reason: skin irritation) 14 Days Qty: 28.4 1RF sennosides [Natural Senna Laxative] 8.6 mg tablet 17.2 mg PO BID Qty: 60 3RF acetaminophen [Mapap Arthritis Pain] 650 mg tablet extended release 1,300 mg PO Q8H PRN (Reason: fever or pain) 30 Days Qty: 180 0RF cromolyn 4 % drops 1 drp ophthalmic (eye) QID 5 Days Qty: 10 0RF lidocaine 5 % ointment 1 appl topical BID PRN (Reason: skin irritation) Qty: 35.44 0RF ibuprofen 600 mg tablet 600 mg PO Q8H PRN (Reason: pain) Qty: 14 0RF lidocaine 5 % adhesive patch,medicated 1 patch topical DAILY Qty: 15 0RF Rx Instructions: leave on most painful area for up to 12 hrs nitrofurantoin monohyd/m-cryst [Macrobid] 100 mg capsule 100 mg PO BID 5 Days Qty: 10 0RF Rx Instructions: must administer with a meal/food phenazopyridine [Pyridium] 200 mg tablet 200 mg PO TID 0 Days Qty: 6 0RF clotrimazole-betamethasone 1-0.05 % cream 1 appl topical BID PRN (Reason: itching) 7 Days Qty: 45 0RF fluticasone propionate [Flonase Allergy Relief] 50 mcg/actuation spray,suspension 1 spray intranasal DAILY Rx Instructions: administer into each nostril
--- NOTE | 2023-03-07 19:40 | MHC.EDTECH ---
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
--- NOTE | 2023-03-07 19:43 | ECG_ITS ---
Test Reason : si Blood Pressure : / mmHG Vent. Rate : 072 BPM Atrial Rate : 072 BPM P-R Int : 204 ms QRS Dur : 074 ms QT Int : 484 ms P-R-T Axes : 048 002 -04 degrees QTc Int : 529 ms Poor data quality Normal sinus rhythm nonspecific T wave changes Abnormal ECG When compared with ECG of 01-SEP-2022 20:25, No significant changes seen Referred By: Heidi Ventura Electronically Signed By:Rangel Nava
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
[2023-03-07 19:52] VITALS: BP 106/54; PULSE 70; RESP 16; TEMP 37.2; O2SAT 97
--- NOTE | 2023-03-07 20:07 | MHC.EDTECH ---
PATIENT EKG DONE AND WAS READ BY PROVIDER ,BLOOD DRAWN ,COVID SWAB COLLECTED AND URINE SAMPLE ,ALL SENT TO LAB ,PATIENT OBSERVER AT BEDSIDE .
[2023-03-07 20:09] LABS: MANUAL DIFF FLAG NO
[2023-03-07 20:10] LABS: Basophils Absolute Auto 0.1 X10*3/uL (0.0-0.2); Basophils Percent Auto 0.7 % (0-2); Eosinophils Absolute Auto 0.1 X10*3/uL (0.0-0.4); Eosinophils Percent Auto 0.7 % (0-4); Hemoglobin 10.3 g/dl (12.0-16.0); Imm Gran Abs Auto 0.01 X10*3/uL (0.00-0.03); Imm Gran Pct Auto 0.1 % (0.0-0.4); Lymphocytes Absolute Auto 2.9 X10*3/uL (1.2-4.9); Lymphocytes Percent Auto 38.2 % (20-40); Mean Corpuscular HGB Conc 32.2 g/dl (31.0-35.0); Mean Corpuscular Hemoglobin 26.6 pg (27.0-33.0); Mean Corpuscular Volume 82.7 fL (80.0-98.0); Mean Platelet Volume 9.5 fL (9.4-12.3); Monocytes Percent Auto 12.5 % (2-11); Neutrophils Absolute Auto 3.6 x10*3/uL (2.0-8.3); Neutrophils Percent Auto 47.8 % (45-73); Platelet Count 338 X10*3/uL (160-400); Red Blood Count 3.87 X10*6/uL (4.20-5.50); Red Cell Distribution Width 16.2 % (11.0-16.0); White Blood Count 7.6 X10*3/uL (4.8-10.8)
[2023-03-07 20:20] LABS: COVID-19 Test Negative (Negative); IDNOW Serial# 08D9AD1C
[2023-03-07 20:23] LABS: Amphetamine Screen Urine Not Detected (Not Detect); Barbiturates, Urine Not Detected (Not Detect); Benzodiazepines Screen Urine Not Detected (Not Detect); Cannabinoid Screen Urine Not Detected (Not Detect); Cocaine Screen Urine Not Detected (Not Detect); Fentanyl, urine Not Detected (Not Detect); Opiate Screen Urine Not Detected (Not Detect); Phencyclidine Screen Urine Not Detected (Not Detect)
[2023-03-07 20:36] LABS: Acetaminophen LAB < 17 mcg/mL (<30); Alanine Aminotransferase 23 U/L (0-31); Albumin Level 3.7 g/dL (3.5-5.0); Alkaline Phosphatase 64 U/L (39-117); Anion Gap 11 (12-20); Aspartate Amino Transferase 32 U/L (5-31); Bilirubin Total 0.3 mg/dL (0.0-1.0); Blood Urea Nitrogen 8 mg/dL (9-16); Calcium 8.8 mg/dL (8.4-10.2); Carbon Dioxide 24 mmol/L (22-29); Chloride 109 mmol/L (96-108); Creatinine Clr Calc Pharmacy 92.8; Estimated Glomerular Filt Rate > 60; Ethanol < 10 mg/dL; Glucose Random 103 mg/dL (60-115); Magnesium 1.9 mg/dL (1.6-2.6); Potassium 3.9 mmol/L (3.3-5.1); Salicylate < 5.0 mg/dL (15-30); Sodium 140 mmol/L (135-145); Total Protein 6.3 g/dL (6.5-8.0)
[2023-03-07 20:45] LABS: Troponin-I High Sensitivity < 2.7 ng/L (<3.5-17.0)
[2023-03-07 22:00] VITALS: BP 106/65; PULSE 63; RESP 16; TEMP 36.8; O2SAT 98
--- NOTE | 2023-03-07 22:02 | MHC.EDTECH ---
EMILY AGUIAR SAID IT WAS OKAY FOR PATIENT TO KEEP HER BELONGINGS ,SINCE PATIENT IS NOT SI OR HI .
--- NOTE | 2023-03-07 22:41 | MHC.EDTECH ---
PATIENT REPEATED TROP DRAWN AND SENT TO LAB .
[2023-03-07 23:12] LABS: Troponin-I High Sensitivity < 2.7 ng/L (<3.5-17.0)
[2023-03-08 00:16] VITALS: BP 126/75; PULSE 74; RESP 16; TEMP 36.7; O2SAT 99
--- NOTE | 2023-03-08 00:18 | PC.NURSE ---
pt denies any SI/HI, pt calm cooperative, no sign of distress. Will continue monitor.
--- NOTE | 2023-03-08 00:41 | PC.NURSE ---
Attempted to medicate pt, pt eloped, notified provider jonathan and charge nurse.
== END 2023-03-08 00:42 | disposition left against medical advice (07) ==
PROVIDERS: Physician Assistant; Emergency Provider Emergency Medicine; PCP Internal Medicine
DX: R07.89 Other chest pain (principal); F41.1 Generalized anxiety disorder; F43.0 Acute stress reaction; F33.1 Major depressive disorder, recurrent, moderate; Z20.822 Contact with and (suspected) exposure to COVID-19; Z20.828 Contact with and (suspected) exposure to other viral communicable diseases; Z87.891 Personal history of nicotine dependence; Z79.899 Other long term (current) drug therapy
CPT/HCPCS: 36415; 80053; 80143; 80179; 80307; 83735; 84484; 85025; 87635; 93005; 99283; 99284; 99285

== ENCOUNTER 2023-03-19 12:33 | Emergency (ER) | payer OTHER, SELFPAY ==
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
[2023-03-19 12:43] VITALS: BP 133/84; PULSE 94; RESP 18; TEMP 36.9; O2SAT 98; BMI 27.5
[2023-03-19 12:48] VITALS: PULSE 90
[2023-03-19] MEDS: Acetaminophen 325 MG TABLET 650 MG PO (13:49)
--- NOTE | 2023-03-19 13:52 | PC.NURSE ---
pt medicated per MAR for 07/31 left sided body/head pain
[2023-03-19 19:35] VITALS: BP 105/62; PULSE 66; RESP 16; O2SAT 98
[2023-03-19] MEDS: Cyclobenzaprine HCl 10 MG TABLET PO (19:42)
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
--- NOTE | 2023-03-19 20:49 | PC.NURSE ---
boni wrap applied to hematoma on left thigh. pt ambulated independent with a steady gait.
== END 2023-03-19 20:50 | disposition home or self-care (01) ==
PROVIDERS: Emergency Provider Emergency Medicine; PCP Internal Medicine
DX: S09.90XA Unspecified injury of head, initial encounter (principal); S70.12XA Contusion of left thigh, initial encounter; R07.89 Other chest pain; R51.9 Headache, unspecified; M54.2 Cervicalgia; M79.605 Pain in left leg; V43.52XA Car driver injured in collision with other type car in traffic accident, initial encounter; Y93.9 Activity, unspecified; Y92.410 Unspecified street and highway as the place of occurrence of the external cause; Y99.9 Unspecified external cause status; Z79.899 Other long term (current) drug therapy; Z87.891 Personal history of nicotine dependence
CPT/HCPCS: 70450; 71046; 72125; 73552; 73700; 99284

== ENCOUNTER 2023-04-12 09:44 | Outpatient (REF) | payer OTHER, SELFPAY ==
[2023-04-12 17:07] LABS: CT PCR NOT DETECTED (Not Detect.); NG PCR NOT DETECTED (Not Detect.)
[2023-04-13 05:07] LABS: Syphilis Screen Nonreactive (Nonreactive)
[2023-04-13 05:27] LABS: HBc Num1 0.07 S/CO (0.00-0.79); HIV AB/AG Nonreactive (Nonreactive); HIV Num 1 0.09 S/CO (0.00-0.99); Hepatitis B Core Antibody Nonreactive (Nonreactive); ~HepC Num1 0.25 S/CO (0.00-0.79); ~Hepatitis C Antibody Nonreactive (Nonreactive)
[2023-04-13 13:45] LABS: BV Int Neg Control Negative (Negative); BV Int Pos Control Positive (Positive)
== END 2023-04-12 09:45 | disposition home or self-care (01) ==
LOC: HO.LAB 09:44
PROVIDERS: PCP Internal Medicine; Visit Provider Advanced Practice Midwife
DX: Z01.419 Encounter for gynecological examination (general) (routine) without abnormal findings (principal); N39.41 Urge incontinence; Z80.3 Family history of malignant neoplasm of breast; Z80.41 Family history of malignant neoplasm of ovary; Z20.2 Contact with and (suspected) exposure to infections with a predominantly sexual mode of transmission
CPT/HCPCS: 0353U; 86704; 86780; 86803; 87389; 87480; 87510; 87660

== ENCOUNTER 2023-04-12 11:06 | Outpatient (REF) | payer OTHER, SELFPAY | END 2023-04-12 11:07 | disposition home or self-care (01) | LOC: HO.LNP 11:06 | PROVIDERS: Visit Provider Advanced Practice Midwife | DX: Z13.89 Encounter for screening for other disorder (principal) ==

== ENCOUNTER 2023-04-22 07:11 | Emergency (ER) | payer OTHER, SELFPAY ==
[2023-04-22 07:17] VITALS: BP 126/54; PULSE 74; RESP 18; TEMP 36.5; O2SAT 95; BMI 28.3
[2023-04-22 07:25] VITALS: BP 130/71; PULSE 73; RESP 18; TEMP 36.7; O2SAT 100
[2023-04-22 07:34] VITALS: BP 130/71; PULSE 71; RESP 14; O2SAT 100
--- NOTE | 2023-04-22 07:35 | PC.NURSE ---
Addendum entered by Doris Moeller 04/22/23 07:44: headache was not relieved with tylenol administration, pt comes in feeling dizzy accompanied with weakness that worsens upon movement. Original Note: pt a&ox3, vss, placed on cardiac rehab nurse showing nsr, states 10/10 headache located on the top of her head, hyperactive bs noted upon auscultation, no tenderness or distension note upon palpated, emesis bag placed beside, call cui within reach, will continue to monitor.
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
[2023-04-22 10:00] VITALS: BP 111/64; PULSE 69; RESP 19; TEMP 36.4; O2SAT 100
--- NOTE | 2023-04-22 10:12 | PC.NURSE ---
vss, nsr on patient monitor, pt states a 9/10 pain headache but claims that she has more dizziness than she does pain, IVF and medications administered per provider order.
[2023-04-22 11:09] VITALS: BP 108/67; PULSE 70; RESP 14
[2023-04-22 11:10] VITALS: BP 103/68; PULSE 69; RESP 15; O2SAT 100
--- NOTE | 2023-04-22 11:12 | PC.NURSE ---
a&ox3, vss, nsr on laboratory monitor, pt verbalizes pain decrease to a 4/10 and less dizziness upon medication/IVF administration, IVF finished/disconnected, call cui placed within reach, will continue to monitor.
== END 2023-04-22 11:59 | disposition home or self-care (01) ==
PROVIDERS: Emergency Provider Emergency Medicine Emergency Medical Services; PCP Internal Medicine
DX: H81.12 Benign paroxysmal vertigo, left ear (principal); R51.9 Headache, unspecified; R11.2 Nausea with vomiting, unspecified
CPT/HCPCS: 96361; 96374; 96375; 99284; 99285; J1200; J1885; J2765

== ENCOUNTER 2023-04-30 12:59 | Outpatient (AMB) | payer OTHER, SELFPAY ==
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
[2023-04-30 13:02] VITALS: BP 110/70; BMI 28.0
== END 2023-04-30 13:38 | disposition home or self-care (01) ==
PROVIDERS: PCP Internal Medicine; Visit Provider Nurse Practitioner Family
DX: R63.1 Polydipsia (principal); M54.9 Dorsalgia, unspecified
CPT/HCPCS: 81003; 99213

== ENCOUNTER 2023-05-01 08:06 | Outpatient (REF) | payer OTHER, SELFPAY ==
[2023-05-01 08:28] LABS: MANUAL DIFF FLAG NO
[2023-05-01 08:31] LABS: Basophils Percent Auto 0.5 % (0-2); Eosinophils Absolute Auto 0.1 X10*3/uL (0.0-0.4); Eosinophils Percent Auto 0.9 % (0-4); Hemoglobin 10.8 g/dl (12.0-16.0); Imm Gran Abs Auto 0.01 X10*3/uL (0.00-0.03); Imm Gran Pct Auto 0.2 % (0.0-0.4); Lymphocytes Percent Auto 35.7 % (20-40); Mean Corpuscular HGB Conc 31.8 g/dl (31.0-35.0); Mean Corpuscular Hemoglobin 26.2 pg (27.0-33.0); Mean Corpuscular Volume 82.5 fL (80.0-98.0); Mean Platelet Volume 9.5 fL (9.4-12.3); Monocytes Absolute Auto 0.6 X10*3/uL (0.1-1.2); Monocytes Percent Auto 10.7 % (2-11); Platelet Count 370 X10*3/uL (160-400); Red Blood Count 4.12 X10*6/uL (4.20-5.50); Red Cell Distribution Width 18.3 % (11.0-16.0); White Blood Count 5.7 X10*3/uL (4.8-10.8)
[2023-05-01 08:39] LABS: Estimated Average Glucose 105 mg/dL; Hemoglobin A1c % 5.3 %
[2023-05-01 09:14] LABS: Appearance Urine Clear; Color Urine Yellow; Glucose Urine UA Negative (Negative); Leukocyte Esterase Urine Negative (Negative); Nitrite Urine Negative (Negative); PH 7.5 (5.0-9.0); Specific Gravity - Urine 1.015 (1.005-1.025); Urine Blood Negative (Negative); Urine Ketones Negative (Negative); Urine Protein Negative (Neg-Trace)
[2023-05-01 09:16] LABS: Alanine Aminotransferase 19 U/L (0-31); Albumin Level 3.7 g/dL (3.5-5.0); Alkaline Phosphatase 66 U/L (39-117); Anion Gap 10 (12-20); Aspartate Amino Transferase 23 U/L (5-31); Bilirubin Total 0.4 mg/dL (0.0-1.0); Blood Urea Nitrogen 8 mg/dL (9-16); Calcium 9.1 mg/dL (8.4-10.2); Carbon Dioxide 25 mmol/L (22-29); Chloride 106 mmol/L (96-108); Cholesterol 170 mg/dL; Estimated Glomerular Filt Rate > 60; Glucose Fasting 93 mg/dL (60-99); HDL Cholesterol 41 mg/dL; LDL Cholesterol Calculated 112 mg/dl; Potassium 4.2 mmol/L (3.3-5.1); Sodium 137 mmol/L (135-145); Total Protein 6.7 g/dL (6.5-8.0); Triglycerides 89 mg/dL
[2023-05-01 09:32] LABS: TSH reflex Free T4 1.62 uIU/mL (0.32-4.0)
== END 2023-05-01 08:07 | disposition home or self-care (01) ==
LOC: HO.LAB 08:06
PROVIDERS: PCP Internal Medicine; Visit Provider Nurse Practitioner Family
DX: R63.1 Polydipsia (principal); Z13.29 Encounter for screening for other suspected endocrine disorder; Z13.0 Encounter for screening for diseases of the blood and blood-forming organs and certain disorders involving the immune mechanism; Z13.220 Encounter for screening for lipoid disorders
CPT/HCPCS: 36415; 80053; 80061; 81003; 83036; 84443; 85025

== ENCOUNTER 2023-06-04 11:07 | Outpatient (AMB) | payer OTHER, SELFPAY ==
--- NOTE | 2023-06-04 03:28 | A.OFFVIS_ITS ---
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 06/04/2023-- She states that when she was young, she has had kidney infections. She had inflammation of the kidneys few years ago. She denies any recent kidney or bladder infections. She reports urinary leakage associated with urgency. She had an episode of urine leakage when she passed flatus. She reports constipation. Some laakage associated with cough/laugh 3 Question Incont questionnaire - suggestive of predomininate urge incont I reviewed the results of the CAT scan of the abdomen/pelvis done on 12/10/2022?kidneys were normal, no hydronephrosis noted. Evaluation today UA: leukocytes: negative; Blood: negative; bladder scan post void residual: 34mL. Plan: Trial of antimuscarinic. Started on Myrbetriq 50 mg dialy. Follow up in 8-10 weeks. [facility] Medical History Adult celiac disease Anemia Anxiety and depression Blurry vision Chest pain Constipation by delayed colonic transit Depression GERD (gastroesophageal reflux disease) Herpes History of celiac disease Hx of chronic kidney disease Hx of constipation Hx of gastroesophageal reflux (GERD) Internal and external prolapsed hemorrhoids Mild recurrent major depression PAC (premature atrial contraction) Physical exam Polyarthralgia Urgency incontinence Surgical History Hx of section Hx of varicose vein ligation and stripping Family History Mother Hx of diabetes mellitus Hx of hypertensive heart disease Father Hx of diabetes mellitus Hx of hypertensive heart disease Paternal Uncle History of colon cancer Maternal Grandmother Cancer Daughter No problems noted. Sister No problems noted. Son No problems noted. Son No problems noted. Brother No problems noted. Paternal Grandfather History of colon cancer Social History Household Members: None Housing: Apartment Alcohol intake: never Patient Tobacco Use Status: Former Tobacco user Tobacco use type: Cigarette e-Cigarette/Vaping Use: Never Used Second Hand Smoke Exposure: No service: No Current occupational status: employed Current occupational exposures/hazards: No Cognitive needs: No Hearing needs: No Vision needs: No Female Reproductive History Menstrual Age of Menarche: 11 Review of Systems Const All systems reviewed & are unremarkable except as noted in HPI and below Reports no additional complaints Eyes Reports no additional complaints ENT Reports no additional complaints Card Denies dyspnea Resp Denies cough and Denies dyspnea GI Reports no additional complaints Reports no additional complaints Musc Reports no additional complaints Skin/Breast Denies rash and Denies unusual bruising Neuro Reports no additional complaints Psych Reports no additional complaints Endo Reports no additional complaints James/Lymph Reports no additional complaints Aller/Immun Reports no additional complaints Physical Exam Const General: cooperative, healthy appearing and no acute distress Orientation/consciousness: patient oriented x3 HEENT Head: Yes normal to inspection, Yes normocephalic and Yes atraumatic Eyes Conjunctivae: conjunctivae normal Neck Neck: Yes normal visual inspection and Yes trachea midline Chest Chest palpation & inspection: normal inspection of the chest Resp Effort & Inspection: normal respiratory effort Cardio Rate: regular rate GI Inspection: Yes normal to inspection Palpation (GI): Soft to palpation Skin General skin exam: no rashes or lesions noted Neuro General: patient oriented x3 Extrem General: No edema Psych Appearance: grossly normal Office Procedures Post Void Residual Post Residual Void Post Void Residual (PVR): 34 [id number] Void Residual by ultrasound Results AMB Urinalysis, Automated UA Leukoctes 0 Jean Claude/uL Last Edit by AVA Jaquez on 06/04/23 11:24 UA Nitrite Negative Last Edit by Rosibel Harrington Saji on 06/04/23 11:24 UA Urobilinogen 0.2 mg/dL Last Edit by Rosibel Harrington Saji on 06/04/23 11:2 4 UA Protein 0 mg/dL Last Edit by Rosibel Harrington A on 06/04/23 11:24 UA pH 6.0 Last Edit by Rosibel Harrington [facility] on 06/04/23 11:24 UA Blood 0 Geoff/uL Last Edit by Rosibel Harrington A on 06/04/23 11:24 UA Specific [place] 1.010 Last Edit by Rosibel Harrington [facility] on 06/04/23 11: 24 UA Ketone Last Edit by Rosibel Harrington [facility] on 06/04/23 11:24 UA Bilirubin 0 mg/dL Last Edit by Rosibel Harrington [facility] on 06/04/23 11:24 UA Glucose 0 mg/dL Last Edit by Rosibel Harrington [facility] on 06/04/23 11:24 Results Reviewed Results Reviewed: Laboratory Last Values Urine pH (Auto) 6.0 06/04/23 11:15 Specific [place] (Auto) 1.010 06/04/23 11:15 Urine Protein (Auto) 0 mg/dL 06/04/23 11:15 Glucose (UA)(Auto) 0 mg/dL 06/04/23 11:15 Urine Blood (Auto) 0 Geoff/uL 06/04/23 11:15 Urine Nitrite (Auto) Negative 06/04/23 11:15 Urine Bilirubin (Auto) 0 mg/dL 06/04/23 11:15 Urine Urobilinogen (Auto) 0.2 mg/dL 06/04/23 11:15 Leukocyte Esterase (Auto) 0 Jean Claude/uL 06/04/23 11:15 Date of Service: 12/10/22 EXAMINATION: CT ABDOMEN AND PELVIS WITHOUT CONTRAST? CLINICAL INFORMATION: Epigastric pain? COMPARISON: Previous CT of the abdomen and pelvis most recent April 2021 FINDINGS: LUNG BASES: The visualized lung bases are unremarkable.? LIVER, GALLBLADDER, AND BILIARY TREE: The liver is normal in size, shape, and attenuation. No focal hepatic lesion or biliary ductal dilatation is present. The gallbladder is unremarkable with no evidence of radiopaque gallstones, gallbladder wall thickening, or obvious pericholecystic inflammatory changes.? PANCREAS: Unremarkable.? SPLEEN: Unremarkable.? ADRENAL GLANDS: Unremarkable.? KIDNEYS AND URETERS: The kidneys are normal in size, shape, and attenuation. No hydronephrosis, hydroureter, or calculi seen. No perinephric stranding. ? BLADDER: Unremarkable.? GASTROINTESTINAL TRACT: Stool throughout the colon questionable for constipation. The small and large bowel are unremarkable. The appendix is unremarkable.? ABDOMINAL WALL: Small umbilical hernia containing fat. LYMPH NODES: Normal. VASCULAR: Unremarkable. PELVIC VISCERA: Unremarkable.? OSSEOUS STRUCTURES: Unremarkable.? IMPRESSION: Mild constipation. Small umbilical hernia containing fat. Assessment & Plan Assessment & Plan (1) Urgency incontinence: Code(s): N39.41 - Urge incontinence (2) OAB (overactive bladder): Code(s): N32.81 - Overactive bladder Plan Started on Myrbetriq 50 mg dialy. Trial of antimuscarinic. Follow up in 8-10 weeks. Orders: Orders AMB Urinalysis Automated Today Z13.9 - Encounter for screening, unspecified AMB Post Void Residual by ultrasound Today N39.8 - Other specified disorders of urinary system Medications: New mirabegron ER (Myrbetriq) 50 mg PO DAILY 90 tabs 2RF Patient Instructions: The patient had an opportunity to ask questions regarding treatment plan. All questions were answered. Imaging, Laboratory studies and physical exam results were discussed and reviewed in detail. No major barriers to understanding were identified. The patient expressed understanding and agreement with the above treatment plan.? ? ? The patient is aware they should contact our office by phone for worsening of their current condition or the appearance of new symptoms. Compliance is encouraged with any medications and followup testing that is ordered.? ? ? It is a privilege to be allowed the opportunity to participate in the urologic care of your patient. If you have any questions or concerns regarding treatment for the above conditions please do not hesitate to contact me. The office telephone contact is [phone].? ? ? This note is constructed in part using voice recognition software. While every effort has been made to ensure accuracy district court reporter errors may have been included.? ? ? Yours sincerely,? ? ? Alexandra Stevenson MD? Coding Level of Care Code New Pt Level 4 (99011) Diagnoses Urgency incontinence N39.41 OAB (overactive bladder) N32.81 CPT Codes Post Residual Void - PVR CPT Code: 33994-Fcnu Void Residual by ultrasound ([id number])
== END 2023-06-04 11:34 | disposition home or self-care (01) ==
PROVIDERS: PCP Internal Medicine; Visit Provider Urology
DX: N39.41 Urge incontinence (principal); N32.81 Overactive bladder
CPT/HCPCS: 99204

== ENCOUNTER → 2023-06-04 11:07 | Outpatient (BNVA) | payer OTHER, SELFPAY | PROVIDERS: PCP Internal Medicine; Visit Provider Urology | DX: N39.41 Urge incontinence (principal); N32.81 Overactive bladder | CPT/HCPCS: 51798; 99202 ==

== ENCOUNTER 2023-06-27 14:12 | Outpatient (AMB) | payer OTHER, SELFPAY ==
[2023-06-27 14:17] VITALS: BP 112/70; BMI 28.0
--- NOTE | 2023-06-27 14:17 | A.OFFPC_ITS ---
Vital Signs 06/27/23 14:17 Height 5 ft 4 in Weight 163 lb BMI 28.0 BP 112/70 Blood Pressure Location Lt brachial Position Sitting Intake Visit Reasons: PE Intake Note: Patient here for a physical exam Sander Wooden Pencils Required: No Accompanied by: Self / Same As Patient Allergies gluten [GLUTEN] Allergy (Intermediate, Verified 06/27/23 14:31) CELIAC DISEASE Penicillins [PENICILLINS] Allergy (Intermediate, Verified 06/27/23 14:31) AGITATION Medication List - Last Reconciled 06/27/23 by Sisi Alford MD acetaminophen ER (Mapap Arthritis Pain) 1,300 mg (2 x 650 mg) PO Q8H PRN 30 days cholecalciferol (vitamin D3) 50 mcg PO DAILY clotrimazole-betamethasone 1-0.05 % 1 appl topical BID PRN 7 days cromolyn 4% 1 drp ophthalmic (eye) QID 5 days cyclobenzaprine 5 mg PO TID PRN escitalopram oxalate 10 mg PO DAILY 90 days ferrous sulfate 325 mg PO DAILY 90 days fluticasone propionate 50 mcg/actuation (Flonase Allergy Relief) 1 spray intranasal DAILY 30 days hydrocortisone 1% (Anti-Itch (hydrocortisone)) 1 appl topical TID PRN 2 weeks ibuprofen 600 mg PO Q8H PRN lidocaine 5% 1 patch topical DAILY meclizine (Dramamine Less Drowsy) 25 mg PO TID PRN metronidazole 0.75%(37.5mg/5gram) 1 appful vaginal BEDTIME 5 days mirabegron ER (Myrbetriq) 50 mg PO DAILY ondansetron 4 mg PO Q6-8H PRN sennosides (Natural Senna Laxative) 17.2 mg (2 x 8.6 mg) PO BID Tobacco use date assessed: 04/30/23 Dental Screening Dental Screen Date: 06/27/23 Did you have a dental visit in the last 12 months?: No Did you have a dental problem in the last 6 months where you did not have access to dental care?: No Was dental information given to patient?: Patient has dentist HPI HPI Comments History of Present Illness Details This is a 52-year-old female that comes for her physical exam. Last Pap smear was 2019. Last mammogram was September 2022 and was normal. Last colonoscopy was 2018. Aware that has mild arthritis in left knee and small umbilical hernia. Denies any depression at the moment and said that pain has improved most likely pointing to fibromyalgia. No chest pain or shortness of breath. [facility] Medical History Adult celiac disease Anemia Anxiety and depression Blurry vision Chest pain Constipation by delayed colonic transit Depression GERD (gastroesophageal reflux disease) Herpes History of celiac disease Hx of chronic kidney disease Hx of constipation Hx of gastroesophageal reflux (GERD) Internal and external prolapsed hemorrhoids Mild recurrent major depression PAC (premature atrial contraction) Physical exam Polyarthralgia Urgency incontinence Surgical History Hx of section Hx of varicose vein ligation and stripping Family History Mother Hx of diabetes mellitus Hx of hypertensive heart disease Father Hx of diabetes mellitus Hx of hypertensive heart disease Paternal Uncle History of colon cancer Maternal Grandmother Cancer Daughter No problems noted. Sister No problems noted. Son No problems noted. Son No problems noted. Brother No problems noted. Paternal Grandfather History of colon cancer Social History (Updated 06/27/23 @ 14:35 by Sisi Alford MD) Household Members: None Housing: Apartment Alcohol intake: never Patient Tobacco Use Status: Former Tobacco user Tobacco use type: Cigarette e-Cigarette/Vaping Use: Never Used Second Hand Smoke Exposure: No service: No Current occupational status: employed Current occupational exposures/hazards: No Cognitive needs: No Hearing needs: No Vision needs: No Female Reproductive History Menstrual Age of Menarche: 11 Questionnaire Thrive Questionnaire Date Thrive assessed: 12/20/22 RIKA-7 AMB Questionnaire RIKA-7 Date RIKA - 7 assessed: 12/20/22 Source: Developed by Drs. Reynaldo Diallo, Amirah Cloud, Cristobal Barahona and colleagues, with an educational kacy from [employer]. Review of Systems Const All systems reviewed & are unremarkable except as noted in HPI and below Eyes Reports no additional complaints, Denies change in vision and Denies other visual disturbances Card Denies chest pain at rest, Denies chest pain with activity, Denies edema, Denies irregular heart rhythm, Denies claudication, Denies dyspnea, Denies dyspnea on exertion, Denies orthopnea, Denies paroxysmal nocturnal dyspnea and Denies slow heart rate Resp Denies cough, Denies dyspnea and Denies dyspnea on exertion GI Denies abdominal pain, Denies change in bowel habits, Denies excessive flatus, Denies nausea and Denies vomiting Denies urinary incontinence, Denies urinary hesitancy and Denies urinary urgency Musc Denies abnormal gait, Denies atrophy, Denies deformity and Denies limited range of motion Skin/Breast Denies bleeding lesions, Denies changing lesions and Denies rash Neuro Denies abnormal gait, Denies confusion and Denies lack of coordination Psych Denies confusion Physical exam (Primary Care) Vital Signs: Last Vital Signs BP 112/70 06/27/23 14:17 BMI result Body Mass Index 28.0 Tobacco/Smoking Status: Tobacco use Status Tobacco use date assessed 04/30/23 06/27/23 14:20 Patient Tobacco Use Status Former Tobacco user 06/27/23 14:35 Tobacco use type Cigarette 06/27/23 14:35 e-Cigarette/Vaping Use Never Used 06/27/23 14:35 Thrive Assessment: Date of Thrive Assessment Date Thrive assessed 12/20/22 06/27/23 14:20 Const General: No confusion Orientation/consciousness: patient oriented x3 and No confusion HENMT Head: Yes normal to inspection, Yes normocephalic and Yes atraumatic Ears: external ears normal Eyes General: appearance normal, both eyes and all related structures Eyelids: Yes eyelids normal Conjunctivae: conjunctivae normal Neck Neck: Yes normal visual inspection and Yes supple Resp Effort & Inspection: normal respiratory effort Auscultation: clear to auscultation bilaterally Cardio Jugular venous distension: no JVD Rate: regular rate Rhythm: regular rhythm Heart sounds: S1 normal heart sound present and S2 normal heart sound present GI Inspection: Yes normal to inspection Palpation (GI): Soft to palpation and nontender Auscultation: normal bowel sounds Skin General skin exam: no rashes or lesions noted Neuro General: patient oriented x3, no focal motor deficits and No confusion Extrem General: Yes full ROM Psych Appearance: grossly normal Assessment and Plan Assessment & Plan (1) Physical exam: Code(s): Z00.00 - Encounter for general adult medical examination without abnormal findings Plan: Repeat in a year Medications: Changed From fluticasone propionate 50 mcg/actuation (Flonase Allergy Relief) administer into each nostril 1 spray intranasal DAILY To fluticasone propionate 50 mcg/actuation (Flonase Allergy Relief) administer into each nostril 1 spray intranasal DAILY 16 grams 1RF 30 days Refilled acetaminophen ER (Mapap Arthritis Pain) 1,300 mg (2 x 650 mg) PO Q8H PRN 180 tabs 0RF fever or pain 30 days cholecalciferol (vitamin D3) 50 mcg PO DAILY 90 caps 3RF R79.89 - Other specified abnormal findings of blood chemistry clotrimazole-betamethasone 1-0.05 % 1 appl topical BID PRN 45 grams 0RF itching 7 days cyclobenzaprine 5 mg PO TID PRN 20 tabs 0RF muscle spasm M54.9 - Dorsalgia, unspecified escitalopram oxalate 10 mg PO DAILY 90 tabs 1RF 90 days ferrous sulfate 325 mg PO DAILY 90 tabs 0RF 90 days hydrocortisone 1% (Anti-Itch (hydrocortisone)) 1 appl topical TID PRN 28.4 grams 1RF skin irritation 2 weeks K64.8 - Other hemorrhoids ibuprofen 600 mg PO Q8H PRN 14 tabs 0RF pain lidocaine 5% leave on most painful area for up to 12 hrs 1 patch topical DAILY 15 ea 0RF meclizine (Dramamine Less Drowsy) 25 mg PO TID PRN 30 tabs 0RF dizziness mirabegron ER (Myrbetriq) 50 mg PO DAILY 90 tabs 2RF ondansetron 4 mg PO Q6-8H PRN 14 tabs 0RF nausea and vomiting sennosides (Natural Senna Laxative) 17.2 mg (2 x 8.6 mg) PO BID 60 tabs 3RF constipation K59.00 - Constipation, unspecified Discontinued lidocaine 5% Discontinued Reason: Patient Completed Course 1 appl topical BID PRN 35.44 grams 0RF skin irritation ibuprofen Discontinued Reason: Patient Completed Course 400 mg PO TID PRN 30 tabs 0RF fever or pain Coding Level of Care Code Est Pt Prev Care 40-64y(70567) Diagnoses Physical exam Z00.00 Time Spent (min) 32
== END 2023-06-27 14:45 | disposition home or self-care (01) ==
PROVIDERS: PCP Internal Medicine; Visit Provider Internal Medicine
DX: Z00.00 Encounter for general adult medical examination without abnormal findings (principal)
CPT/HCPCS: 99396

== ENCOUNTER 2023-07-06 09:50 | Outpatient (REF) | payer OTHER, SELFPAY ==
[2023-07-06 11:58] LABS: Lipase 55 U/L (8-78)
[2023-07-11 18:38] LABS: Transglutaminase Ab IgG 1.6 U/mL; Transglutaminase IgA >250.0 U/mL
== END 2023-07-06 09:51 | disposition home or self-care (01) ==
LOC: HO.LAB 09:50
PROVIDERS: PCP Internal Medicine; Visit Provider Nurse Practitioner Family
DX: R10.13 Epigastric pain (principal); R10.9 Unspecified abdominal pain; K59.04 Chronic idiopathic constipation
CPT/HCPCS: 36415; 83690; 86364; 99212

== ENCOUNTER 2023-07-06 09:50 | Outpatient (AMB) | payer OTHER, SELFPAY ==
--- NOTE | 2023-07-06 09:58 | A.OFFVIS_ITS ---
Intake Vital Signs 07/06/23 09:59 Height 5 ft 4 in Weight 162 lb BMI 27.8 BP 108/65 Blood Pressure Location Lt brachial Position Sitting Pulse 76 Intake Visit Reasons: 6 month follow up Intake Note: Patient follow up for celiac disease. Patient cc: loose weight and no appetite, denies any other GI issues. Certified Orthoptist Required: Yes Certified Orthoptist Name: [facility] [place] Accompanied by: Self / Same As Patient Allergies gluten [GLUTEN] Allergy (Intermediate, Verified 07/06/23 09:56) CELIAC DISEASE Penicillins [PENICILLINS] Allergy (Intermediate, Verified 07/06/23 09:56) AGITATION HPI 6 month follow up HPI Details LAST VISIT: Constipation by delayed colonic transit Continue taking Senokot. Patient was encouraged to increase fluid intake and activity to promote better bowel motility. Adult celiac disease Continue avoiding gluten products. Discussed with patient epigastric discomfort could be related to food contaminated. Discussed with patient using lorene gluten free when going grocery shopping. Epigastric discomfort Patient was seen for epigastric discomfort back in November. Patient reports that she has been doing better. Discussed with patient avoiding dietary triggers pressure a gluten containing food. CT scan done in the ER showed constipation. Patient can continue taking senna daily. I will see her in 6 months. Will repeat transglutaminase to check for compliance. Patient is agreeable to this plan and verbalizes understanding of instructions. She was given the opportunity to ask questions and all questions answered. TODAY'S VISIT Patient is here today for follow-up. Patient reports that she has been feeling better. Patient reports that she is moving her bowels better taking 2 Senokot in the morning and 2 in the evening. Patient denies melena, hematochezia, unintentional weight loss or ribbon like stools. Patient denies dyspepsia, dysphagia or odynophagia. Patient is moving her bowels better and now her acid reflux symptoms have improved. Patient had colonoscopy in October of 2018 and will be due to go for colonoscopy next year in October. Patient reports occasional postprandial abdominal bloating ? [facility] Medical History Adult celiac disease Anemia Anxiety and depression Blurry vision Chest pain Constipation by delayed colonic transit Depression GERD (gastroesophageal reflux disease) Herpes History of celiac disease Hx of chronic kidney disease Hx of constipation Hx of gastroesophageal reflux (GERD) Internal and external prolapsed hemorrhoids Mild recurrent major depression PAC (premature atrial contraction) Physical exam Polyarthralgia Urgency incontinence Surgical History Hx of varicose vein ligation and stripping Hx of section Family History Mother Hx of diabetes mellitus Hx of hypertensive heart disease Father Hx of diabetes mellitus Hx of hypertensive heart disease Paternal Uncle History of colon cancer Maternal Grandmother Cancer Daughter No problems noted. Sister No problems noted. Son No problems noted. Son No problems noted. Brother No problems noted. Paternal Grandfather History of colon cancer Social History Household Members: None Housing: Apartment Alcohol intake: never Patient Tobacco Use Status: Former Tobacco user Tobacco use type: Cigarette e-Cigarette/Vaping Use: Never Used Second Hand Smoke Exposure: No service: No Current occupational status: employed Current occupational exposures/hazards: No Cognitive needs: No Hearing needs: No Vision needs: No Female Reproductive History Menstrual Age of Menarche: 11 Review of Systems Const Denies weight gain and Denies weight loss ENT Reports no additional complaints, Denies dysphagia and Denies odynophagia Card Reports no additional complaints Resp Reports no additional complaints GI Denies abdominal pain, Denies belching, Denies melena, Denies bloating, Reports constipation (Occasional), Denies dysphagia, Denies excessive flatus, Denies dyspepsia, Denies heartburn, Denies diarrhea, Denies loose stools, Denies nausea, Denies odynophagia and Denies vomiting Reports no additional complaints Musc Reports no additional complaints Neuro Reports no additional complaints Psych Reports no additional complaints Endo Reports no additional complaints Physical Exam Vital Signs: Last Vital Signs Pulse 76 07/06/23 09:59 BP 108/65 07/06/23 09:59 BMI result Body Mass Index 27.8 Const General: healthy appearing, no acute distress and well developed Nutritional Appearance: well nourished Orientation/consciousness: patient oriented x3 HEENT Head: Yes normal to inspection, Yes normocephalic and Yes atraumatic Face and sinus: Yes normal facial exam Mouth: Normal oral and palatal mucosa present Throat: Yes posterior oropharynx normal, Yes tonsils normal and Yes uvula midline Eyes General: appearance normal, both eyes and all related structures Neck Neck: Yes normal visual inspection, Yes full ROM and Yes trachea midline Thyroid: Thyroid normal Resp Effort & Inspection: normal respiratory effort, able to speak in complete sentences, no tracheal deviation and symmetric chest movement Auscultation: clear to auscultation bilaterally Cardio Rate: regular rate Heart sounds: S1 normal heart sound present and S2 normal heart sound present GI Inspection: Yes normal to inspection, No distended and Yes obesity Palpation (GI): Soft to palpation, not firm, nontender and No hepatosplenomegaly present Auscultation: normal bowel sounds General: Yes no CVA tenderness Back/Spine/Pelvis Back: no CVA tenderness Skin General skin exam: elasticity normal, turgor normal and dry skin Neuro General: patient oriented x3 Psych Appearance: grossly normal Mental Status: mental status grossly normal Speech and movement: Normal speech and movement present Assessment & Plan Assessment & Plan (1) Chronic idiopathic constipation: Code(s): K59.04 - Chronic idiopathic constipation Plan: Patient will continue Senokot in the evening and will take MiraLax in the morning. Patient was encouraged to increase fluid intake and activity to promote better bowel motility. (2) Adult celiac disease: Code(s): K90.0 - Celiac disease Plan: Patient was diagnosed with celiac disease on upper endoscopy in 2019. Patient reports that she does the best that she can with avoiding gluten. Patient reports feeling tired of all you looking at the things that she is eating. Sub 1st patient feels like she does not want a avoid bread. (3) Epigastric pain: Code(s): R10.13 - Epigastric pain Plan: Patient reports that she is feeling better now that she is moving her bowels better. Patient states that her symptoms of epigastric discomfort subsided since she is moving her bowels better now. I will see patient in 2 months we will discuss going for colonoscopy and upper endoscopy. Will check transglutaminase and lipase. Patient is agreeable to this plan and verbalizes understanding of instructions. She was given the opportunity to ask questions and all questions answered. Thank you for allowing me to participate in her care Orders: Orders Transglutaminase Ab IgG Today R10.9 - Unspecified abdominal pain Transglutaminase IgA Today R10.9 - Unspecified abdominal pain Lipase Today R10.9 - Unspecified abdominal pain Medications: New polyethylene glycol 3350 (Miralax) 17 grams PO DAILY 510 grams 2RF Changed From sennosides (Natural Senna Laxative) 17.2 mg (2 x 8.6 mg) PO BID 60 tabs 3RF constipation K59.00 - Constipation, unspecified To sennosides (Natural Senna Laxative) 17.2 mg (2 x 8.6 mg) PO BEDTIME 180 tabs 3RF constipation K59.00 - Constipation, unspecified Coding Level of Care Code Est Pt Level 3 (89751) Diagnoses Chronic idiopathic constipation K59.04 Adult celiac disease K90.0 Epigastric pain R10.13 Time Spent (min) 25 Comment 15 minutes spent with patient and additional 10 minutes spent reviewing her records
[2023-07-06 09:59] VITALS: BP 108/65; PULSE 76; BMI 27.8
== END 2023-07-06 10:22 | disposition home or self-care (01) ==
PROVIDERS: PCP Internal Medicine; Visit Provider Nurse Practitioner Family
DX: K59.04 Chronic idiopathic constipation (principal)
CPT/HCPCS: 99213

== ENCOUNTER 2023-09-05 14:17 | Outpatient (AMB) | payer OTHER, SELFPAY ==
--- NOTE | 2023-09-05 14:25 | MHC.OFFVIS ---
Intake Vital Signs 09/05/23 14:27 Height 5 ft 4 in Weight 164 lb BMI 28.1 BP 98/61 Blood Pressure Location Lt brachial Position Sitting Pulse 67 Intake Visit Reasons: 2 month follow up Intake Note: Patient follow up for Constipation Patient cc: constipation on and off, denies any other GI ISSUES. 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 Patient was encouraged to increase fluid intake and activity to promote better bowel motility. Adult celiac disease Patient was diagnosed with celiac disease on upper endoscopy in 2019. Patient reports that she does the best that she can with avoiding gluten. Patient reports feeling tired of all you looking at the things that she is eating. Sub 1st patient feels like she does not want a avoid bread. Epigastric pain Patient reports that she is feeling better now that she is moving her bowels better. Patient states that her symptoms of epigastric discomfort subsided since she is moving her bowels better now. I will see patient in 2 months we will discuss going for colonoscopy and upper endoscopy. Will check transglutaminase and lipase. Patient is agreeable to this plan and verbalizes understanding of instructions. She was given the opportunity to ask questions and all questions answered. ? Thank you for allowing me to participate in her care Plan Orders Orders Transglutaminase Ab IgG Today R10.9 Transglutaminase IgA Today R10.9 Lipase Today R10.9 Medications New polyethylene glycol 3350 (Miralax) 17 grams PO DAILY 510 grams 2RF Changed Changed From sennosides (Natural Senna Laxative) 17.2 mg (2 x 8.6 mg) PO BID 60 tabs 3RF constipation K59.00 Changed To sennosides (Natural Senna Laxative) 17.2 mg (2 x 8.6 mg) PO BEDTIME 180 tabs 3RF constipation K59.00 TODAY'S VISIT: Patient is here today for follow-up. Patient reports that she has been doing much better. Take Senokot and is moving her bowels well. Patient denies any dyspepsia, dysphagia or odynophagia. Patient denies any nausea or vomiting. Patient reports that she has been doing her best trying to stay away from gluten. Patient denies any melena, hematochezia, unintentional weight loss or ribbon like stools. Will book patient for colonoscopy and upper endoscopy. Patient denies any GI concerning symptoms today. [facility] Medical History Adult celiac disease Anemia Anxiety and depression Blurry vision Chest pain Constipation by delayed colonic transit Depression GERD (gastroesophageal reflux disease) Herpes History of celiac disease Hx of chronic kidney disease Hx of constipation Hx of gastroesophageal reflux (GERD) Internal and external prolapsed hemorrhoids Mild recurrent major depression PAC (premature atrial contraction) Physical exam Polyarthralgia Urgency incontinence Surgical History Hx of varicose vein ligation and stripping Hx of section Family History Mother Hx of diabetes mellitus Hx of hypertensive heart disease Father Hx of diabetes mellitus Hx of hypertensive heart disease Paternal Uncle History of colon cancer Maternal Grandmother Cancer Daughter No problems noted. Sister No problems noted. Son No problems noted. Son No problems noted. Brother No problems noted. Paternal Grandfather History of colon cancer Social History Household Members: None Housing: Apartment Alcohol intake: never Patient Tobacco Use Status: Former Tobacco user Tobacco use type: Cigarette e-Cigarette/Vaping Use: Never Used Second Hand Smoke Exposure: No service: No Current occupational status: employed Current occupational exposures/hazards: No Cognitive needs: No Hearing needs: No Vision needs: No Female Reproductive History Menstrual Age of Menarche: 11 Review of Systems Const Denies weight gain and Denies weight loss ENT Reports no additional complaints, Denies dysphagia and Denies odynophagia Card Reports no additional complaints Resp Reports no additional complaints GI Denies abdominal pain, Denies belching, Denies melena, Denies bloating, Denies change in bowel habits, Denies dysphagia, Denies excessive flatus, Denies dyspepsia, Denies heartburn, Denies diarrhea, Denies loose stools, Denies nausea, Denies odynophagia and Denies vomiting Musc Reports no additional complaints Neuro Reports no additional complaints Psych Reports no additional complaints Endo Reports no additional complaints Physical Exam Vital Signs: Last Vital Signs Pulse 67 09/05/23 14:27 BP 98/61 09/05/23 14:27 BMI result Body Mass Index 28.1 Const General: healthy appearing, no acute distress and well developed Nutritional Appearance: well nourished Orientation/consciousness: patient oriented x3 HEENT Head: Yes normal to inspection, Yes normocephalic and Yes atraumatic Face and sinus: Yes normal facial exam Mouth: Normal oral and palatal mucosa present Throat: Yes posterior oropharynx normal, Yes tonsils normal and Yes uvula midline Eyes General: appearance normal, both eyes and all related structures Neck Neck: Yes normal visual inspection, Yes full ROM and Yes trachea midline Thyroid: Thyroid normal Resp Effort & Inspection: normal respiratory effort, able to speak in complete sentences, no tracheal deviation and symmetric chest movement Auscultation: clear to auscultation bilaterally Cardio Rate: regular rate Heart sounds: S1 normal heart sound present and S2 normal heart sound present GI Inspection: Yes normal to inspection, No distended and Yes obesity Palpation (GI): Soft to palpation, not firm, nontender and No hepatosplenomegaly present Auscultation: normal bowel sounds General: Yes no CVA tenderness Back/Spine/Pelvis Back: no CVA tenderness Skin General skin exam: elasticity normal, turgor normal and dry skin Neuro General: patient oriented x3 Psych Appearance: grossly normal Mental Status: mental status grossly normal Results Reviewed Results Reviewed: Laboratory Tests 07/06/23 10:45 Lipase 55 Tiss Transglutamin IgG 1.6 Tiss Transglutamin IgA >250.0 H Assessment & Plan Assessment & Plan (1) Adult celiac disease: Code(s): K90.0 - Celiac disease (2) Chronic idiopathic constipation: Code(s): K59.04 - Chronic idiopathic constipation (3) Epigastric pain: Code(s): R10.13 - Epigastric pain Plan Will book patient for upper endoscopy and colonoscopy. Patient will return to see me in October to go over the procedure and making sure that she continues to have good bowel movements. Patient will call me sooner if she will have any GI concerning symptoms. Patient is agreeable to this plan and verbalizes understanding of instructions. She was given the opportunity to ask questions and all questions answered. Thank you for allowing me to participate in her care Coding Level of Care Code Est Pt Level 3 (96215) Diagnoses Adult celiac disease K90.0 Chronic idiopathic constipation K59.04 Epigastric pain R10.13 Time Spent (min) 25 Comment 15 minutes spent with patient and additional 10 minutes spent reviewing her records
[2023-09-05 14:27] VITALS: BP 98/61; PULSE 67; BMI 28.1
== END 2023-09-05 15:12 | disposition home or self-care (01) ==
PROVIDERS: PCP Internal Medicine; Visit Provider Nurse Practitioner Family
DX: K90.0 Celiac disease (principal)
CPT/HCPCS: 99213

== ENCOUNTER → 2023-09-05 14:17 | Outpatient (BNVA) | payer OTHER, SELFPAY | PROVIDERS: PCP Internal Medicine; Visit Provider Nurse Practitioner Family | DX: K90.0 Celiac disease (principal); R10.13 Epigastric pain | CPT/HCPCS: 99212 ==

== ENCOUNTER 2023-10-27 08:40 | Outpatient (REF) | payer OTHER, SELFPAY ==
--- NOTE | ~2023-10-27 | MM_ITS ---
EXAMINATION: MM SCREENING DIGITAL BREAST TOMOSYNTHESIS, BILATERAL CLINICAL INFORMATION: Screening. Asymptomatic. COMPARISON: Mammography: 09/29/2022, 09/27/2021, 09/11/2020, 09/06/2019, and dating back to 2016. TECHNIQUE: Digital breast tomosynthesis is performed in both the craniocaudal and mediolateral oblique views along with computer-aided detection (CAD). Synthesized 2D images are generated from the tomosynthesis. FINDINGS: There are scattered areas of fibroglandular density (ACR BI-RADS breast composition Category b). There are no suspicious masses, suspicious grouped calcifications, or areas of architectural distortion in either breast. The parenchymal pattern is stable from prior exams. No skin or axillary abnormality. MM/MM tomosynthesis screening BI IMPRESSION: No mammographic evidence of malignancy. ASSESSMENT: BI-RADS BI-RADS 1 - Negative RECOMMENDATION: Routine annual mammography screening. 1 year F/U This examination should not preclude the clinical evaluation of a suspicious palpable abnormality. This patient's information was entered into a reminder system with a target due date for their next mammogram.
== END 2023-10-27 08:41 | disposition home or self-care (01) ==
LOC: HO.MAMMO 08:40
PROVIDERS: PCP Internal Medicine; Visit Provider Internal Medicine
DX: Z12.31 Encounter for screening mammogram for malignant neoplasm of breast (principal)
CPT/HCPCS: 77063; 77067

== ENCOUNTER → 2023-10-27 09:00 | Outpatient (BNV) | payer OTHER, SELFPAY | PROVIDERS: PCP Internal Medicine; Visit Provider Radiology Diagnostic Radiology | DX: Z12.31 Encounter for screening mammogram for malignant neoplasm of breast (principal) | CPT/HCPCS: 77063; 77067 ==

== ENCOUNTER 2023-11-20 12:45 | Outpatient (AMB) | payer OTHER, SELFPAY ==
--- NOTE | 2023-11-20 12:55 | MHC.OFFVIS ---
Intake Vital Signs 11/20/23 12:56 Height 5 ft 4 in Weight 166 lb 3.657 oz BMI 28.5 BP 95/62 Blood Pressure Location Rt brachial Position Sitting Pulse 81 Intake Visit Reasons: rediscuss prep Intake Note: Patient returns to in office visit today in follow up to re-discuss colonoscopy preparation. CC: Patient reports doing better from constipation. Denies other GI symptoms today. 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 Patient will return to see me in October to go over the procedure and making sure that she continues to have good bowel movements. Patient will call me sooner if she will have any GI concerning symptoms. Patient is agreeable to this plan and verbalizes understanding of instructions. She was given the opportunity to ask questions and all questions answered. ? TODAY'S VISIT: Patient has upper endoscopy and colonoscopy scheduled. Patient reports that she has been doing better after seen last time. Moving her bowels daily. Patient denies any dyspepsia, dysphagia or odynophagia. Continues to avoid gluten as much as possible. Patient denies any melena, hematochezia, unintentional weight loss or ribbon like stools. Patient denies any issues with anesthesia in the past. Not on any anticoagulation medication. No history of sleep apnea. Denies any cardiac or respiratory symptoms. [facility] Medical History Urgency incontinence Internal and external prolapsed hemorrhoids Constipation by delayed colonic transit Blurry vision Mild recurrent major depression Physical exam Adult celiac disease GERD (gastroesophageal reflux disease) Anemia PAC (premature atrial contraction) Anxiety and depression Chest pain Polyarthralgia Herpes Depression History of celiac disease Hx of gastroesophageal reflux (GERD) Hx of constipation Hx of chronic kidney disease Surgical History Hx of varicose vein ligation and stripping Hx of section Family History Mother Hx of diabetes mellitus Hx of hypertensive heart disease Father Hx of diabetes mellitus Hx of hypertensive heart disease Paternal Uncle History of colon cancer Maternal Grandmother Cancer Daughter No problems noted. Sister No problems noted. Son No problems noted. Son No problems noted. Brother No problems noted. Paternal Grandfather History of colon cancer Social History Household Members: None Housing: Apartment Alcohol intake: never Patient Tobacco Use Status: Former Tobacco user Tobacco use type: Cigarette e-Cigarette/Vaping Use: Never Used Second Hand Smoke Exposure: No service: No Current occupational status: employed Current occupational exposures/hazards: No Cognitive needs: No Hearing needs: No Vision needs: No Female Reproductive History Menstrual Age of Menarche: 11 Review of Systems Const Denies weight gain and Denies weight loss ENT Reports no additional complaints, Denies dysphagia and Denies odynophagia Card Reports no additional complaints Resp Reports no additional complaints GI Denies abdominal pain, Denies belching, Denies melena, Denies bloating, Denies change in bowel habits, Denies dysphagia, Denies excessive flatus, Denies dyspepsia, Denies heartburn, Denies diarrhea, Denies loose stools, Denies nausea, Denies odynophagia and Denies vomiting Reports no additional complaints Musc Reports no additional complaints Neuro Reports no additional complaints Psych Reports no additional complaints Endo Reports no additional complaints Physical Exam Vital Signs: Last Vital Signs Pulse 81 11/20/23 12:56 BP 95/62 11/20/23 12:56 BMI result Body Mass Index 28.5 Const General: healthy appearing, no acute distress and well developed Nutritional Appearance: well nourished Orientation/consciousness: patient oriented x3 Resp Effort & Inspection: normal respiratory effort, able to speak in complete sentences, no tracheal deviation and symmetric chest movement Auscultation: clear to auscultation bilaterally Cardio Rate: regular rate Heart sounds: S1 normal heart sound present and S2 normal heart sound present GI Inspection: Yes normal to inspection, No distended and Yes obesity Palpation (GI): Soft to palpation, not firm, nontender and No hepatosplenomegaly present Auscultation: normal bowel sounds General: Yes no CVA tenderness Back/Spine/Pelvis Back: no CVA tenderness Skin General skin exam: elasticity normal, turgor normal and dry skin Neuro General: patient oriented x3 Psych Appearance: grossly normal Mental Status: mental status grossly normal Assessment & Plan Assessment & Plan (1) Constipation by delayed colonic transit: Code(s): K59.01 - Slow transit constipation (2) Hx of gastroesophageal reflux (GERD): Code(s): Z87.19 - Personal history of other diseases of the digestive system (3) Adult celiac disease: Code(s): K90.0 - Celiac disease Plan Continue Senokot. Patient was encouraged to increase fluid intake and activity to promote better bowel motility. Will send patient for upper endoscopy history of celiac, unsure patient is really compliant with avoiding gluten. Patient denies any dyspepsia, dysphagia or odynophagia. Patient denies any epigastric pain. What to expect before during and after procedure discussed with patient. Stressed the importance of good bowel prep day before the procedure as well as clear liquid diet. Patient will stop taking iron supplements 1 week before the procedure. Patient was encouraged to stop taking NSAIDs. I will see patient after the procedure, sooner on as needed basis. Patient is agreeable to this plan and verbalizes understanding of instructions. She was given the opportunity to ask questions and all questions answered. Thank you for allowing me to participate in her care Medications: New bisacodyl (Dulcolax (bisacodyl)) take 4 tabs at noon the day before your colonoscopy 20 mg (4 x 5 mg) PO ONCE 1 day 4 tabs 0RF Z12.11 - Encounter for screening for malignant neoplasm of colon polyethylene glycol 3350 (Miralax) As directed by gastroenterology department at [facility] 238 grams PO ONCE 238 grams 0RF Z12.11 - Encounter for screening for malignant neoplasm of colon Coding Level of Care Code Est Pt Level 3 (97849) Diagnoses Constipation by delayed colonic transit K59.01 Hx of gastroesophageal reflux (GERD) Z87.19 Adult celiac disease K90.0 Time Spent (min) 30 Comment 20 minutes spent with patient and additional 10 minutes spent reviewing her records
[2023-11-20 12:56] VITALS: BP 95/62; PULSE 81; BMI 28.5
== END 2023-11-20 13:30 | disposition home or self-care (01) ==
PROVIDERS: PCP Internal Medicine; Visit Provider Nurse Practitioner Family
DX: K90.0 Celiac disease (principal); Z87.19 Personal history of other diseases of the digestive system
CPT/HCPCS: 99213

== ENCOUNTER → 2023-11-20 12:45 | Outpatient (BNVA) | payer OTHER, SELFPAY | PROVIDERS: PCP Internal Medicine; Visit Provider Nurse Practitioner Family | DX: K59.01 Slow transit constipation (principal); K90.0 Celiac disease; Z79.899 Other long term (current) drug therapy; Z87.19 Personal history of other diseases of the digestive system | CPT/HCPCS: 99212 ==

== ENCOUNTER 2024-01-15 07:51 | Day surgery (SDC) | payer OTHER, SELFPAY ==
[2024-01-11 14:17] VITALS: BMI 28.5
--- NOTE | 2024-01-14 12:29 | HO.ANESPROP2 ---
Documented by User: Isabel Shelby NP 01/14/24 12:32 HPI - Anesthesia Eval Consult details Narrative: 53yo F for Upper Endoscopy and Colonoscopy PMF Active Problems Active Problems: All Active Problems (Updated 06/04/23 @ 16:31 by Alexandra Stevenson MD) OAB (overactive bladder) (Acute) Thoracic spine pain (Acute) Pain of right scapula (Acute) Polydipsia (Acute) Urgency incontinence (Acute) Back pain (Acute) Thrombocytosis (Acute) Umbilical hernia (Acute) Elevated TSH (Acute) Low vitamin D level (Acute) Insomnia (Acute) Internal and external prolapsed hemorrhoids (Acute) Constipation by delayed colonic transit (Acute) Blurry vision (Acute) Well woman exam with routine gynecological exam (Acute) Cervical cancer screening (Acute) Potential exposure to STD (Acute) Upper back pain on right side (Acute) Mild recurrent major depression (Acute) Physical exam (Acute) Hx of gastroesophageal reflux (GERD) (Acute) Hx of constipation (Acute) Hx of chronic kidney disease (Acute) Adult celiac disease (Acute) Depression (Acute) Herpes (Acute) History of celiac disease (Acute) Potential exposure to STD (Acute) Encounter for well woman exam with routine gynecological exam (Acute) Encounter to discuss test results (Acute) Blepharitis (Acute) Palpitations (Acute) Urinary incontinence (Acute) GERD (gastroesophageal reflux disease) (Acute) Anemia (Acute) PAC (premature atrial contraction) (Acute) Anxiety and depression (Acute) Chest pain (Acute) Polyarthralgia (Acute) Past Medical History Medical History Urgency incontinence Internal and external prolapsed hemorrhoids Constipation by delayed colonic transit Blurry vision Mild recurrent major depression Physical exam Adult celiac disease GERD (gastroesophageal reflux disease) Anemia PAC (premature atrial contraction) Anxiety and depression Chest pain Polyarthralgia Herpes Depression History of celiac disease Hx of gastroesophageal reflux (GERD) Hx of constipation Hx of chronic kidney disease Family History Family History Mother Hx of diabetes mellitus Hx of hypertensive heart disease Father Hx of diabetes mellitus Hx of hypertensive heart disease Paternal Uncle History of colon cancer Maternal Grandmother Cancer Daughter No problems noted. Sister No problems noted. Son No problems noted. Son No problems noted. Brother No problems noted. Paternal Grandfather History of colon cancer Surgical History Surgical History Hx of varicose vein ligation and stripping Hx of section Social History Social History Household Members: None Housing: Apartment Alcohol intake: never Patient Tobacco Use Status: Former Tobacco user Tobacco use type: Cigarette Smoked in Last 30 Days: No e-Cigarette/Vaping Use: Never Used Second Hand Smoke Exposure: No Use of substances other than those prescribed or required for medical reasons: No Are you DNR?: No Advance Directives: No Advance Directives Information Provided: Yes service: No Current occupational status: employed Current occupational exposures/hazards: No Cognitive needs: No Hearing needs: No Vision needs: No Meds Allergies Allergy/AdvReac Type Severity Reaction Status Date / Time gluten [GLUTEN] Allergy Intermediate CELIAC Verified 01/15/24 08:54 DISEASE Penicillins [PENICILLINS] Allergy Intermediate AGITATION Verified 01/15/24 08:54 Exam Height,Weight and Vital Signs: Height 5 ft 4 in Weight 75.296 kg Assessment and Plan Assessment Anesthesia Assessment: Chart Reviewed Documented by User: Jennifer Sawant MD 01/15/24 10:17 FORMERLY [facility], [facility]–1983 Active Problems Active Problems: All Active Problems (Updated 01/15/24 @ 09:42 by Jennifer Sawant MD) OAB (overactive bladder) (Acute) Thoracic spine pain (Acute) Pain of right scapula (Acute) Polydipsia (Acute) Urgency incontinence (Acute) Back pain (Acute) Thrombocytosis (Acute) Umbilical hernia (Acute) Elevated TSH (Acute) Low vitamin D level (Acute) Insomnia (Acute) Internal and external prolapsed hemorrhoids (Acute) Constipation by delayed colonic transit (Acute) Blurry vision (Acute) Well woman exam with routine gynecological exam (Acute) Cervical cancer screening (Acute) Potential exposure to STD (Acute) Upper back pain on right side (Acute) Mild recurrent major depression (Acute) Physical exam (Acute) Hx of gastroesophageal reflux (GERD) (Acute) Hx of constipation (Acute) Hx of chronic kidney disease (Acute) Adult celiac disease (Acute) Depression (Acute) Herpes (Acute) History of celiac disease (Acute) Potential exposure to STD (Acute) Encounter for well woman exam with routine gynecological exam (Acute) Encounter to discuss test results (Acute) Blepharitis (Acute) Palpitations (Acute) Urinary incontinence (Acute) GERD (gastroesophageal reflux disease) (Acute) Anemia (Acute) PAC (premature atrial contraction) (Acute) Anxiety and depression (Acute) Chest pain (Acute) Polyarthralgia (Acute) Past Medical History Medical History Urgency incontinence Internal and external prolapsed hemorrhoids Constipation by delayed colonic transit Blurry vision Mild recurrent major depression Physical exam Adult celiac disease GERD (gastroesophageal reflux disease) Anemia PAC (premature atrial contraction) Anxiety and depression Chest pain Polyarthralgia Herpes Depression History of celiac disease Hx of gastroesophageal reflux (GERD) Hx of constipation Hx of chronic kidney disease Family History Family History Mother Hx of diabetes mellitus Hx of hypertensive heart disease Father Hx of diabetes mellitus Hx of hypertensive heart disease Paternal Uncle History of colon cancer Maternal Grandmother Cancer Daughter No problems noted. Sister No problems noted. Son No problems noted. Son No problems noted. Brother No problems noted. Paternal Grandfather History of colon cancer Family history of problems with anesthesia: No Surgical History Surgical History Hx of varicose vein ligation and stripping Hx of section History of Problems with Anesthesia: No Social History Social History Household Members: None Housing: Apartment Alcohol intake: never Patient Tobacco Use Status: Former Tobacco user Tobacco use type: Cigarette Smoked in Last 30 Days: No e-Cigarette/Vaping Use: Never Used Second Hand Smoke Exposure: No Use of substances other than those prescribed or required for medical reasons: No Are you DNR?: No Advance Directives: No Advance Directives Information Provided: Yes service: No Current occupational status: employed Current occupational exposures/hazards: No Cognitive needs: No Hearing needs: No Vision needs: No Meds Allergies Allergy/AdvReac Type Severity Reaction Status Date / Time gluten [GLUTEN] Allergy Intermediate CELIAC Verified 01/15/24 08:54 DISEASE Penicillins [PENICILLINS] Allergy Intermediate AGITATION Verified 01/15/24 08:54 Exam Height,Weight and Vital Signs: Height 5 ft 4 in Weight 75.296 kg Vital Signs Temp Pulse Resp BP Pulse Ox O2 Del Method 01/15/24 09:05 98.0 F 71 16 123/57 L 100 Room Air Airway Mallampati Class: II TM Dist: >3cm Neck ROM: Full Loose/Missing/Broken Teeth: Yes (No teeth top. Some teeth bottom. Denies broken or loose teeth) Heart: RRR Lungs: CTAB Assessment and Plan Assessment Anesthesia Assessment: Anesthesia Plan Discussed and Chart Reviewed Final Anesthetic Review Family History of Problems with Anesthesia: No History of Problems with Anesthesia: No NPO: Yes ASA Class: II Final Preanesthetic Review: No Changes in Pt Med Stat, Meds/Allgs Chart Reviewed, Consent Obtained/Reviewed and Anes Risks/Benef Reviewed Patient Risk: Low Procedure Risk: Low Assessment/Block/Sedation in SS: Assess/Block/Sedation-SS Anesthetic Plan Anesthetic Plan: MAC: and TIVA Disposition: Standard PACU
--- NOTE | 2024-01-15 08:46 | MHC.SHP ---
Pre-Procedural Eval Section A - 24 Hr Update-Section A only Date of Service: 01/15/24 Section B - Complete if H&P > 30 days Chief Complaint: Gastro-esophageal reflux disease without esophagit Relevant Family History (Specify if Yes): No Relevant Social History: None Present Medications: see Short Stay Collaborative assessment Medical History: Significant History (Urgency incontinence Internal and external prolapsed hemorrhoids Constipation by delayed colonic transit Blurry vision Mild recurrent major depression Physical exam Adult celiac disease GERD (gastroesophageal reflux disease) Anemia PAC (premature atrial contraction) Anxiety and depression Chest pain) History of Previous Operations: Relevant previous surgery/procedure and date(s) (Hx of varicose vein ligation and stripping Hx of section) Allergies: Allergies Allergy/AdvReac Type Severity Reaction Status Date / Time gluten [GLUTEN] Allergy Intermediate CELIAC Verified 11/20/23 13:00 DISEASE Penicillins [PENICILLINS] Allergy Intermediate AGITATION Verified 11/20/23 13:00 Review of Systems Sugical H&P ROS: Negative: Constitution, Cardiovascular, Respiratory, Neurological, Psychiatric, Hem-Onc, Allergic/Immunologic, Gastrointestinal, Genitourinary, Musculoskeletal, Integumentary, Endocrine and Eyes/Ears/Nose/Throat Exam Surgical H&P Exam: Normal: HEENT, Normal: Heart, Normal: Lungs, Normal: Extremities, Normal: Abdomen, Normal: Skin and Normal: Neurological Plan Diagnosis/Plan: Unchanged I have reviewed the history and physical and performed a pertinent physical examination on my patient. No changes have occurred unless specified. Time Spent With Patient Time: Total time managing care of this patient today ____ minutes.
[2024-01-15 08:49] VITALS: BMI 28.8
[2024-01-15] MEDS: Sodium Phosphate,Mono-Dibasic 133 ML ENEMA PR (09:00)
[2024-01-15 09:05] VITALS: BP 123/57; PULSE 71; RESP 16; TEMP 36.7; O2SAT 100
[2024-01-15] MEDS: Lactated Ringers 1,000 ML 100 ML IVCONT (09:21)
--- NOTE | 2024-01-15 10:03 | W.PM.OPN ---
Operative Note Operative Note Date of Service: 01/15/24 Narrative: Operative Information Procedure Description: EGD, Colonoscopy Indication: celiac disease, epigastric pain, constipation Anesthesia: MAC FLEXIBLE TRANSORAL UPPER GASTROINTESTINAL ENDOSCOPY AND COLONOSCOPY PROCEDURE NOTE UPPER ENDOSCOPY Consent: Indications for the procedure and potential complications of bleeding, perforation, reaction to medications and missed diagnosis were discussed with the patient and informed consent was obtained. Instrument: Olympus GIF H 190 J mid size upper endoscope Monitoring: Vital signs and clinical assessment, continuous EKG monitoring, Pulse oximetry, Carbon Dioxide monitoring and blood pressure monitoring were done throughout the procedure. Procedure: The patient was placed in the left lateral decubitis position and pre-procedure medications were administered and a bite block was placed. The endoscope was inserted into the mouth and advanced under direct vision to the third part of duodenum. A careful inspection was made as the upper endoscope was withdrawn including a retroflexed examination of the proximal stomach; Findings and interventions are described below. Findings: Larynx:normal Esophagus: GE junction at 35 cm, diaphragm hiatus at 35 cm, normal mucosa--bx taken from GEJ and distal esophagus Stomach: Patchy erythema. Biopsies were obtained. Grade 2 flap valve on retroflexed examination of the cardia. Duodenum: Fissured mucosa, bx taken Intervention: Biopsies as noted above, COLONOSCOPY Instrument: Olympus variable stiffness pediatric scope 190L Colonoscopy Monitoring: Vital signs and clinical assessment, continuous EKG monitoring, Pulse oximetry, Carbon Dioxide monitoring and blood pressure monitoring were done throughout the procedure. Colon withdrawal time was 10 minutes. Procedure: The patient was placed in the left lateral decubitis position and pre-procedure medications were administered. After a digital rectal examination of the ano-rectum, the video colonoscope was inserted into the rectum and advanced through the colon to the cecum/TI. The colonoscope was slowly withdrawn in a retrograde panoramic fashion and the colon mucosa was carefully examined including a retroflexed view of the rectum. Findings and interventions are described below. Procedure Difficulty:moderate Findings: Terminal Ileum-normal, bx taken Melanosis coli throughout colon Cecum: granular mucosa, bx taken Ascending Colon: normal Transverse Colon -normal Descending Colon:normal Sigmoid Colon: normal Rectum: Retroflexion with small internal hemorrhoids, grade I Anorectum - normal Colon preparation: [place] Bowel Preparation Scale Right colon; 2 Transverse colon: 2 Left colon; 1-2 (0 = Unprepared colon segment with mucosa not seen due to solid stool that cannot be cleared. 1 = Portion of mucosa of the colon segment seen, but other areas of the colon segment not well seen due to staining, residual stool and/or opaque liquid. 2 = Minor amount of residual staining, small fragments of stool and/or opaque liquid, but mucosa of colon segment seen well. 3 = Entire mucosa of colon segment seen well with no residual staining, small fragments of stool or opaque liquid) Impression and Post Procedure Diagnosis: Endoscopy Findings: gastritis duodenopathy -appearances consistent with mild celiac disease Colonoscopy Findings: internal hemorrhoids melanosis coli Plan: Await Pathology results Repeat Colonoscopy in 5 years due to fair prep left colon or earlier if clinically indicated High fiber diet leaflet avoid straining at stool, epsom salts and sitz bath, anusol supps or cream gluten free diet adherence (admits to not being compliant) Above findings were reviewed with the patient and relevant handouts were provided if indicated.
[2024-01-15 10:26] VITALS: BP 89/55; PULSE 66; RESP 18; TEMP 36.2; O2SAT 95
[2024-01-15 10:41] VITALS: BP 107/68; PULSE 58; RESP 18; TEMP 36.2; O2SAT 100
== END 2024-01-15 11:24 | disposition home or self-care (01) ==
PROVIDERS: PCP Internal Medicine; Visit Provider Internal Medicine Gastroenterology
PROC: (CPT 45380; principal; 2024-01-15 10:20)
DX: Z12.11 Encounter for screening for malignant neoplasm of colon (principal); K63.89 Other specified diseases of intestine; K64.0 First degree hemorrhoids; K59.04 Chronic idiopathic constipation; B00.9 Herpesviral infection, unspecified; K21.9 Gastro-esophageal reflux disease without esophagitis; R13.10 Dysphagia, unspecified; K90.0 Celiac disease; K29.50 Unspecified chronic gastritis without bleeding; K44.9 Diaphragmatic hernia without obstruction or gangrene; D64.9 Anemia, unspecified; I49.1 Atrial premature depolarization; N18.9 Chronic kidney disease, unspecified; F33.0 Major depressive disorder, recurrent, mild; Z88.0 Allergy status to penicillin; Z87.891 Personal history of nicotine dependence
CPT/HCPCS: 45380; 43239; 88305; 88313; 88342; J2704

== ENCOUNTER → 2024-01-15 07:51 | Outpatient (BNV) | payer OTHER, SELFPAY | PROVIDERS: PCP Internal Medicine; Visit Provider Internal Medicine Gastroenterology | DX: K90.0 Celiac disease (principal); K29.80 Duodenitis without bleeding; K64.0 First degree hemorrhoids; K63.89 Other specified diseases of intestine; K21.9 Gastro-esophageal reflux disease without esophagitis; K29.70 Gastritis, unspecified, without bleeding | CPT/HCPCS: 43239; 45380 ==

== ENCOUNTER 2024-02-14 17:05 | Emergency (ER) | payer OTHER, SELFPAY ==
[2024-02-14 18:13] VITALS: BP 149/69; PULSE 116; RESP 18; TEMP 36.8; O2SAT 96; BMI 29.7
--- NOTE | 2024-02-14 18:13 | ED_ITS ---
HPI - General Adult General Chief complaint: General Medical Stated complaint: thorat/ shoulder pain, head pain Time Seen by Provider: 02/14/24 20:09 Source: patient Mode of arrival: ambulatory Limitations: no limitations History of Present Illness HPI narrative: Patient comes emergency room complaining of generalized malaise. Patient was recently diagnosed with strep throat and has been started on antibiotics. Patient came to the emergency room because she wanted to have labs done and states that she has a bit of a headache, denies visual changes, no neck pain or stiffness Related Data Previous Rx's ?Medication ?Instructions ?Recorded cromolyn 4 % eye drops 1 drp ophthalmic (eye) QID 5 days 04/17/23 #10 mL cholecalciferol (vitamin D3) 50 50 mcg PO DAILY #90 caps 06/27/23 mcg (2,000 unit) capsule clotrimazole-betamethasone 1 1 appl topical BID PRN itching 7 06/27/23 %-0.05 % topical cream days #45 grams cyclobenzaprine 5 mg tablet 5 mg PO TID PRN muscle spasm #20 06/27/23 tabs escitalopram oxalate 10 mg tablet 10 mg PO DAILY 90 days #90 tabs 06/27/23 fluticasone propionate 50 1 spray intranasal DAILY 30 days 06/27/23 mcg/actuation nasal #16 grams spray,suspension (Flonase Allergy Relief) hydrocortisone 1 % topical cream 1 appl topical TID PRN skin 06/27/23 (Anti-Itch (hydrocortisone)) irritation 2 weeks #28.4 grams meclizine 25 mg tablet (Dramamine 25 mg PO TID PRN dizziness #30 tabs 06/27/23 Less Drowsy) mirabegron 50 mg tablet,extended 50 mg PO DAILY #90 tabs 06/27/23 release 24 hr (Myrbetriq) polyethylene glycol 3350 17 17 g PO DAILY #510 grams 07/06/23 gram/dose oral powder (Miralax) sennosides 8.6 mg tablet (Natural 17.2 mg (2 x 8.6 mg) PO BEDTIME 07/06/23 Senna Laxative) constipation #180 tabs acetaminophen 650 mg 1,300 mg (2 x 650 mg) PO Q8H PRN 11/09/23 tablet,extended release fever or pain 30 days #180 tabs lidocaine 5 % topical patch 1 patch topical DAILY #15 ea 11/09/23 ferrous sulfate 325 mg (65 mg 325 mg PO DAILY 90 days #90 tabs 11/11/23 iron) tablet acetaminophen 500 mg capsule 500 mg PO Q6H PRN fever or pain 02/14/24 #20 caps Allergies Allergy/AdvReac Type Severity Reaction Status Date / Time gluten [GLUTEN] Allergy Intermediate CELIAC Verified 02/14/24 18:13 DISEASE Penicillins [PENICILLINS] Allergy Intermediate AGITATION Verified 02/14/24 18:13 Review of Systems 2 Review of Systems: Constitutional : No Weight loss, No Fever, No Chills, No Night Sweats, fatigue, generalized malaise ENT/Mouth : No Hearing loss, No Ear Pain, No Nasal Congestion, No Sinus Pain, No Hoarseness, complaining of sore throat, No Rhinorrhea, No Swallowing Difficulty Eyes: No Eye Pain, No Swelling, No Redness, No Foreign Body, No Discharge, No Vision Changes Cardiovascular : No Chest Pain, No SOB, No Dyspnea on Exertion, No Orthopnea, No Edema, No Palpitations Respiratory : No Cough, No Sputum, No Wheezing, No Smoke Exposure, No Dyspnea Gastrointestinal : No Nausea, No Vomiting, No Diarrhea, No Constipation, No abdominal Pain, No Hematochezia, No Melena Genitourinary : no irregular bleeding, No Dysuria, No Urinary Frequency, No Hematuria, No Urinary Incontinence, No Urgency, No Flank Pain, No Urinary Flow Changes, No Hesitancy Musculoskeletal : No joint pain, No Myalgias, No Joint Swelling Skin : No Skin Lesions, No rash Neuro : No Weakness, No Numbness, No Paresthesias, No Loss of Consciousness, No Dizziness, complaining of Headache Psych : No Anxiety/Panic, No Depression, No SI/HI/AH/VH, No Social Issues, Heme/Lymph: No Bruising, No Bleeding,No Lymphadenopathy Endocrine : No Polyuria, No Polydipsia, No Temperature Intolerance [facility] Past Medical History Medical History Urgency incontinence Internal and external prolapsed hemorrhoids Constipation by delayed colonic transit Blurry vision Mild recurrent major depression Physical exam Adult celiac disease GERD (gastroesophageal reflux disease) Anemia PAC (premature atrial contraction) Anxiety and depression Chest pain Polyarthralgia Herpes Depression History of celiac disease Hx of gastroesophageal reflux (GERD) Hx of constipation Hx of chronic kidney disease Surgical History Hx of varicose vein ligation and stripping Hx of section Family History Family History Mother Hx of diabetes mellitus Hx of hypertensive heart disease Father Hx of diabetes mellitus Hx of hypertensive heart disease Paternal Uncle History of colon cancer Maternal Grandmother Cancer Daughter No problems noted. Sister No problems noted. Son No problems noted. Son No problems noted. Brother No problems noted. Paternal Grandfather History of colon cancer Social History Social History Household Members: None Housing: Apartment Alcohol intake: never Patient Tobacco Use Status: Former Tobacco user Tobacco use type: Cigarette e-Cigarette/Vaping Use: Never Used Second Hand Smoke Exposure: No Advance Directives: No Advance Directives Information Provided: No Do you have a plan to hurt others: No Plan service: No Current occupational status: employed Current occupational exposures/hazards: No Cognitive needs: No Hearing needs: No Vision needs: No Physical Exam ED Vital Signs: Vital Signs - 24 hr 02/14/24 18:13 Temperature 98.2 F Pulse Rate 116 H Respiratory Rate 18 Blood Pressure 149/69 H Pulse Oximetry 96 Oxygen Delivery Method Room Air BMI result Body Mass Index 29.7 Const Other: Appearance: Alert. Oriented X3. No acute distress. Eyes: Pupils equal, round and reactive to light. ENT: Pharynx normal. Neck: Normal inspection. Neck supple. No lymph nodes noted. No crepitus, normal range of motion, no stiffness CVS: Normal heart rate and rhythm. Pulses normal. Normal S1 and S2 Respiratory: No respiratory distress. Breath sounds normal. No Wheezing. No rales Abdomen: Soft and nontender. No rigidity. No distention. Skin: Skin warm and dry. Normal skin color. Normal skin turgor. Extremities: No lower extremity edema. No Lacerations. No Rash Neuro: Oriented X 3. No motor deficit. No sensory deficit. Moving all extremities. No slurred speech. CN 2 through 12 grossly intact Psych: calm, cooperative, normal affect Course Course Course Narrative: This is a rapid medical exam: Additional HPI, ROS, PE not included below will be deferred to primary provider. Patient is a 53-year-old female with history of chronic back pain, depression presenting to the ED with complaint of fevers, weakness, head, neck and shoulder pain, body aches. She was seen at [facility] earlier today, diagnosed with strep and was prescribed antibiotics, took one dose. She tested negative for Covid, flu, RSV. She is concerned that no labs were drawn. Has headache, neck and shoulder pain. Discussed with patient that symptoms are likely related to strep infection and that she will need to take abx for 24-48 hours before symptoms improve. Patient adamant that she wants labs checked. Patient also requesting UA for urinary frequency. Plan: labs Medications Administered Discontinued Medications Generic Name Dose Route Start Last Admin Trade Name Freq PRN Reason Stop Dose Admin Acetaminophen 650 mg 02/14/24 18:23 02/14/24 18:24 Acetaminophen 325 Mg Tablet PO 02/14/24 18:24 650 mg ONCE ONE Administration Medical Decision Making Medical Decision Making [facility] Narrative: My interpretation of labs, white blood cell count 12.9, likely secondary to bacterial pharyngitis for which she is already being treated. Patient has had 1 dose so far. Chemistry within normal limits. Urinalysis shows trace/small leukocyte esterase, no bacteria seen in the urine, no UTIs, no white blood cells the urine. Patient has no UTI like symptoms, antibiotics not indicated specifically for UTI. -patient requesting medication for headache, patient given 1 dose of IM Toradol. Differential Diagnosis Differential Diagnoses: The differential diagnosis associated with the presentation includes (Headache, viral URI, bacterial pharyngitis) Lab Data [facility] Lab Attestation statement: I reviewed the patient's lab results. 02/14/24 18:55 02/14/24 18:55 Labs: Lab Results 02/14/24 Range/Units 18:55 WBC 12.9 H (4.8-10.8) X10*3/uL RBC 4.23 (4.20-5.50) X10*6/uL Hgb 13.0 D (12.0-16.0) g/dl Hct 37.9 (37.0-47.0) % MCV 89.6 (80.0-98.0) fL MCH 30.7 (27.0-33.0) pg MCHC 34.3 (31.0-35.0) g/dl RDW 13.9 (11.0-16.0) % Plt Count 322 (160-400) X10*3/uL MPV 9.5 (9.4-12.3) fL Immature Gran % (Auto) 0.4 (0.0-0.4) % Neut % (Auto) 85.3 H (45-73) % Lymph % (Auto) 9.1 L (20-40) % [place] % (Auto) 4.9 (2-11) % Eos % (Auto) 0.0 (0-4) % Baso % (Auto) 0.3 (0-2) % Lymph # (Auto) 1.2 (1.2-4.9) X10*3/uL [place] # (Auto) 0.6 (0.1-1.2) X10*3/uL Eos # (Auto) 0.0 (0.0-0.4) X10*3/uL Baso # (Auto) 0.0 (0.0-0.2) X10*3/uL Abs Immat Gran (auto) 0.05 H (0.00-0.03) X10*3/uL Absolute Neuts (auto) 11.0 H (2.0-8.3) x10*3/uL Absolute Nucleated RBC 0.000 (0.0-0.012) X10*3/uL Nucleated RBC % (auto) 0.0 (0.0-0.2) /100WBC Sodium 136 (135-145) mmol/L Potassium 3.7 (3.3-5.1) mmol/L Chloride 107 (96-108) mmol/L Carbon Dioxide 23 (22-29) mmol/L Anion Gap 10 L (12-20) BUN 12 (9-16) mg/dL Creatinine 0.82 (0.5-1.4) mg/dL Estim Creat Clear Calc 79.4 Estimated GFR > 60 Random Glucose 134 H (60-115) mg/dL Calcium 8.8 (8.4-10.2) mg/dL Total Bilirubin 0.3 (0.0-1.0) mg/dL AST 35 H (5-31) U/L ALT 35 H (0-31) U/L Alkaline Phosphatase 86 (39-117) U/L Total Protein 7.2 (6.5-8.0) g/dL Albumin 4.0 (3.5-5.0) g/dL Urine Color Yellow Urine Appearance Clear Urine pH 7.0 (5.0-9.0) Ur Specific Honor 1.010 (1.005-1.025) Urine Protein Negative (Neg-Trace) mg/dL Urine Glucose (UA) Negative (Negative) mg/dL Urine Ketones Negative (Negative) mg/dL Urine Blood Negative (Negative) Urine Nitrite Negative (Negative) Ur Leukocyte Esterase Small (1+) H (Negative) Urine RBC 0-2 (0-2) /HPF Urine WBC 0-5 (0-5) /HPF Ur Squamous Epith Cells 0-2 (0-2) /HPF Urine Bacteria None Seen (None Seen) Hyaline Casts 0-2 (0-2) /LPF Discharge Plan Discharge Clinical Impression: Viral illness, Headache Patient Disposition: Home, Self-Care Instructions: Acute Headache (ED), Viral Syndrome (ED) Additional Instructions: Please follow-up with your primary care physician tomorrow. If you have any worsening or new symptoms, please return to the emergency room or call 911 Prescriptions: New acetaminophen 500 mg capsule 500 mg PO Q6H PRN (Reason: fever or pain) Qty: 20 0RF No Action cromolyn 4 % drops 1 drp ophthalmic (eye) QID 5 Days Qty: 10 0RF acetaminophen 650 mg tablet extended release 1,300 mg PO Q8H PRN (Reason: fever or pain) 30 Days Qty: 180 0RF lidocaine 5 % adhesive patch,medicated 1 patch topical DAILY Qty: 15 0RF Rx Instructions: leave on most painful area for up to 12 hrs ferrous sulfate 325 mg (65 mg iron) tablet 325 mg PO DAILY 90 Days Qty: 90 0RF cholecalciferol (vitamin D3) 50 mcg (2,000 unit) capsule 50 mcg PO DAILY Qty: 90 3RF clotrimazole-betamethasone 1-0.05 % cream 1 appl topical BID PRN (Reason: itching) 7 Days Qty: 45 0RF cyclobenzaprine 5 mg tablet 5 mg PO TID PRN (Reason: muscle spasm) Qty: 20 0RF escitalopram oxalate 10 mg tablet 10 mg PO DAILY 90 Days Qty: 90 1RF fluticasone propionate [Flonase Allergy Relief] 50 mcg/actuation spray,suspension 1 spray intranasal DAILY 30 Days Qty: 16 1RF Rx Instructions: administer into each nostril hydrocortisone [Anti-Itch (HC)] 1 % cream 1 appl topical TID PRN (Reason: skin irritation) 14 Days Qty: 28.4 1RF meclizine [Dramamine Less Drowsy] 25 mg tablet 25 mg PO TID PRN (Reason: dizziness) Qty: 30 0RF Myrbetriq 50 mg tablet extended release 24 hr 50 mg PO DAILY Qty: 90 2RF sennosides [Natural Senna Laxative] 8.6 mg tablet 17.2 mg PO BEDTIME Qty: 180 3RF polyethylene glycol 3350 [Miralax] 17 gram/dose powder 17 g PO DAILY Qty: 510 2RF Print Language: Lithuanian
[2024-02-14] MEDS: Acetaminophen 325 MG TABLET 650 MG PO (18:24)
[2024-02-14 19:00] LABS: MANUAL DIFF FLAG NO
[2024-02-14 19:02] LABS: Basophils Percent Auto 0.3 % (0-2); Hematocrit 37.9 % (37.0-47.0); Imm Gran Abs Auto 0.05 X10*3/uL (0.00-0.03); Imm Gran Pct Auto 0.4 % (0.0-0.4); Lymphocytes Absolute Auto 1.2 X10*3/uL (1.2-4.9); Lymphocytes Percent Auto 9.1 % (20-40); Mean Corpuscular HGB Conc 34.3 g/dl (31.0-35.0); Mean Corpuscular Hemoglobin 30.7 pg (27.0-33.0); Mean Corpuscular Volume 89.6 fL (80.0-98.0); Mean Platelet Volume 9.5 fL (9.4-12.3); Monocytes Absolute Auto 0.6 X10*3/uL (0.1-1.2); Monocytes Percent Auto 4.9 % (2-11); Neutrophils Percent Auto 85.3 % (45-73); Platelet Count 322 X10*3/uL (160-400); Red Blood Count 4.23 X10*6/uL (4.20-5.50); Red Cell Distribution Width 13.9 % (11.0-16.0); White Blood Count 12.9 X10*3/uL (4.8-10.8)
[2024-02-14 19:03] LABS: Appearance Urine Clear; Color Urine Yellow; Glucose Urine UA Negative (Negative); Leukocyte Esterase Urine Small (1+) (Negative); Nitrite Urine Negative (Negative); UMIC TRIGGER UACC YES; Urine Blood Negative (Negative); Urine Ketones Negative (Negative); Urine Protein Negative (Neg-Trace)
[2024-02-14 19:16] LABS: Alanine Aminotransferase 35 U/L (0-31); Alkaline Phosphatase 86 U/L (39-117); Anion Gap 10 (12-20); Aspartate Amino Transferase 35 U/L (5-31); Bilirubin Total 0.3 mg/dL (0.0-1.0); Blood Urea Nitrogen 12 mg/dL (9-16); Calcium 8.8 mg/dL (8.4-10.2); Carbon Dioxide 23 mmol/L (22-29); Chloride 107 mmol/L (96-108); Creatinine Clr Calc Pharmacy 79.4; Estimated Glomerular Filt Rate > 60; Glucose Random 134 mg/dL (60-115); Potassium 3.7 mmol/L (3.3-5.1); Sodium 136 mmol/L (135-145); Total Protein 7.2 g/dL (6.5-8.0)
[2024-02-14 19:24] LABS: Bacteria Urine None Seen (None Seen); Hyaline Casts Urine 0-2 /LPF (0-2); RBC Urine 0-2 /HPF (0-2); Squamous Epithelial Cell Urine 0-2 /HPF (0-2); UACC Culture Trigger YES; WBC Urine 0-5 /HPF (0-5)
[2024-02-14 20:39] VITALS: BP 135/78; PULSE 95; RESP 16; TEMP 37.2; O2SAT 97
[2024-02-14] MEDS: Ketorolac Tromethamine 60 MG/2 ML VIAL IM (20:39)
== END 2024-02-14 20:40 | disposition home or self-care (01) ==
PROVIDERS: Registered Nurse Emergency; Emergency Provider Emergency Medicine
DX: B34.9 Viral infection, unspecified (principal); J02.9 Acute pharyngitis, unspecified; R51.9 Headache, unspecified; Z79.899 Other long term (current) drug therapy; Z87.891 Personal history of nicotine dependence
CPT/HCPCS: 36415; 80053; 81001; 81003; 85025; 87086; 87147; 96372; 99283; 99284; J1885

== ENCOUNTER 2024-02-18 09:50 | Emergency (ER) | payer OTHER, SELFPAY ==
[2024-02-18 09:52] VITALS: BP 118/95; PULSE 93; RESP 16; TEMP 36.2; O2SAT 96; BMI 29.1
[2024-02-18 10:27] LABS: IDNOW Serial# 6674DD1D; Strep A Nucleic Acid Negative (Negative)
[2024-02-18 10:45] LABS: Influenza A PCR NEGATIVE (Negative); Influenza B PCR NEGATIVE (Negative); Resp Syncy Virus RNA Qual PCR NEGATIVE (Negative); SARS COV2 PCR INHOUSE NEGATIVE (Negative)
--- NOTE | 2024-02-18 10:52 | ED_ITS ---
HPI - General Adult General Chief complaint: Upper Respiratory Symptoms Stated complaint: Throat pain? Cant talk Time Seen by Provider: 02/18/24 10:42 Source: patient and per diem interpreter Mode of arrival: ambulatory Limitations: language barrier History of Present Illness HPI narrative: Patient is a 53-year-old Icelandic-speaking female presenting to the emergency department with complaint of ongoing sore throat, headaches, body aches and nonproductive cough. She tested positive for strep at [facility] and started on clindamycin on 02/13. She was seen in this ED later that day with complaint of headache, specifically requesting labs be drawn. Reports she has been taking her clindamycin as prescribed but complains of ongoing sore throat and headache, body aches, cough. She denies any difficulty breathing, chest pain, palpitations. Denies fevers. States that she attempted to see your PCP but was told no appointments were available. She complains of spasming to her shoulders bilaterally. Reports lymphadenopathy initially which has since resolved. MD complaint: sore throat Onset (ago): day(s) Treatments prior to arrival: other Related Data Previous Rx's ?Medication ?Instructions ?Recorded cromolyn 4 % eye drops 1 drp ophthalmic (eye) QID 5 days 04/17/23 #10 mL cholecalciferol (vitamin D3) 50 50 mcg PO DAILY #90 caps 06/27/23 mcg (2,000 unit) capsule clotrimazole-betamethasone 1 1 appl topical BID PRN itching 7 06/27/23 %-0.05 % topical cream days #45 grams cyclobenzaprine 5 mg tablet 5 mg PO TID PRN muscle spasm #20 06/27/23 tabs escitalopram oxalate 10 mg tablet 10 mg PO DAILY 90 days #90 tabs 06/27/23 fluticasone propionate 50 1 spray intranasal DAILY 30 days 06/27/23 mcg/actuation nasal #16 grams spray,suspension (Flonase Allergy Relief) hydrocortisone 1 % topical cream 1 appl topical TID PRN skin 06/27/23 (Anti-Itch (hydrocortisone)) irritation 2 weeks #28.4 grams meclizine 25 mg tablet (Dramamine 25 mg PO TID PRN dizziness #30 tabs 06/27/23 Less Drowsy) mirabegron 50 mg tablet,extended 50 mg PO DAILY #90 tabs 06/27/23 release 24 hr (Myrbetriq) polyethylene glycol 3350 17 17 g PO DAILY #510 grams 07/06/23 gram/dose oral powder (Miralax) sennosides 8.6 mg tablet (Natural 17.2 mg (2 x 8.6 mg) PO BEDTIME 07/06/23 Senna Laxative) constipation #180 tabs acetaminophen 650 mg 1,300 mg (2 x 650 mg) PO Q8H PRN 11/09/23 tablet,extended release fever or pain 30 days #180 tabs lidocaine 5 % topical patch 1 patch topical DAILY #15 ea 11/09/23 ferrous sulfate 325 mg (65 mg 325 mg PO DAILY 90 days #90 tabs 11/11/23 iron) tablet acetaminophen 500 mg capsule 500 mg PO Q6H PRN fever or pain 02/14/24 #20 caps cetirizine 10 mg tablet 10 mg PO DAILY #14 tabs 02/18/24 cyclobenzaprine 5 mg tablet 5 mg PO TID PRN muscle spasm #10 02/18/24 tabs Allergies Allergy/AdvReac Type Severity Reaction Status Date / Time gluten [GLUTEN] Allergy Intermediate CELIAC Verified 02/18/24 09:56 DISEASE Penicillins [PENICILLINS] Allergy Intermediate AGITATION Verified 02/18/24 09:56 PMFSH Past Medical History Medical History Urgency incontinence Internal and external prolapsed hemorrhoids Constipation by delayed colonic transit Blurry vision Mild recurrent major depression Physical exam Adult celiac disease GERD (gastroesophageal reflux disease) Anemia PAC (premature atrial contraction) Anxiety and depression Chest pain Polyarthralgia Herpes Depression History of celiac disease Hx of gastroesophageal reflux (GERD) Hx of constipation Hx of chronic kidney disease Surgical History Hx of varicose vein ligation and stripping Hx of section Family History Family History Mother Hx of diabetes mellitus Hx of hypertensive heart disease Father Hx of diabetes mellitus Hx of hypertensive heart disease Paternal Uncle History of colon cancer Maternal Grandmother Cancer Daughter No problems noted. Sister No problems noted. Son No problems noted. Son No problems noted. Brother No problems noted. Paternal Grandfather History of colon cancer Social History Social History Household Members: None Housing: Apartment Alcohol intake: never Patient Tobacco Use Status: Former Tobacco user Tobacco use type: Cigarette e-Cigarette/Vaping Use: Never Used Second Hand Smoke Exposure: No Advance Directives: No Advance Directives Information Provided: Yes Do you have a plan to hurt others: No Plan service: No Current occupational status: employed Current occupational exposures/hazards: No Cognitive needs: No Hearing needs: No Vision needs: No Physical Exam ED Vital Signs: Vital Signs - 24 hr 02/18/24 09:52 Temperature 97.2 F Pulse Rate 93 Respiratory Rate 16 Blood Pressure 118/95 H Pulse Oximetry 96 Oxygen Delivery Method Room Air BMI result Body Mass Index 29.1 Medical Decision Making Lab Data [facility] Lab Attestation statement: I reviewed the patient's lab results. As per [facility] Labs: Lab Results 02/18/24 Range/Units 10:03 Influenza Type A (PCR) NEGATIVE (Negative) Influenza Type B (PCR) NEGATIVE (Negative) RSV RNA Qual (PCR) NEGATIVE (Negative) SARS-CoV-2 RNA (RT-PCR) NEGATIVE (Negative) S. pyogenes GrpA MANISH Negative (Negative) External Record Review External record reviewed: Inpatient record, Office record and Outpatient record Prescription Management I considered prescription management with: Other Discharge Plan Discharge Clinical Impression: Pharyngitis, Muscle spasm Patient Disposition: Home, Self-Care Instructions: Pharyngitis (ED), Upper Respiratory Infection (DC), Muscle Spasm (ED) Additional Instructions: You were evaluated in the emergency department today for a sore throat. Your testing for flu, Covid, RSV, and strep were all negative. Please complete the course of antibiotics you were prescribed. You are being prescribed a daily allergy medication. We also recommend that you begin using [id number] Flonase. Please follow-up with your primary care provider this week. Return to the emergency department if you develop fever 100.4? F or greater, difficulty or inability to swallow, difficulty breathing or shortness of breath, chest pain or any other concerning symptoms. Prescriptions: New cyclobenzaprine 5 mg tablet 5 mg PO TID PRN (Reason: muscle spasm) Qty: 10 0RF cetirizine 10 mg tablet 10 mg PO DAILY Qty: 14 0RF No Action cromolyn 4 % drops 1 drp ophthalmic (eye) QID 5 Days Qty: 10 0RF acetaminophen 650 mg tablet extended release 1,300 mg PO Q8H PRN (Reason: fever or pain) 30 Days Qty: 180 0RF lidocaine 5 % adhesive patch,medicated 1 patch topical DAILY Qty: 15 0RF Rx Instructions: leave on most painful area for up to 12 hrs ferrous sulfate 325 mg (65 mg iron) tablet 325 mg PO DAILY 90 Days Qty: 90 0RF acetaminophen 500 mg capsule 500 mg PO Q6H PRN (Reason: fever or pain) Qty: 20 0RF cholecalciferol (vitamin D3) 50 mcg (2,000 unit) capsule 50 mcg PO DAILY Qty: 90 3RF clotrimazole-betamethasone 1-0.05 % cream 1 appl topical BID PRN (Reason: itching) 7 Days Qty: 45 0RF cyclobenzaprine 5 mg tablet 5 mg PO TID PRN (Reason: muscle spasm) Qty: 20 0RF escitalopram oxalate 10 mg tablet 10 mg PO DAILY 90 Days Qty: 90 1RF fluticasone propionate [Flonase Allergy Relief] 50 mcg/actuation spray,suspension 1 spray intranasal DAILY 30 Days Qty: 16 1RF Rx Instructions: administer into each nostril hydrocortisone [Anti-Itch (HC)] 1 % cream 1 appl topical TID PRN (Reason: skin irritation) 14 Days Qty: 28.4 1RF meclizine [Dramamine Less Drowsy] 25 mg tablet 25 mg PO TID PRN (Reason: dizziness) Qty: 30 0RF Myrbetriq 50 mg tablet extended release 24 hr 50 mg PO DAILY Qty: 90 2RF sennosides [Natural Senna Laxative] 8.6 mg tablet 17.2 mg PO BEDTIME Qty: 180 3RF polyethylene glycol 3350 [Miralax] 17 gram/dose powder 17 g PO DAILY Qty: 510 2RF Print Language: Icelandic
[2024-02-18 11:44] VITALS: BP 125/85; PULSE 64; RESP 20; TEMP 36.8; O2SAT 94
== END 2024-02-18 11:45 | disposition home or self-care (01) ==
PROVIDERS: Emergency Provider Emergency Medicine
DX: J02.9 Acute pharyngitis, unspecified (principal); R05.9 Cough, unspecified; M62.838 Other muscle spasm; Z11.52 Encounter for screening for COVID-19; Z20.822 Contact with and (suspected) exposure to COVID-19
CPT/HCPCS: 0241U; 87651; 99212; 99282; 99283

== ENCOUNTER 2024-02-18 14:11 | Outpatient (AMB) | payer OTHER, SELFPAY ==
--- NOTE | 2024-02-18 14:14 | MHC.OFFVIS ---
Vital Signs 02/18/24 14:15 Height 5 ft 4 in Weight 169 lb 5.04 oz BMI 29.1 BP 111/70 Blood Pressure Location Lt brachial Position Sitting Pulse 84 Intake Visit Reasons: Follow Up Upper Endoscopy & Colon. Intake Note: Patient in office today in follow up s/p EGD and Colonoscopy. CC: Patient states that she has been seen 3 times in the ED d/t sore throat and swelling from her neck and throat. Patient also states that she d/c'd the Senna per Dr. Melendez's advise and is now taking Miralax. She states this helps her to have BMs but she is getting bloated. 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 Patient was encouraged to increase fluid intake and activity to promote better bowel motility. Will send patient for upper endoscopy history of celiac, unsure patient is really compliant with avoiding gluten. Patient denies any dyspepsia, dysphagia or odynophagia. Patient denies any epigastric pain. What to expect before during and after procedure discussed with patient. Stressed the importance of good bowel prep day before the procedure as well as clear liquid diet. Patient will stop taking iron supplements 1 week before the procedure. Patient was encouraged to stop taking NSAIDs. I will see patient after the procedure, sooner on as needed basis. Patient is agreeable to this plan and verbalizes understanding of instructions. She was given the opportunity to ask questions and all questions answered. ? Thank you for allowing me to participate in her care Medications New bisacodyl (Dulcolax (bisacodyl)) take 4 tabs at noon the day before your colonoscopy 20 mg (4 x 5 mg) PO ONCE 1 day 4 tabs 0RF Z12.11 polyethylene glycol 3350 (Miralax) As directed by gastroenterology department at [facility] 238 grams PO ONCE 238 grams 0RF Z12.11 UPPER ENDOSCOPY AND COLONOSCOPY Findings: Larynx:normal Esophagus: GE junction at 35 cm, diaphragm hiatus at 35 cm, normal mucosa--bx taken from GEJ and distal esophagus Stomach: Patchy erythema. Biopsies were obtained. Grade 2 flap valve on retroflexed examination of the cardia. Duodenum: Fissured mucosa, bx taken Findings: Terminal Ileum-normal, bx taken Melanosis coli throughout colon Cecum: granular mucosa, bx taken Ascending Colon: normal Transverse Colon -normal Descending Colon:normal Sigmoid Colon: normal Rectum: Retroflexion with small internal hemorrhoids, grade I Anorectum - normal Colon preparation: [place] Bowel Preparation Scale Right colon; 2 Transverse colon: 2 Left colon; 1-2 (0 = Unprepared colon segment with mucosa not seen due to solid stool that cannot be cleared. 1 = Portion of mucosa of the colon segment seen, but other areas of the colon segment not well seen due to staining, residual stool and/or opaque liquid. 2 = Minor amount of residual staining, small fragments of stool and/or opaque liquid, but mucosa of colon segment seen well. 3 = Entire mucosa of colon segment seen well with no residual staining, small fragments of stool or opaque liquid) Impression and Post Procedure Diagnosis: Endoscopy Findings: gastritis duodenopathy -appearances consistent with mild celiac disease Colonoscopy Findings: internal hemorrhoids melanosis coli Plan: Await Pathology results Repeat Colonoscopy in 5 years due to fair prep left colon or earlier if clinically indicated High fiber diet leaflet avoid straining at stool, epsom salts and sitz bath, anusol supps or cream gluten free diet adherence (admits to not being compliant) PATHOLOGY RESULTS Diagnosis A. Duodenum, biopsy: Duodenal mucosa with predominantly preserved villi, focal features of chronic/ nonspecific duodenitis, and increased intraepithelial lymphocytes compatible with the patient's history of celiac disease. B. Stomach, biopsy: Gastric antral and body mucosa with minimal chronic inactive gastritis; negative for H pylori, intestinal metaplasia and dysplasia. C. Gastroesophageal junction, biopsy: Squamocolumnar mucosa with mild chronic inflammation and focal intestinal metaplasia; negative for dysplasia (see comment). D. Esophagus, distal, biopsy: Squamous mucosa with no specific change; no columnar mucosa present. E. Terminal ileum, biopsy: Ileal mucosa with no specific change. F. Colon, right, biopsy: Colonic mucosa with pigmented lamina propria macrophages consistent with melanosis coli, otherwise no specific change. 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 Clinical and endoscopic correlation is advised TODAY'S VISIT Patient is here today to discuss colonoscopy and upper endoscopy. Patient just went to the ER and was diagnosed with pharyngitis. Patient reports that she not always is taking 2 gluten free diet. Patient reports frequent postprandial abdominal bloating. Currently not on any PPI. Upper endoscopy and colonoscopy discussed with patient. Stop taking Senokot, diagnosed with melanosis coli on colonoscopy. Patient denies melena, hematochezia, unintentional weight loss or ribbon like stools. Patient reports occasional dyspepsia, acid reflux without dysphagia or odynophagia. [facility] Medical History (Updated 02/18/24 @ 15:56 by Stephanie Grey, [facility]) Melanosis coli Urgency incontinence Internal and external prolapsed hemorrhoids Constipation by delayed colonic transit Blurry vision Mild recurrent major depression Physical exam Adult celiac disease GERD (gastroesophageal reflux disease) Anemia PAC (premature atrial contraction) Anxiety and depression Chest pain Polyarthralgia Herpes Depression History of celiac disease Hx of gastroesophageal reflux (GERD) Hx of constipation Hx of chronic kidney disease Surgical History (Updated 02/18/24 @ 14:25 by Mahi Webb [facility]) History of esophagogastroduodenoscopy (EGD) H/O colonoscopy Hx of varicose vein ligation and stripping Hx of section Family History Mother Hx of diabetes mellitus Hx of hypertensive heart disease Father Hx of diabetes mellitus Hx of hypertensive heart disease Paternal Uncle History of colon cancer Maternal Grandmother Cancer Daughter No problems noted. Sister No problems noted. Son No problems noted. Son No problems noted. Brother No problems noted. Paternal Grandfather History of colon cancer Social History Household Members: None Housing: Apartment Alcohol intake: never Patient Tobacco Use Status: Former Tobacco user Tobacco use type: Cigarette e-Cigarette/Vaping Use: Never Used Second Hand Smoke Exposure: No service: No Current occupational status: employed Current occupational exposures/hazards: No Cognitive needs: No Hearing needs: No Vision needs: No Female Reproductive History Menstrual Age of Menarche: 11 Review of Systems Const Denies weight gain and Denies weight loss ENT Reports no additional complaints, Denies dysphagia and Denies odynophagia Card Reports no additional complaints Resp Reports no additional complaints GI Denies abdominal pain, Denies belching, Denies melena, Denies bloating, Denies change in bowel habits, Denies dysphagia, Denies excessive flatus, Denies dyspepsia, Denies heartburn, Denies diarrhea, Denies loose stools, Denies nausea, Denies odynophagia and Denies vomiting Musc Reports no additional complaints Neuro Reports no additional complaints Psych Reports no additional complaints Endo Reports no additional complaints Physical Exam Vital Signs: Last Vital Signs Pulse 84 02/18/24 14:15 BP 111/70 02/18/24 14:15 BMI result Body Mass Index 29.1 Const General: healthy appearing, no acute distress and well developed Nutritional Appearance: well nourished Orientation/consciousness: patient oriented x3 Resp Effort & Inspection: normal respiratory effort, able to speak in complete sentences, no tracheal deviation and symmetric chest movement Auscultation: clear to auscultation bilaterally Cardio Rate: regular rate Heart sounds: S1 normal heart sound present and S2 normal heart sound present GI Inspection: Yes normal to inspection, No distended and Yes obesity Palpation (GI): Soft to palpation, not firm, nontender and No hepatosplenomegaly present Auscultation: normal bowel sounds General: Yes no CVA tenderness Back/Spine/Pelvis Back: no CVA tenderness Skin General skin exam: elasticity normal, turgor normal and dry skin Neuro General: patient oriented x3 Psych Appearance: grossly normal Mental Status: mental status grossly normal Assessment & Plan Assessment & Plan (1) Constipation by delayed colonic transit: Code(s): K59.01 - Slow transit constipation Category: Medical (2) Hx of gastroesophageal reflux (GERD): Code(s): Z87.19 - Personal history of other diseases of the digestive system Category: Medical (3) Adult celiac disease: Code(s): K90.0 - Celiac disease Category: Medical (4) Postprandial abdominal bloating: Code(s): R14.0 - Abdominal distension (gaseous) (5) Melanosis coli: Code(s): K63.89 - Other specified diseases of intestine Category: Medical (6) Postprandial epigastric pain: Code(s): R10.13 - Epigastric pain Plan Discussed with patient following strict gluten free diet to avoid her symptoms. Patient does admit that she occasionally will eat bread. Low FODMAP diet discussed with patient. I will start her on Nexium. Patient will take MiraLax daily, stopped Senokot or ready. Patient will increase fluid intake and activity to promote better bowel motility. I will see patient in 4 weeks, sooner on as needed basis. Patient is agreeable to this plan and verbalizes understanding of instructions. She was given the opportunity to ask questions and all questions answered. Thank you for allowing me to participate in her care Medications: New esomeprazole magnesium (Nexium) 40 mg PO DAILY 30 caps 5RF K21.9 - Gastro-esophageal reflux disease without esophagitis Coding Level of Care Code Est Pt Level 4 (44726) Diagnoses Constipation by delayed colonic transit K59.01 Hx of gastroesophageal reflux (GERD) Z87.19 Adult celiac disease K90.0 Postprandial abdominal bloating R14.0 Melanosis coli K63.89 Postprandial epigastric pain R10.13 Time Spent (min) 35 Comment 20 minutes spent with patient and additional 15 minutes spent reviewing her records
[2024-02-18 14:15] VITALS: BP 111/70; PULSE 84; BMI 29.1
== END 2024-02-18 14:50 | disposition home or self-care (01) ==
PROVIDERS: PCP Internal Medicine; Visit Provider Nurse Practitioner Family
DX: K90.0 Celiac disease (principal); R14.0 Abdominal distension (gaseous); K63.89 Other specified diseases of intestine; R10.13 Epigastric pain
CPT/HCPCS: 99214

== ENCOUNTER 2024-05-01 10:19 | Outpatient (REF) | payer OTHER, SELFPAY ==
[2024-05-02 03:22] LABS: CT PCR NOT DETECTED (Not Detect.); NG PCR NOT DETECTED (Not Detect.)
[2024-05-02 10:53] LABS: Bacterial Vaginosis PCR NEGATIVE (Negative); Candida Group PCR DETECTED (Not Detect); Candida glab krusei PCR NOT DETECTED (Not Detect); Trichomonas vaginalis PCR NOT DETECTED (Not Detect)
== END 2024-05-01 10:20 | disposition home or self-care (01) ==
LOC: HO.LAB 10:19
PROVIDERS: PCP Internal Medicine; Visit Provider Advanced Practice Midwife
DX: Z01.419 Encounter for gynecological examination (general) (routine) without abnormal findings (principal); Z20.2 Contact with and (suspected) exposure to infections with a predominantly sexual mode of transmission; N92.6 Irregular menstruation, unspecified
CPT/HCPCS: 0352U; 87491; 87591; 99396

== ENCOUNTER 2024-05-01 10:19 | Outpatient (AMB) | payer OTHER, SELFPAY ==
--- NOTE | 2024-05-01 10:50 | A.OFFVIS_ITS ---
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 Attempting to eat a healthy diet with vitamin D, active at work. Currently sexually active. Denies any vaginal dryness or irritation. STI testing offered; she accepts. Last pap smear; issue 2019. Last mammogram; 2023. Colonoscopy is date unknown. Denies any family history of breast or ovarian. FH of colon cancer. [facility] Melanosis coli Urgency incontinence Internal and external prolapsed hemorrhoids Constipation by delayed colonic transit Blurry vision Mild recurrent major depression Physical exam Adult celiac disease GERD (gastroesophageal reflux disease) Anemia PAC (premature atrial contraction) Anxiety and depression Chest pain Polyarthralgia Herpes Depression History of celiac disease Hx of gastroesophageal reflux (GERD) Hx of constipation Hx of chronic kidney disease Surgical History History of esophagogastroduodenoscopy (EGD) H/O colonoscopy Hx of varicose vein ligation and stripping Hx of section Family History Mother Hx of diabetes mellitus Hx of hypertensive heart disease Father Hx of diabetes mellitus Hx of hypertensive heart disease Paternal Uncle History of colon cancer Maternal Grandmother Cancer Daughter No problems noted. Sister No problems noted. Son No problems noted. Son No problems noted. Brother No problems noted. Paternal Grandfather History of colon cancer Social History Household Members: None Housing: Apartment Alcohol intake: never Patient Tobacco Use Status: Former Tobacco user Tobacco use type: Cigarette e-Cigarette/Vaping Use: Never Used Second Hand Smoke Exposure: No service: No Current occupational status: employed Current occupational exposures/hazards: No Cognitive needs: No Hearing needs: No Vision needs: No Female Reproductive History Menstrual Age of Menarche: 11 Total pregnancies: 3 Full term: 3 Number of Living Children: 3 Date of last pap smear: 07/27/20 (neg pap and hpv) Date of Mammogram: 10/27/23 (Birad 1) Review of Systems Const All systems reviewed & are unremarkable except as noted in HPI and below Reports as per HPI Eyes Reports no additional complaints ENT Reports no additional complaints Card Reports no additional complaints Resp Reports no additional complaints GI Reports as per HPI and Reports no additional complaints Reports as per HPI Musc Reports no additional complaints Skin/Breast Reports as per HPI Neuro Reports no additional complaints Psych Reports no additional complaints Endo Reports no additional complaints James/Lymph Reports no additional complaints Aller/Immun Reports no additional complaints Physical Exam Vital Signs: Last Vital Signs BP 100/60 05/01/24 10:51 BMI result Body Mass Index 29.9 Const General: cooperative, healthy appearing, no acute distress, well developed and alert Orientation/consciousness: patient oriented x3 HEENT Head: Yes normal to inspection Eyes General: appearance normal, both eyes and all related structures Neck Neck: Yes normal visual inspection Thyroid: Thyroid normal Chest Chest palpation & inspection: normal inspection of the chest and other (no puckering, dimpling, peau de orange, retraction, discharge, masses) Breast/axilla inspection: normal inspection of the breasts Breast/axilla palpation: normal palpation of the breasts Resp Effort & Inspection: normal respiratory effort GI Inspection: Yes normal to inspection and Yes scar Palpation (GI): Soft to palpation Rectal Exam - Female: deferred General: Yes bladder normal to palpation External Female Exam: normal external appearance and normal appearance of the urethra Speculum Exam - Vagina: normal appearance of the vagina, normal palpation, normal vaginal discharge and vaginal bleeding Speculum Exam - Cervix: normal appearance of the cervix and normal palpation Bimanual exam- vagina & uterus: normal bimanual exam, normal palpation, uterine size normal, bladder normal to palpation, normal palpation and non-tender Bimanual Exam- Adnexa, other: no masses OB/external & speculum: vaginal bleeding Skin General skin exam: no rashes or lesions noted Rashes: no rashes Neuro General: patient oriented x3 Cognition (Neuro): normal cognition Extrem General: Yes normal to inspection Psych Attitude: cooperative Thought process: Normal thought process present Assessment & Plan Assessment & Plan (1) Well woman exam with routine gynecological exam: Code(s): Z01.419 - Encounter for gynecological examination (general) (routine) without abnormal findings Category: Medical (2) Irregular bleeding: Code(s): N92.6 - Irregular menstruation, unspecified Category: Medical Plan Discussed: Current recommendations for pap smears per ASCCP guidelines. Breast awareness, periodic self breast exams and yearly mammogram. Maintain a healthy lifestyle, well balanced diet including Calcium 1,200 mg and Vitamin D 600 IU daily, and routine exercise. Use of condoms for STI prevention if indicated. Contact the office with any abnormal bleeding. Plan pelvic ultrasound, lab work, ultrasound follow up in endometrial biopsy at next visit. Patient verbalizes understanding and agrees to the plan of care. She was given opportunity to ask questions and all questions were answered to the best of my ability. 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 This note is constructed using voice recognition software. While every effort has been made to ensure accuracy, manager pest errors may have been included. Orders: Orders US pelvic and transvaginal Today N92.6 - Irregular menstruation, unspecified TSH reflex Free T4 Today N92.6 - Irregular menstruation, unspecified Syphilis Screen Today Z20.2 - Contact with and (suspected) exposure to infections with a predominantly sexual mode of transmission Follicle Stimulating Hormone Today N92.6 - Irregular menstruation, unspecified, R23.2 - Flushing HIV Ab/Ag Today Z20.2 - Contact with and (suspected) exposure to infections with a predominantly sexual mode of transmission Hepatitis C Antibody Reflex Today Z20.2 - Contact with and (suspected) exposure to infections with a predominantly sexual mode of transmission Hepatitis B Core Antibody Today Z20.2 - Contact with and (suspected) exposure to infections with a predominantly sexual mode of transmission Bacterial Vaginosis Panel Today N92.6 - Irregular menstruation, unspecified, Z20.2 - Contact with and (suspected) exposure to infections with a predominantly sexual mode of transmission CT NG by PCR Today N92.6 - Irregular menstruation, unspecified, Z20.2 - Contact with and (suspected) exposure to infections with a predominantly sexual mode of transmission Coding Level of Care Code Est Pt Prev Care 40-64y(01327) Diagnoses Well woman exam with routine gynecological exam Z01.419 Irregular bleeding N92.6
[2024-05-01 10:51] VITALS: BP 100/60; BMI 29.9
== END 2024-05-01 11:30 | disposition home or self-care (01) ==
PROVIDERS: PCP Internal Medicine; Visit Provider Advanced Practice Midwife
DX: Z01.419 Encounter for gynecological examination (general) (routine) without abnormal findings (principal); N92.6 Irregular menstruation, unspecified
CPT/HCPCS: 99396

== ENCOUNTER 2024-05-01 11:26 | Outpatient (REF) | payer OTHER, SELFPAY | END 2024-05-01 11:27 | disposition home or self-care (01) | LOC: HO.LNP 11:26 | PROVIDERS: Visit Provider Advanced Practice Midwife | DX: Z13.89 Encounter for screening for other disorder (principal) ==

== ENCOUNTER 2024-05-06 07:19 | Outpatient (REF) | payer OTHER, SELFPAY ==
[2024-05-06 08:46] LABS: Syphilis Screen Nonreactive (Nonreactive)
[2024-05-06 08:47] LABS: HBc Num1 0.11 S/CO (0.00-0.79); HIV AB/AG Nonreactive (Nonreactive); HIV Num 1 0.05 S/CO (0.00-0.99); Hepatitis B Core Antibody Nonreactive (Nonreactive); ~HepC Num1 0.23 S/CO (0.00-0.79); ~Hepatitis C Antibody Nonreactive (Nonreactive)
[2024-05-06 08:51] LABS: TSH reflex Free T4 2.35 uIU/mL (0.32-4.0)
[2024-05-07 10:49] LABS: Follicle Stimulating Hormone 61.3 mIU/mL
== END 2024-05-06 07:20 | disposition home or self-care (01) ==
LOC: HO.LAB 07:19
PROVIDERS: PCP Internal Medicine; Visit Provider Advanced Practice Midwife
DX: R23.2 Flushing (principal); N92.6 Irregular menstruation, unspecified; Z20.2 Contact with and (suspected) exposure to infections with a predominantly sexual mode of transmission
CPT/HCPCS: 36415; 83001; 84443; 86704; 86780; 86803; 87389

== ENCOUNTER 2024-05-12 11:21 | Outpatient (REF) | payer OTHER, SELFPAY ==
--- NOTE | ~2024-05-12 | US_ITS ---
EXAMINATION: US PELVIS CLINICAL INFORMATION: Irregular menstruation COMPARISON: None available. TECHNIQUE: Ultrasound of the pelvis is performed using both transabdominal and transvaginal transducers along with Doppler. Transvaginal imaging is performed due to inadequate visualization transabdominally. FINDINGS: Uterus: The uterus is anteverted and retroflexed measuring 10.7 x 4.5 x 5.5 cm. The double wall endometrial thickness is 0.3 cm. The uterus is smooth in contour and has normal myometrial echogenicity. Posterior fundal broad-based subserosal heterogeneous leiomyomatous measures 2.8 x 2.2 x 3.0 cm. Adnexa: Both ovaries are visualized. There is normal color flow to the adnexa. There is no pelvic ascites or fluid collection. Right ovary measures 1.5 x 2.4 x 2.2 cm measured transabdominally only. Left ovary measures 2.0 x 2.0 x 4.8 cm measured transabdominally only US/US pelvic and transvaginal IMPRESSION: Suboptimal evaluation. Likely posterior fundal subserosal fibroid measuring up to 3 cm.
== END 2024-05-12 11:22 | disposition home or self-care (01) ==
LOC: HO.US 11:21
PROVIDERS: PCP Internal Medicine; Visit Provider Advanced Practice Midwife
DX: N92.6 Irregular menstruation, unspecified (principal)
CPT/HCPCS: 76830; 76856

== ENCOUNTER 2024-05-19 14:03 | Emergency (ER) | payer OTHER, SELFPAY ==
--- NOTE | ~2024-05-19 | CT_ITS ---
EXAMINATION: CTA CHEST PE STUDY CLINICAL INFORMATION: chest pain, dyspnea, concern for PE COMPARISON: No pertinent prior studies are available for comparison. TECHNIQUE: Prior to contrast administration, noncontrast localization images were obtained. After the administration of 65 mL of Omnipaque nonionic IV contrast, contiguous thin slice helical images were obtained through the thorax. Reformatted MIP images in the coronal and sagittal planes were obtained at the acquisition workstation. This CT examination was performed using dose optimization techniques as appropriate, variously including the following: *Automated exposure control *Adjustment of mA and/or kV according to patient size (this includes techniques or standardized protocols for targeted exams where dose is matched to indication/reason for exam; i.e. extremities or head) *Use of iterative reconstruction technique DLP: 297 mGy-cm. FINDINGS: The bolus timing on this study was acceptable for visualization of the pulmonary arterial tree. There are no intraluminal pulmonary arterial filling defects present to suggest pulmonary embolism. Mild bibasilar dependent atelectasis. No abnormal pulmonary nodules or masses are appreciated. No significant hilar or mediastinal adenopathy. There is no evidence of pleural effusion or pneumothorax. The heart is normal in size. No evidence of ventricular septal bowing or right heart strain. Great vessels are normal. Otherwise the mediastinum is unremarkable. There is no pericardial effusion or pericardial thickening. Limited evaluation of the upper abdominal viscera is unremarkable. CT/CT angio chest PE protocol IMPRESSION: 1. No evidence for pulmonary emboli. Mild basilar atelectasis. 2. VTE: Negative.
--- NOTE | ~2024-05-19 | XR_ITS ---
EXAMINATION: XR CHEST CLINICAL INFORMATION: Chest pain COMPARISON: Chest 03/19/2023 TECHNIQUE: 2 views of the chest were obtained. FINDINGS: No significant abnormality is noted involving the heart, lungs, mediastinum, bony thorax or soft tissues. Hiatal hernia is noted. XR/XR chest 2V IMPRESSION: No acute cardiopulmonary disease.
--- NOTE | 2024-05-19 14:05 | ECG_ITS ---
Test Reason : CHEST PAIN Blood Pressure : / mmHG Vent. Rate : 076 BPM Atrial Rate : 076 BPM P-R Int : 152 ms QRS Dur : 070 ms QT Int : 374 ms P-R-T Axes : 021 -11 -26 degrees QTc Int : 420 ms Normal sinus rhythm Low voltage QRS Nonspecific T wave abnormality Abnormal ECG When compared with ECG of 07-MAR-2023 19:52, No significant change was found Referred By: Kerry Galvin Electronically Signed By:Rangel Nava
[2024-05-19 14:29] VITALS: BP 106/70; PULSE 77; RESP 16; TEMP 37.1; O2SAT 97; BMI 29.4
--- NOTE | 2024-05-19 14:31 | ED_ITS ---
HPI - Chest Pain General Chief Complaint: Chest Pain Stated Complaint: Chest Pain Time Seen by Provider: 05/19/24 19:55 Source: patient Mode of arrival: ambulatory Limitations: no limitations History of Present Illness ED Provider: PA HPI narrative: 53 yo female with PMH of overactive bladder, insomnia, PACs, GERD, constipation, CKD, celiac ds, depression, anxiety and depression here with c/o intermittent stabbing chest pain occurring at rest - started last night seemed to be okay after 20 minutes went to bed. This AM seemed fine went to urgent care as she also noted hives on abdomen denies known exposures other than undifferentiated bite on her R foot that is not a hive. She denies dyspnea, n/v, fevers, cough. This afternoon had another 30 min episode at rest with palpitations sharp pain. She has no travel, procedures, hx of clot. No known heart disease. MD complaint: chest pain Onset (ago): day(s) (last night) Timing of current episode: episodic Prior episodes: Yes Onset: during rest Pain location: substernal Pain radiation: none Severity: mild Quality: sharp Relieving factors: nothing Exacerbating factors: stress Context: other (unsure occurred at rest) Associated symptoms: other (has hives on abdomen as well but did not start during pain episode) Treatment prior to arrival: none Related Data Home Medications ?Medication ?Instructions ?Recorded ?Confirmed clindamycin HCl 300 mg capsule 300 mg PO Q6H 02/18/24 Previous Rx's ?Medication ?Instructions ?Recorded cromolyn 4 % eye drops 1 drp ophthalmic (eye) QID 5 days 04/17/23 #10 mL cholecalciferol (vitamin D3) 50 50 mcg PO DAILY #90 caps 06/27/23 mcg (2,000 unit) capsule clotrimazole-betamethasone 1 1 appl topical BID PRN itching 7 06/27/23 %-0.05 % topical cream days #45 grams fluticasone propionate 50 1 spray intranasal DAILY 30 days 06/27/23 mcg/actuation nasal #16 grams spray,suspension (Flonase Allergy Relief) hydrocortisone 1 % topical cream 1 appl topical TID PRN skin 06/27/23 (Anti-Itch (hydrocortisone)) irritation 2 weeks #28.4 grams meclizine 25 mg tablet (Dramamine 25 mg PO TID PRN dizziness #30 tabs 06/27/23 Less Drowsy) polyethylene glycol 3350 17 17 g PO DAILY #510 grams 07/06/23 gram/dose oral powder (Miralax) acetaminophen 650 mg 1,300 mg (2 x 650 mg) PO Q8H PRN 11/09/23 tablet,extended release fever or pain 30 days #180 tabs lidocaine 5 % topical patch 1 patch topical DAILY #15 ea 11/09/23 ferrous sulfate 325 mg (65 mg 325 mg PO DAILY 90 days #90 tabs 11/11/23 iron) tablet acetaminophen 500 mg capsule 500 mg PO Q6H PRN fever or pain 02/14/24 #20 caps cetirizine 10 mg tablet 10 mg PO DAILY #14 tabs 02/18/24 cyclobenzaprine 5 mg tablet 5 mg PO TID PRN muscle spasm #10 02/18/24 tabs esomeprazole magnesium 40 mg 40 mg PO DAILY #30 caps 02/18/24 capsule,delayed release (Nexium) escitalopram oxalate 10 mg tablet 10 mg PO DAILY 90 days #90 tabs 03/19/24 ketoconazole 2 % shampoo 1 appl topical 2XW 30 days #120 mL 04/25/24 cetirizine 10 mg tablet 10 mg PO DAILY PRN allergy 05/19/24 symptoms #30 tabs prednisone 20 mg tablet 40 mg (2 x 20 mg) PO DAILY 5 days 05/19/24 #10 tabs Allergies Allergy/AdvReac Type Severity Reaction Status Date / Time gluten [GLUTEN] Allergy Intermediate CELIAC Verified 05/19/24 14:30 DISEASE Penicillins [PENICILLINS] Allergy Intermediate AGITATION Verified 05/19/24 14:30 Review of Systems 2 Review of Systems: Constitutional : No Weight loss, No Fever, No Chills ENT/Mouth : No sore throat, No Rhinorrhea Eyes: No Eye Pain, No Swelling Cardiovascular : pos Chest Pain, no SOB, no Dyspnea on Exertion, No Orthopnea, No Edema, No Palpitations Respiratory : No Cough, No Sputum Gastrointestinal : no Nausea, No Vomiting, No Diarrhea, No abdominal Pain, No Hematochezia, No Melena Genitourinary : No Dysuria, No Urinary Frequency Musculoskeletal : No joint pain, No Myalgias, No Joint Swelling Skin : No Skin Lesions, pos rash Neuro : No Weakness, No Numbness, No Dizziness, No Headache Psych : pos Anxiety/Panic, No Depression Heme/Lymph: No Bruising, No Lymphadenopathy Endocrine : No Polyuria, No Polydipsia All other systems reviewed and are negative PMFSH Past Medical History Attestation statement: The following information was validated with the patient. Source: old records reviewed Medical History Melanosis coli Urgency incontinence Internal and external prolapsed hemorrhoids Constipation by delayed colonic transit Blurry vision Mild recurrent major depression Physical exam Adult celiac disease GERD (gastroesophageal reflux disease) Anemia PAC (premature atrial contraction) Anxiety and depression Chest pain Polyarthralgia Herpes Depression History of celiac disease Hx of gastroesophageal reflux (GERD) Hx of constipation Hx of chronic kidney disease Surgical History History of esophagogastroduodenoscopy (EGD) H/O colonoscopy Hx of varicose vein ligation and stripping Hx of section Family History Family History Mother Hx of diabetes mellitus Hx of hypertensive heart disease Father Hx of diabetes mellitus Hx of hypertensive heart disease Paternal Uncle History of colon cancer Maternal Grandmother Cancer Daughter No problems noted. Sister No problems noted. Son No problems noted. Son No problems noted. Brother No problems noted. Paternal Grandfather History of colon cancer Social History Social History Household Members: None Housing: Apartment Alcohol intake: never Patient Tobacco Use Status: Former Tobacco user Tobacco use type: Cigarette Smoked in Last 30 Days: No e-Cigarette/Vaping Use: Never Used Second Hand Smoke Exposure: No Use of substances other than those prescribed or required for medical reasons: No Advance Directives: No Advance Directives Information Provided: No Patient : No service: No Current occupational status: employed Current occupational exposures/hazards: No Cognitive needs: No Hearing needs: No Vision needs: No Physical Exam 2 Vital Signs: Vital Signs: Last Vital Signs Temp 97 F 05/19/24 22:31 Pulse 70 05/19/24 22:31 Resp 18 05/19/24 22:31 BP 108/67 05/19/24 22:31 Pulse Ox 99 05/19/24 22:31 O2 Del Method Room Air 05/19/24 22:31 BMI result Body Mass Index 29.4 Appearance: Alert. Oriented X3. No acute distress. Eyes: Pupils equal, round and reactive to light. ENT: Pharynx normal. Neck: Normal inspection. Neck supple. CVS: Normal heart rate and rhythm. Pulses normal. Respiratory: No respiratory distress. Breath sounds normal. Abdomen: Soft and nontender. Skin: Skin warm and dry. Normal skin color. Normal skin turgor. diffuse patches of hives noted on trunk - abdomen and chest Extremities: No lower extremity edema. No calf ttp Neuro: Oriented X 3. No motor deficit. No sensory deficit. Course Course Course Narrative: This is an RME: Additional HPI, ROS, PE not included below will be deferred to primary provider. RME assessment and note performed by: Kerry Galvin PA-C This is a [id number]-female, with a hx of depression, GERD, PAC, depression, who presents to the ER with complaints of chest pain since yesterday. Reports chest pain is intermittent. Plan: Labs, EKG, CXR Medications Administered Discontinued Medications Generic Name Dose Route Start Last Admin Trade Name Freq PRN Reason Stop Dose Admin Iohexol 65 ml 05/19/24 20:51 05/19/24 20:52 Iohexol 350 Mg/Ml 100 Ml Infus..Btl IV 05/19/24 20:52 65 ml ONCE ONE Administration Methylprednisolone Sodium Succinate 60 mg 05/19/24 21:03 05/19/24 21:30 Methylprednisolone Sod Succ 125 Mg/2 Ml Vial IVPUSH 05/19/24 21:04 60 mg ONCE ONE Administration Medical Decision Making Medical Decision Making MDM Narrative: 53 yo female with PMH of overactive bladder, insomnia, PACs, GERD, constipation, CKD, celiac ds, depression, anxiety and depression here with c/o atypical sharp intermittent chest pain with no associated dyspnea and not related to exertion seems atyipcal for ACS. She denies VTE hx but has t wave inversions on EKG. She is pain free now with two negative troponins. Will obtain CTA to rule out VTE given t wave inversions. She denies infectious symptoms. She will also get steroids for hives no resp involvement no signs of cellulitis. Differential Diagnosis Differential Diagnoses: The differential diagnosis associated with the presentation includes atypical chest pain, VTE, allergic reaction, hives Admission/Observation Consideration of admission/observation: Escalation of care including admission/observation considered trop negative x 2, atypical symptoms, VTE negative Lab Data MDM Lab Attestation statement: I reviewed the patient's lab results. 05/19/24 14:45 05/19/24 14:45 Labs: Lab Results 05/19/24 05/19/24 Range/Units 14:45 20:17 WBC 6.2 (4.8-10.8) X10*3/uL RBC 4.56 (4.20-5.50) X10*6/uL Hgb 14.0 (12.0-16.0) g/dl Hct 41.6 (37.0-47.0) % MCV 91.2 (80.0-98.0) fL MCH 30.7 (27.0-33.0) pg MCHC 33.7 (31.0-35.0) g/dl RDW 14.0 (11.0-16.0) % Plt Count 363 (160-400) X10*3/uL MPV 9.7 (9.4-12.3) fL Immature Gran % (Auto) 0.2 (0.0-0.4) % Neut % (Auto) 61.2 (45-73) % Lymph % (Auto) 29.4 (20-40) % [place] % (Auto) 8.4 (2-11) % Eos % (Auto) 0.3 (0-4) % Baso % (Auto) 0.5 (0-2) % Lymph # (Auto) 1.8 (1.2-4.9) X10*3/uL [place] # (Auto) 0.5 (0.1-1.2) X10*3/uL Eos # (Auto) 0.0 (0.0-0.4) X10*3/uL Baso # (Auto) 0.0 (0.0-0.2) X10*3/uL Abs Immat Gran (auto) 0.01 (0.00-0.03) X10*3/uL Absolute Neuts (auto) 3.8 (2.0-8.3) x10*3/uL Absolute Nucleated RBC 0.000 (0.0-0.012) X10*3/uL Nucleated RBC % (auto) 0.0 (0.0-0.2) /100WBC Sodium 142 (135-145) mmol/L Potassium 3.8 (3.3-5.1) mmol/L Chloride 106 (96-108) mmol/L Carbon Dioxide 27 (22-29) mmol/L Anion Gap 13 (12-20) BUN 13 (9-16) mg/dL Creatinine 0.83 (0.5-1.4) mg/dL Estim Creat Clear Calc 78.1 Estimated GFR > 60 Random Glucose 119 H (60-115) mg/dL Calcium 9.5 D (8.4-10.2) mg/dL Magnesium 2.0 (1.6-2.6) mg/dL Total Bilirubin 0.4 (0.0-1.0) mg/dL Direct Bilirubin 0.1 (0.0-0.5) mg/dL AST 28 (5-31) U/L ALT 25 (0-31) U/L Alkaline Phosphatase 94 (39-117) U/L Troponin I High Sens < 2.7 < 2.7 (<3.5-17.0) ng/L Total Protein 7.6 (6.5-8.0) g/dL Albumin 4.2 (3.5-5.0) g/dL Lipase 40 (8-78) U/L Influenza Type A (PCR) NEGATIVE (Negative) Influenza Type B (PCR) NEGATIVE (Negative) RSV RNA Qual (PCR) NEGATIVE (Negative) SARS-CoV-2 RNA (RT-PCR) NEGATIVE (Negative) Independent Interpretation I performed an independent interpretation of an: EKG, Plain X-Ray (normal ) and CT Scan (no VTE) Interpretation: Rate: 76 Rhythm: NSR [place]: left Normal P waves. Normal [place]ANC[facility]. Normal QRS complex. ST T wave : no [place], inverted t waves in II, III, aVF, V3-V6 qTC: 420 prior studies: t wave inversions new in V5 and V6. The study has been interpreted contemporaneously by me. . Radiology Impression Discussion of test interpretation with radiology: I have reviewed the radiologist's reading. Independent Historian Clinical information obtained from an independent historian. History obtained from or confirmed by: Other (family) External Record Review External record reviewed: Office record Prescription Management I considered prescription management with: Other Discharge Plan Discharge Clinical Impression: Atypical chest pain, Hives Patient Disposition: Home, Self-Care Instructions: Chest Pain (ED), Urticaria (ED) Additional Instructions: heart test normal x 2, CT scan no blood clots start steroids and zyrtec tomorrow if itching bed can take benadryl follow up with primary care doctor if chest pain continues Prescriptions: New prednisone 20 mg tablet 40 mg PO DAILY 5 Days Qty: 10 0RF cetirizine 10 mg tablet 10 mg PO DAILY PRN (Reason: allergy symptoms) Qty: 30 0RF No Action cromolyn 4 % drops 1 drp ophthalmic (eye) QID 5 Days Qty: 10 0RF acetaminophen 650 mg tablet extended release 1,300 mg PO Q8H PRN (Reason: fever or pain) 30 Days Qty: 180 0RF lidocaine 5 % adhesive patch,medicated 1 patch topical DAILY Qty: 15 0RF Rx Instructions: leave on most painful area for up to 12 hrs ferrous sulfate 325 mg (65 mg iron) tablet 325 mg PO DAILY 90 Days Qty: 90 0RF escitalopram oxalate 10 mg tablet 10 mg PO DAILY 90 Days Qty: 90 1RF ketoconazole 2 % shampoo 1 appl topical 2XW 30 Days Qty: 120 6RF acetaminophen 500 mg capsule 500 mg PO Q6H PRN (Reason: fever or pain) Qty: 20 0RF cyclobenzaprine 5 mg tablet 5 mg PO TID PRN (Reason: muscle spasm) Qty: 10 0RF cetirizine 10 mg tablet 10 mg PO DAILY Qty: 14 0RF cholecalciferol (vitamin D3) 50 mcg (2,000 unit) capsule 50 mcg PO DAILY Qty: 90 3RF clotrimazole-betamethasone 1-0.05 % cream 1 appl topical BID PRN (Reason: itching) 7 Days Qty: 45 0RF fluticasone propionate [Flonase Allergy Relief] 50 mcg/actuation spray,suspension 1 spray intranasal DAILY 30 Days Qty: 16 1RF Rx Instructions: administer into each nostril hydrocortisone [Anti-Itch (HC)] 1 % cream 1 appl topical TID PRN (Reason: skin irritation) 14 Days Qty: 28.4 1RF meclizine [Dramamine Less Drowsy] 25 mg tablet 25 mg PO TID PRN (Reason: dizziness) Qty: 30 0RF polyethylene glycol 3350 [Miralax] 17 gram/dose powder 17 g PO DAILY Qty: 510 2RF clindamycin HCl 300 mg capsule 300 mg PO Q6H esomeprazole magnesium [Nexium] 40 mg capsule,delayed release(DR/EC) 40 mg PO DAILY Qty: 30 5RF Print Language: English
[2024-05-19 14:52] LABS: MANUAL DIFF FLAG NO
[2024-05-19 14:55] LABS: Basophils Percent Auto 0.5 % (0-2); Eosinophils Percent Auto 0.3 % (0-4); Hematocrit 41.6 % (37.0-47.0); Imm Gran Abs Auto 0.01 X10*3/uL (0.00-0.03); Imm Gran Pct Auto 0.2 % (0.0-0.4); Lymphocytes Absolute Auto 1.8 X10*3/uL (1.2-4.9); Lymphocytes Percent Auto 29.4 % (20-40); Mean Corpuscular HGB Conc 33.7 g/dl (31.0-35.0); Mean Corpuscular Hemoglobin 30.7 pg (27.0-33.0); Mean Corpuscular Volume 91.2 fL (80.0-98.0); Mean Platelet Volume 9.7 fL (9.4-12.3); Monocytes Absolute Auto 0.5 X10*3/uL (0.1-1.2); Monocytes Percent Auto 8.4 % (2-11); Neutrophils Absolute Auto 3.8 x10*3/uL (2.0-8.3); Neutrophils Percent Auto 61.2 % (45-73); Platelet Count 363 X10*3/uL (160-400); Red Blood Count 4.56 X10*6/uL (4.20-5.50); White Blood Count 6.2 X10*3/uL (4.8-10.8)
[2024-05-19 15:14] LABS: Alanine Aminotransferase 25 U/L (0-31); Albumin Level 4.2 g/dL (3.5-5.0); Alkaline Phosphatase 94 U/L (39-117); Anion Gap 13 (12-20); Aspartate Amino Transferase 28 U/L (5-31); Bilirubin Direct 0.1 mg/dL (0.0-0.5); Bilirubin Total 0.4 mg/dL (0.0-1.0); Blood Urea Nitrogen 13 mg/dL (9-16); Calcium 9.5 mg/dL (8.4-10.2); Carbon Dioxide 27 mmol/L (22-29); Chloride 106 mmol/L (96-108); Creatinine Clr Calc Pharmacy 78.1; Estimated Glomerular Filt Rate > 60; Glucose Random 119 mg/dL (60-115); Lipase 40 U/L (8-78); Potassium 3.8 mmol/L (3.3-5.1); Sodium 142 mmol/L (135-145); Total Protein 7.6 g/dL (6.5-8.0)
[2024-05-19 15:25] LABS: Troponin-I High Sensitivity < 2.7 ng/L (<3.5-17.0)
[2024-05-19 15:31] LABS: Influenza A PCR NEGATIVE (Negative); Influenza B PCR NEGATIVE (Negative); Resp Syncy Virus RNA Qual PCR NEGATIVE (Negative); SARS COV2 PCR INHOUSE NEGATIVE (Negative)
[2024-05-19 20:23] VITALS: BP 115/65; PULSE 64; RESP 14; TEMP 36.6; O2SAT 97
--- NOTE | 2024-05-19 20:26 | PC.NURSE ---
pt a&ox4, respirations even and unlabored. pt reporting onset of left sided chest pain x1 day, reports pain has increased overnight. reports intermittent shortness of breath due to the pain but at this time denies sob. pt denies n/v/d. pt denies sick contacts and recent travel. 20G placed in left ac, labs obtained and sent.
[2024-05-19] MEDS: iohexoL 350 MG/ML 100 ML INFUS..BTL 65 ML IV (20:52)
[2024-05-19 20:55] LABS: Troponin-I High Sensitivity < 2.7 ng/L (<3.5-17.0)
[2024-05-19] MEDS: methylPREDNISolone Sod Succ 125 MG/2 ML VIAL 60 MG IVPUSH (21:30)
[2024-05-19 22:31] VITALS: BP 108/67; PULSE 70; RESP 18; TEMP 36.1; O2SAT 99
[2024-05-19 23:13] VITALS: BP 108/67; PULSE 70; RESP 18; TEMP 36.1; O2SAT 99
[2024-05-19] MEDS: diphenhydrAMINE HCL 25 MG CAPSULE PO (23:17)
== END 2024-05-19 23:13 | disposition home or self-care (01) ==
PROVIDERS: Physician Assistant Medical; Emergency Provider Emergency Medicine; PCP Internal Medicine
DX: R07.89 Other chest pain (principal); L50.0 Allergic urticaria; Z79.899 Other long term (current) drug therapy; Z03.818 Encounter for observation for suspected exposure to other biological agents ruled out
CPT/HCPCS: 0241U; 36415; 71046; 71275; 80048; 80076; 83690; 83735; 84484; 85025; 93005; 96374; 99284; 99285; J2919; Q9967

== ENCOUNTER → 2024-05-19 14:05 | Outpatient (BNV) | payer OTHER, SELFPAY | PROVIDERS: Emergency Provider Emergency Medicine; PCP Internal Medicine; Visit Provider Internal Medicine Cardiovascular Disease | DX: R94.31 Abnormal electrocardiogram [ECG] [EKG] (principal) | CPT/HCPCS: 93010 ==

== ENCOUNTER 2024-06-12 10:11 | Outpatient (AMB) | payer OTHER, SELFPAY ==
--- NOTE | 2024-06-12 10:27 | A.OFFVIS_ITS ---
Vital Signs 06/12/24 10:31 BP 110/70 Intake Visit Reasons: US Follow up/EMB Vacuum Drier Tender Required: Yes Vacuum Drier Tender Language: Lens Grinder Rough Services: Vacuum Drier Tender Present (in person) Vacuum Drier Tender Name: Swetha ESCALANTE Information Interpreted: non-clinical & clinical Power Station Operator: Power Station Operator Present (Swetha ESCALANTE) Accompanied by: Self / Same As Patient Allergies gluten [GLUTEN] Allergy (Intermediate, Verified 06/12/24 10:31) CELIAC DISEASE Penicillins [PENICILLINS] Allergy (Intermediate, Verified 06/12/24 10:31) AGITATION Post menopausal: Yes HPI Comments Details: Patient is here today for ultrasound follow up and endometrial biopsy due to postmenopausal bleeding. [facility] Medical History (Updated 06/12/24 @ 11:12 by Radha Hassan CNM) Fibroid Melanosis coli Urgency incontinence Internal and external prolapsed hemorrhoids Constipation by delayed colonic transit Blurry vision Mild recurrent major depression Physical exam Adult celiac disease GERD (gastroesophageal reflux disease) Anemia PAC (premature atrial contraction) Anxiety and depression Chest pain Polyarthralgia Herpes Depression History of celiac disease Hx of gastroesophageal reflux (GERD) Hx of constipation Hx of chronic kidney disease Surgical History History of esophagogastroduodenoscopy (EGD) H/O colonoscopy Hx of varicose vein ligation and stripping Hx of section Family History Mother Hx of diabetes mellitus Hx of hypertensive heart disease Father Hx of diabetes mellitus Hx of hypertensive heart disease Paternal Uncle History of colon cancer Maternal Grandmother Cancer Daughter No problems noted. Sister No problems noted. Son No problems noted. Son No problems noted. Brother No problems noted. Paternal Grandfather History of colon cancer Social History Household Members: None Housing: Apartment Alcohol intake: never Patient Tobacco Use Status: Former Tobacco user Tobacco use type: Cigarette e-Cigarette/Vaping Use: Never Used Second Hand Smoke Exposure: No service: No Current occupational status: employed Current occupational exposures/hazards: No Cognitive needs: No Hearing needs: No Vision needs: No Female Reproductive History Menstrual Age of Menarche: 11 Review of Systems Const All systems reviewed & are unremarkable except as noted in HPI and below Physical Exam Vital Signs: Last Vital Signs BP 110/70 06/12/24 10:31 Const General: cooperative, healthy appearing and no acute distress Orientation/consciousness: patient oriented x3 GI Inspection: Yes normal to inspection Palpation (GI): Soft to palpation and Other GI palpation findings present (Nontender) Rectal Exam - Female: visual inspection normal General: Yes bladder normal to palpation External Female Exam: normal appearance of the urethra Speculum Exam - Vagina: normal appearance of the vagina, normal palpation and normal vaginal discharge Speculum Exam - Cervix: normal appearance of the cervix and normal palpation Bimanual exam- vagina & uterus: normal bimanual exam, normal palpation, uterine size normal, bladder normal to palpation, normal palpation, uterine shape normal and non-tender Bimanual Exam- Adnexa, other: normal adnexae Neuro General: patient oriented x3 Office Procedures Endometrial Biopsy Details: The patient is here today for an endometrial biopsy due to PMB to rule out any pathology including atypical, hyperplasia or cancer cells of the uterus. She was counseled regarding anticipatory guidance for the procedure including the risks for pain, infection, bleeding, perforation, potential injury to the tissues may include the cervix, uterus, tubes, bladder and bowels. These injuries may include further treatment and evaluation including surgery, blood transfusions, antibiotics, hospitalizations and anesthesia. Permanent injury and scarring can occur. She was consented for the procedure, and the consent forms were signed. She is agreeable to have the procedure today. All questions were answered. Endometrial Biopsy Procedure: The patient was placed in the dorsal lithotomy position and a sterile speculum inserted. Using aseptic technique for the procedure. The cervix was cleansed with Betadine x 3 swabs. A single toothed tenaculum was placed on the cervix for stabilization, the external cervical os was stenotic and gently dilated with a graduated dilator inserted 0.5 cm, and the uterus was sounded to 9 cm with a 4mm pipelle, and tissue sample obtained. Minimal bleeding was observed, Monsel's applied to left side tenaculum site with good results. The tissue sample was placed in formalin in a patient labeled container by staff assisting and sent to the pathology department for processing and interpretation. The patient tolerate the procedure well and was in good condition when leaving the department. Endometrial Biopsy Post Procedure Care: Nothing in the vagina including: tampons, douching or intimacy until all the bleeding has subsided. There may be some post procedure bleeding for several days, this bleeding is usually light and may turn to a light brown or pink color. Mild cramps may occurs. Nothing in the vaginal including: tampons, douching, or intimacy until all the bleeding has subsided. You may take an over the counter mild analgesic such as Tylenol or Advil (if no allergies) per the manufactures recommendation on dosing, frequency, and follow the directions completely. Call the office if any: fever (over 100.4), flu like symptoms, abdominal pain (worse than cramping), foul smelling, infected appearing vaginal discharge, or heavy bleeding. If indicated: Use condoms to prevent and STI's, and only after the bleeding has stopped completely. Return to the office in 2 weeks for results and plan of care. This note is constructed using voice recognition software. While every effort has been made to ensure accuracy, business services coordinator errors may have been included. [id number] Biopsy Assessment & Plan Assessment & Plan (1) Encounter to discuss test results: Code(s): Z71.2 - Person consulting for explanation of examination or test findings Category: Medical (2) Postmenopausal bleeding: Code(s): N95.0 - Postmenopausal bleeding (3) Uterine fibroid: Code(s): D25.9 - Leiomyoma of uterus, unspecified Plan Discussed: Ultrasound findings. Counseled re: Leiomyoma: common pelvic neoplasm. Differential diagnosis-may include but not limited to- leiomyosarcoma which is a rare uterine sarcoma 3-7/100,000, difficult to distinguish from fibroids on ultrasound from uterine sarcoma's. Unlikely any single test will have a highly p ositive predictive value. Hysterectomy is not recommended for sole purpose of excluding malignant neoplasm. Consult for surgical exploration, medical treatment, other treatments, verses expectant management, pros and cons, risks and benefits. Patient prefers expect did not management. Expectant management follow up in 6 months, then yearly for stability. Report any PMB. Pelvic pressure, bloating, or pain. Referral to MD if indicated for level of care if indicated. Ultrasound ordered for 11/10/2024, and follow up appointment for test results. All of her questions and concerns were addressed to the best of my ability and shared decision making. She is agreeable to the plan of care. This note is constructed using voice recognition software. While every effort has been made to ensure accuracy, business services coordinator errors may have been included. Orders: Orders US pelvic and transvaginal 11/03/24 D21.9 - Benign neoplasm of connective and other soft tissue, unspecified Coding Level of Care Code Procedure Only Diagnoses Encounter to discuss test results Z71.2 Postmenopausal bleeding N95.0 Uterine fibroid D25.9 CPT Codes Endometrial Biopsy - CPT: 17856-[id number] Biopsy ([id number])
[2024-06-12 10:31] VITALS: BP 110/70
== END 2024-06-12 11:16 | disposition home or self-care (01) ==
LOC: HO.HWS 10:11
PROVIDERS: PCP Internal Medicine; Visit Provider Advanced Practice Midwife
DX: N95.0 Postmenopausal bleeding (principal); D25.9 Leiomyoma of uterus, unspecified
CPT/HCPCS: 58100

== ENCOUNTER 2024-06-12 10:11 | Outpatient (REF) | payer OTHER, SELFPAY | END 2024-06-12 10:12 | disposition home or self-care (01) | LOC: HO.LNP 10:11 | PROVIDERS: PCP Internal Medicine; Visit Provider Advanced Practice Midwife | DX: N95.0 Postmenopausal bleeding (principal) | CPT/HCPCS: 58100; 88305 ==

== ENCOUNTER 2024-07-02 10:41 | Outpatient (AMB) | payer OTHER, SELFPAY ==
--- NOTE | 2024-07-02 10:49 | MHC.OFFVIS ---
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 History of postmenopausal bleeding. She reports no further bleeding. [facility] Medical History (Updated 06/12/24 @ 11:12 by Radha Hassan CNM) Fibroid Melanosis coli Urgency incontinence Internal and external prolapsed hemorrhoids Constipation by delayed colonic transit Blurry vision Mild recurrent major depression Physical exam Adult celiac disease GERD (gastroesophageal reflux disease) Anemia PAC (premature atrial contraction) Anxiety and depression Chest pain Polyarthralgia Herpes Depression History of celiac disease Hx of gastroesophageal reflux (GERD) Hx of constipation Hx of chronic kidney disease Surgical History History of esophagogastroduodenoscopy (EGD) H/O colonoscopy Hx of varicose vein ligation and stripping Hx of section Family History Mother Hx of diabetes mellitus Hx of hypertensive heart disease Father Hx of diabetes mellitus Hx of hypertensive heart disease Paternal Uncle History of colon cancer Maternal Grandmother Cancer Daughter No problems noted. Sister No problems noted. Son No problems noted. Son No problems noted. Brother No problems noted. Paternal Grandfather History of colon cancer Social History Household Members: None Housing: Apartment Alcohol intake: never Patient Tobacco Use Status: Former Tobacco user Tobacco use type: Cigarette e-Cigarette/Vaping Use: Never Used Second Hand Smoke Exposure: No service: No Current occupational status: employed Current occupational exposures/hazards: No Cognitive needs: No Hearing needs: No Vision needs: No Female Reproductive History Menstrual Age of Menarche: 11 Review of Systems Const All systems reviewed & are unremarkable except as noted in HPI and below Endo Reports no additional complaints Physical Exam Const General: cooperative, healthy appearing and no acute distress Psych Appearance: well kempt Attitude: cooperative Thought process: Normal thought process present Results Reviewed Results Reviewed: Name: Tere Schulte Age/Sex: 53/F Attending: Radha Hassan CNM : 1970 Submitted by: Radha Hassan CNM Copies to: Sisi Perez MD MR #: [id number] Status: DEP REF Collected: 06/12/24 Location: [facility] Received: 06/12/24 Diagnosis Endometrium, biopsy: Strips of endometrium and rare squamous epithelium within normal limits; mucoinflammatory material. Clinical History PMB Microscopic Description Microscopic sections reviewed. Material Received EMB Gross Description Received in formalin labeled ?EMB? is a 1.8 x 1.8 x 0.6 cm aggregate of predominantly mucus and blood and irregular fragments of congested and hemorrhagic red-maroon tissue, submitted in toto in a cassette labeled A. CEDS Copies To Radha Hassan CNM [facility] [address] [place] [address] Sisi Perez MD [facility] [place] [facility] [address] [place] [address] NOTE: Unless otherwise stated, all tissue is formalin-fixed and paraffin-embedded. Some or all of the immunohistochemical tests reported herein may have been developed and their performance characteristics determined by [facility]. They have not been cleared or approved by the U.S. Food and Drug Administration (FDA). However, the FDA has determined that such clearance or approval is not necessary. This laboratory is certified under the Clinical Laboratory Improvement Amendments of 1988 (CLIA) as qualified to perform high complexity clinical laboratory testing. Patient: Tere Schulte Age/Sex: 53/F MR#: [id number] Page 1 of 2 Assessment & Plan Assessment & Plan (1) Encounter to discuss test results: Code(s): Z71.2 - Person consulting for explanation of examination or test findings Category: Medical Plan Reviewed endometrial biopsy results which were negative. Appointments scheduled in the future, ultrasound November 03 and follow up office visit November 26, an annual scheduled in 05/10/2025. Advised to call if there is any further postmenopausal bleeding would need to consider repeating endometrial biopsies or other further workup. All of her questions and concerns were addressed to the best of my ability and shared decision making. She is agreeable to the plan of care. This note is constructed using voice recognition software. While every effort has been made to ensure accuracy, director imaging errors may have been included. Coding Level of Care Code Est Pt Level 3 (81584) Diagnoses Encounter to discuss test results Z71.2
== END 2024-07-02 11:34 | disposition home or self-care (01) ==
LOC: HO.HWS 10:41
PROVIDERS: PCP Internal Medicine; Visit Provider Advanced Practice Midwife
DX: Z71.2 Person consulting for explanation of examination or test findings (principal)
CPT/HCPCS: 99213

== ENCOUNTER → 2024-07-02 10:41 | Outpatient (BNVA) | payer OTHER, SELFPAY | PROVIDERS: PCP Internal Medicine; Visit Provider Advanced Practice Midwife | DX: N95.0 Postmenopausal bleeding (principal); Z71.2 Person consulting for explanation of examination or test findings | CPT/HCPCS: 99212 ==

== ENCOUNTER 2024-09-02 11:51 | Emergency (ER) | payer OTHER, SELFPAY ==
--- NOTE | ~2024-09-02 | XR_ITS ---
EXAMINATION: XR THORACIC SPINE CLINICAL INFORMATION: Pain COMPARISON: X-ray dated May 27, 2015 TECHNIQUE: 3 views of the thoracic spine were obtained. FINDINGS: Multilevel marginal osteophyte formation, endplate sclerosis and decreased disc height. No acute cortical disruption or gross malalignment. No lytic or blastic lesions. S-shaped curvature of the thoracic spine. XR/XR thoracic spine 3V IMPRESSION: Multilevel spondylosis and likely scoliosis, mild. Electronically signed by: Jonathan Berkowitz MD 09/02/2024 01:44 PM PEREZ
[2024-09-02 12:30] VITALS: BP 109/84; PULSE 89; RESP 16; TEMP 37; O2SAT 100; BMI 29.7
--- NOTE | 2024-09-02 12:39 | ED.GENADULT ---
HPI - General Adult General Chief complaint: Back Pain/Injury Stated complaint: back pain Time Seen by Provider: 09/02/24 18:55 History of Present Illness HPI narrative: Patient complains of left upper back pain that is been going on for many weeks, has seen urgent care twice and primary doctor once, is going to physical therapy but it is not helping, and she comes to the ER today with no acute change but wanting to be rechecked She denies any change to bowel or bladder no incontinence no dysuria, she denies any weakness or loss of sensation, no fever no IV drug use Pain is in left upper back area and left trapezius and worse with certain movements, it waxes and wanes Related Data Previous Rx's ?Medication ?Instructions ?Recorded cromolyn 4 % eye drops 1 drp ophthalmic (eye) QID 5 days 04/17/23 #10 mL cholecalciferol (vitamin D3) 50 50 mcg PO DAILY #90 caps 06/27/23 mcg (2,000 unit) capsule clotrimazole-betamethasone 1 1 appl topical BID PRN itching 7 06/27/23 %-0.05 % topical cream days #45 grams fluticasone propionate 50 1 spray intranasal DAILY 30 days 06/27/23 mcg/actuation nasal #16 grams spray,suspension (Flonase Allergy Relief) hydrocortisone 1 % topical cream 1 appl topical TID PRN skin 06/27/23 (Anti-Itch (hydrocortisone)) irritation 2 weeks #28.4 grams meclizine 25 mg tablet (Dramamine 25 mg PO TID PRN dizziness #30 tabs 06/27/23 Less Drowsy) polyethylene glycol 3350 17 17 g PO DAILY #510 grams 07/06/23 gram/dose oral powder (Miralax) acetaminophen 650 mg 1,300 mg (2 x 650 mg) PO Q8H PRN 11/09/23 tablet,extended release fever or pain 30 days #180 tabs lidocaine 5 % topical patch 1 patch topical DAILY #15 ea 11/09/23 ferrous sulfate 325 mg (65 mg 325 mg PO DAILY 90 days #90 tabs 11/11/23 iron) tablet acetaminophen 500 mg capsule 500 mg PO Q6H PRN fever or pain 02/14/24 #20 caps cetirizine 10 mg tablet 10 mg PO DAILY #14 tabs 04/29/24 cyclobenzaprine 5 mg tablet 5 mg PO TID PRN muscle spasm #10 02/18/24 tabs esomeprazole magnesium 40 mg 40 mg PO DAILY #30 caps 02/18/24 capsule,delayed release (Nexium) escitalopram oxalate 10 mg tablet 10 mg PO DAILY 90 days #90 tabs 03/19/24 ketoconazole 2 % shampoo 1 appl topical 2XW 30 days #120 mL 04/25/24 cetirizine 10 mg tablet 10 mg PO DAILY PRN allergy 05/19/24 symptoms #30 tabs prednisone 20 mg tablet 40 mg (2 x 20 mg) PO DAILY 5 days 05/19/24 #10 tabs Allergies Allergy/AdvReac Type Severity Reaction Status Date / Time gluten [GLUTEN] Allergy Intermediate CELIAC Verified 09/02/24 12:35 DISEASE Penicillins [PENICILLINS] Allergy Intermediate AGITATION Verified 09/02/24 12:35 [facility] Past Medical History Source: nursing notes reviewed Medical History (Updated 09/02/24 @ 19:48 by ELSA Laura) Fibroid Melanosis coli Urgency incontinence Internal and external prolapsed hemorrhoids Constipation by delayed colonic transit Blurry vision Mild recurrent major depression Physical exam Adult celiac disease GERD (gastroesophageal reflux disease) Anemia PAC (premature atrial contraction) Anxiety and depression Chest pain Polyarthralgia Herpes Depression History of celiac disease Hx of gastroesophageal reflux (GERD) Hx of constipation Hx of chronic kidney disease Surgical History History of esophagogastroduodenoscopy (EGD) H/O colonoscopy Hx of varicose vein ligation and stripping Hx of section Family History Family History Mother Hx of diabetes mellitus Hx of hypertensive heart disease Father Hx of diabetes mellitus Hx of hypertensive heart disease Paternal Uncle History of colon cancer Maternal Grandmother Cancer Daughter No problems noted. Sister No problems noted. Son No problems noted. Son No problems noted. Brother No problems noted. Paternal Grandfather History of colon cancer Social History Social History Household Members: None Housing: Apartment Alcohol intake: never Patient Tobacco Use Status: Former Tobacco user Tobacco use type: Cigarette e-Cigarette/Vaping Use: Never Used Second Hand Smoke Exposure: No service: No Current occupational status: employed Current occupational exposures/hazards: No Cognitive needs: No Hearing needs: No Vision needs: No Physical Exam ED Vital Signs: Vital Signs - 24 hr 09/02/24 12:30 09/02/24 18:43 09/02/24 19:55 Temperature 98.6 F 98.3 F 98.2 F Pulse Rate 89 68 74 Respiratory Rate 16 16 16 Blood Pressure 109/84 121/72 115/71 Pulse Oximetry 100 98 98 Oxygen Delivery Method Room Air Room Air Room Air BMI result Body Mass Index 29.7 General appearance no acute distress Head is normocephalic atraumatic Neck is supple Chest is clear to auscultation bilateral, no pleuritic pain with deep breath Heart no murmur Abdomen soft nontender The back had tenderness in left trapezius and left subscapular area, skin of the back was normal, pain is reproduced with some movements, no CVA tenderness Extremities full range motion x4 Skin no rash Neuro no focal motor or sensory deficits, gait balance were normal, motor is 5/5 x4, sensation intact and symmetrical in all extremities Course Course Course Narrative: This is a rapid medical exam performed by Adis Connor NP: Additional HPI, ROS, PE not included below will be deferred to primary provider. Patient is a 54-year-old presenting to the emergency department with complaint of left sided mid back pain since [place]. Treated with PT, medication, symptoms not improving. Intermittent paresthesia to bilat feet. Denies saddle anesthesia, bowel/bladder incontinence. Plan; xray X-ray showed spondylosis at multiple levels, no evidence of malignancy or fracture, no acute finding Patient's exam no neurologic deficit no incontinence no change to bowel or bladder no IV drug use no fever and pain is likely musculoskeletal Well-appearing patient is discharged Medications Administered Discontinued Medications Generic Name Dose Route Start Last Admin Trade Name Freq PRN Reason Stop Dose Admin Ketorolac Tromethamine 30 mg 09/02/24 19:43 09/02/24 19:52 Ketorolac Tromethamine 30 Mg/Ml Vial IM 09/02/24 19:44 30 mg ONCE ONE Administration Discharge Plan Discharge Clinical Impression: Back pain Patient Disposition: Home, Self-Care Additional Instructions: X-ray did not show any dangerous condition, but it did show some arthritis Pain is likely from muscles in her back Follow closely with primary doctor for further evaluation Return any time if worse Prescriptions: No Action cromolyn 4 % drops 1 drp ophthalmic (eye) QID 5 Days Qty: 10 0RF acetaminophen 650 mg tablet extended release 1,300 mg PO Q8H PRN (Reason: fever or pain) 30 Days Qty: 180 0RF lidocaine 5 % adhesive patch,medicated 1 patch topical DAILY Qty: 15 0RF Rx Instructions: leave on most painful area for up to 12 hrs ferrous sulfate 325 mg (65 mg iron) tablet 325 mg PO DAILY 90 Days Qty: 90 0RF escitalopram oxalate 10 mg tablet 10 mg PO DAILY 90 Days Qty: 90 1RF ketoconazole 2 % shampoo 1 appl topical 2XW 30 Days Qty: 120 6RF acetaminophen 500 mg capsule 500 mg PO Q6H PRN (Reason: fever or pain) Qty: 20 0RF cyclobenzaprine 5 mg tablet 5 mg PO TID PRN (Reason: muscle spasm) Qty: 10 0RF cetirizine 10 mg tablet 10 mg PO DAILY Qty: 14 0RF prednisone 20 mg tablet 40 mg PO DAILY 5 Days Qty: 10 0RF cetirizine 10 mg tablet 10 mg PO DAILY PRN (Reason: allergy symptoms) Qty: 30 0RF cholecalciferol (vitamin D3) 50 mcg (2,000 unit) capsule 50 mcg PO DAILY Qty: 90 3RF clotrimazole-betamethasone 1-0.05 % cream 1 appl topical BID PRN (Reason: itching) 7 Days Qty: 45 0RF fluticasone propionate [Flonase Allergy Relief] 50 mcg/actuation spray,suspension 1 spray intranasal DAILY 30 Days Qty: 16 1RF Rx Instructions: administer into each nostril hydrocortisone [Anti-Itch (HC)] 1 % cream 1 appl topical TID PRN (Reason: skin irritation) 14 Days Qty: 28.4 1RF meclizine [Dramamine Less Drowsy] 25 mg tablet 25 mg PO TID PRN (Reason: dizziness) Qty: 30 0RF polyethylene glycol 3350 [Miralax] 17 gram/dose powder 17 g PO DAILY Qty: 510 2RF esomeprazole magnesium [Nexium] 40 mg capsule,delayed release(DR/EC) 40 mg PO DAILY Qty: 30 5RF Interventions: ED Discharge Assessment Last Done: 09/02/24 19:55 Discharge Date/Time: 09/02/24 19:56 Print Language: Hungarian
[2024-09-02 18:43] VITALS: BP 121/72; PULSE 68; RESP 16; TEMP 36.8; O2SAT 98
[2024-09-02] MEDS: Ketorolac Tromethamine 30 MG/ML VIAL IM (19:52)
[2024-09-02 19:55] VITALS: BP 115/71; PULSE 74; RESP 16; TEMP 36.8; O2SAT 98
== END 2024-09-02 19:56 | disposition home or self-care (01) ==
PROVIDERS: Emergency Provider Emergency Medicine; PCP Internal Medicine
DX: M54.9 Dorsalgia, unspecified (principal)
CPT/HCPCS: 72072; 96372; 99283; 99284; J1885

== ENCOUNTER → 2024-09-02 12:41 | Outpatient (BNV) | payer OTHER, SELFPAY | PROVIDERS: PCP Internal Medicine; Visit Provider Radiology Diagnostic Radiology | DX: M54.2 Cervicalgia (principal) | CPT/HCPCS: 72072 ==

== ENCOUNTER 2024-09-03 14:59 | Outpatient (RCR) | payer OTHER, SELFPAY | END 2024-09-22 14:47 | disposition home or self-care (01) | LOC: HO.PT 14:59 | PROVIDERS: PCP Nurse Practitioner; Visit Provider Student in an Organized Health Care Education/Training Program | DX: M54.2 Cervicalgia (principal) | CPT/HCPCS: 97110; 97140; 97161; 97535 ==

== ENCOUNTER 2024-11-03 11:21 | Outpatient (REF) | payer OTHER, SELFPAY ==
--- NOTE | ~2024-11-03 | US_ITS ---
CLINICAL HISTORY: D21.9 - Benign neoplasm of connective and other soft tissue, unspecified US pelvis transvaginal Comparison: None Findings: Transvaginal scanning performed. The uterus is 10.3 cm length. Two fibroids are imaged, 1 measuring up to 3 cm, the other up to 2.5 cm along the uterine body. No endometrial lesion, for mm thickness. Incidental nabothian cysts. Right ovary 1.6 x 0.8 x 1.5 cm. Left ovary 2.2 x 0.8 x 1.6 cm. Normal color Doppler of both ovaries. No free fluid. IMPRESSION: Small uterine fibroids. No acute process. This document has been electronically signed by: Christiano Otto MD on 11/04/2024 13:01:24
== END 2024-11-03 11:22 | disposition home or self-care (01) ==
LOC: HO.US 11:21
PROVIDERS: PCP Internal Medicine; Visit Provider Advanced Practice Midwife
DX: D21.9 Benign neoplasm of connective and other soft tissue, unspecified (principal)
CPT/HCPCS: 76830; 76856

== ENCOUNTER → 2024-11-03 11:24 | Outpatient (BNV) | payer OTHER, SELFPAY | PROVIDERS: PCP Internal Medicine; Visit Provider Radiology Vascular & Interventional Radiology | DX: D25.9 Leiomyoma of uterus, unspecified (principal); N88.8 Other specified noninflammatory disorders of cervix uteri | CPT/HCPCS: 76830; 76856 ==